=== PATIENT | female | born 1960 | race African-American/Black ===

== ENCOUNTER 2017-01-16 15:02 | Inpatient (IN) | payer SELFPAY ==
[~2017-01-16] VITALS: Ht 157.5 cm; Wt 84.5 kg
[~2017-01-16 15:02] MED LIST: AMLO1CAP PO; BENA20TA2 PO; GLIP10TA13 PO; METF-620 PO; SULF1TAB24 PO
[2017-01-16] MEDS ORDERED: IV NORMAL SALINE 500ML BAG 500 ML IV ONE (15:45)
--- NOTE | 2017-01-16 16:09 | RAD ---
CT head without contrast 01/16/2017 at 1545 hours Indication: Right-sided facial droop and numbness with speech deficit Comparison: CT head 02/02/2015 Technique: Multiple axial CT images of the head were obtained from skull base to the vertex without intravenous contrast. Findings: Ventricles, sulci and basal cisterns are within normal limits. There is low attenuation in the left frontal. Ventricular white matter, right frontal periventricular white matter, right villela radiata and right precentral gyrus compatible with remote infarcts. Focal low attenuation in the right basal ganglia is compatible with a lacunar infarct. Findings are not significantly changed since 02/02/2015. No significant loss of the thomason-white matter differentiation to suggest an acute or subacute infarct. There is no intracranial hemorrhage. No mass, mass effect or midline shift. Visualized orbits paranasal sinuses and mastoid air cells are normal. Scalp and calvarium are normal. No acute fracture. Impression: 1. Sequela of chronic infarcts are noted, as detailed above. 2. No evidence for acute or subacute ischemia by CT. This does not exclude acute/subacute ischemia. No acute intracranial hemorrhage. Critical findings: Critical findings were discussed with Dr. Baugh at 4:00 PM on 01/16/[address] Gerard. PQRS Compliance Statement: One or more of the following individualized dose reduction techniques were utilized for this examination: 1. Automated exposure control 2. Adjustment of the mA and/or kV according to patient size 3. Use of iterative reconstruction technique
[2017-01-16 17:24] LABS: BASO % 1 % (0-3); EOS % 1 % (0-3); HEMATOCRIT 35.3 % (36.0-47.0); HEMOGLOBIN 11.8 g/dL (12.0-15.5); LYMPH # 1.7 x10^3/uL (1.0-4.8); LYMPH % 47 % (24-48); MEAN CORPUSCULAR HEMOGLOBIN 31 pg (25-35); MEAN CORPUSCULAR HGB CONC 34 g/dL (31-37); MEAN CORPUSCULAR VOLUME 92 fL (79-100); MONO % 7 % (0-9); NEUT % 44 % (31-73); PLATELET COUNT 245 x10^3/uL (140-400); RED BLOOD COUNT 3.85 x10^6/uL (3.50-5.40); RED CELL DISTRIBUTION WIDTH 14.2 % (11.5-14.5); WHITE BLOOD COUNT 3.6 x10^3/uL (4.0-11.0)
[2017-01-16 17:33] LABS: CREATININE 0.9 mg/dL (0.6-1.0); GFR 78.7; POTASSIUM 3.9 mmol/L (3.5-5.1)
[2017-01-16 17:39] LABS: ALBUMIN 3.9 g/dL (3.4-5.0); ALBUMIN/GLOBULIN RATIO 1.1 (1.0-1.7); TOTAL PROTEIN 7.5 g/dL (6.4-8.2)
[2017-01-16] MEDS ORDERED: IV NORMAL SALINE 1000ML BAG 1,000 ML IV ONE (17:45)
[2017-01-16 18:07] LABS: BILIRUBIN,URINE NEGATIVE (NEG); GLUCOSE,URINE NEGATIVE (NEG); NITRITE,URINE NEGATIVE (NEG); PH,URINE 7.5; PROTEIN,URINE NEGATIVE (NEG-TRACE)
[2017-01-16 18:25] LABS: BACTERIA,URINE FEW /HPF (0-FEW); RBC,URINE 0 /HPF (0-2); SQUAMOUS EPITHELIAL CELL,UR OCC /LPF
--- NOTE | 2017-01-16 19:22 | PHYS DOC ---
Past Medical History Past Medical History: CVA, Diabetes-Type II, Hypertension, Stroke Past Surgical History: Hysterectomy Alcohol Use: None Drug Use: None Adult General Chief Complaint Chief Complaint: NEURO SYMPTOMS/DEFICITS HPI HPI 56-year-old female with a history of stroke 4 years ago with no residual and another stroke 2 years ago with mild dysarthria since and mild right lower facial droop and her daughter now presents emergency department with suspected stroke symptoms. At 6 AM this morning patient was dropping off a family member at soccer practice and was observed to have difficulty with her speech and a right lower facial droop. This afternoon daughter became aware of the symptoms and brought the patient to the emergency department for evaluation since still has difficulty with speech and right mouth droop which is worse than her baseline. She also has right leg weakness which is new for her today. She was made a a code stroke in the emergency department Review of Systems Review of Systems Constitutional: Denies fever or chills [] Eyes: Denies change in visual acuity, redness, or eye pain [] HENT: Denies nasal congestion or sore throat [] Respiratory: Denies cough or shortness of breath [] Cardiovascular: No additional information not addressed in HPI [] GI: Denies abdominal pain, nausea, vomiting, bloody stools or diarrhea [] : Denies dysuria or hematuria [] Musculoskeletal: Denies back pain or joint pain [] Integument: Denies rash or skin lesions [] Neurologic: Denies headache, focal weakness or sensory changes [] Endocrine: Denies polyuria or polydipsia [] Current Medications Current Medications Current Medications Medications (Trade) Dose Ordered Sig/Amirah Start Time Stop Time Status Last Admin Dose Admin Ceftriaxone Sodium 1 gm/ Sodium Chloride 50 ml @ 100 mls/hr 1X ONCE 01/16/17 19:00 01/16/17 19:29 UNV Ceftriaxone Sodium 50 ml @ 100 mls/hr 1X ONCE 01/16/17 19:15 01/16/17 19:44 DC 01/16/17 19:32 100 MLS/HR Sodium Chloride 1,000 ml @ 125 mls/hr 1X ONCE 01/16/17 17:45 01/17/17 01:44 01/16/17 18:48 125 MLS/HR Allergies Allergies Allergies Coded Allergies Type Severity Reaction Last Updated Verified No Known Drug Allergies 02/04/15 No Physical Exam Physical Exam weak appearing 56-year-old female with right lower facial droop and dysarthria. Right leg weakness with ataxia in that extremity and upgoing toe on the right foot. Upper extremities 4 out of 5 bilateral weakness with no asymmetry or ataxia. Remainder of cranial nerves are intact Constitutional: Well developed, well nourished, no acute distress, non-toxic appearance. [] HENT: Normocephalic, atraumatic, bilateral external ears normal, oropharynx moist, no oral exudates, nose normal. [] Eyes: PERRLA, EOMI, conjunctiva normal, no discharge. [] Neck: Normal range of motion, no tenderness, supple, no stridor. [] Cardiovascular:Heart rate regular rhythm, no murmur [] Lungs & Thorax: Bilateral breath sounds clear to auscultation [] Abdomen: Bowel sounds normal, soft, no tenderness, no masses, no pulsatile masses. [] Skin: Warm, dry, no erythema, no rash. [] Back: No tenderness, no CVA tenderness. [] Extremities: No tenderness, no cyanosis, no clubbing, ROM intact, no edema. [] Neurologic: Alert and oriented X 3, normal motor function, normal sensory function, as above] Psychologic: Affect, judgement normal, mood normal. [] Current Patient Data Vital Signs Vital Signs Date Time Temp Pulse Resp B/P (MAP) Pulse Ox O2 Delivery O2 Flow Rate FiO2 01/16/17 18:42 83 14 140/76 (97) 98 Room Air 01/16/17 15:31 98.4 98.4 Lab Values Laboratory Tests Test 01/16/17 15:35 01/16/17 17:20 01/16/17 17:50 Glucose (Fingerstick) 79 mg/dL (70-99) White Blood Count 3.6 x10^3/uL (4.0-11.0) L Red Blood Count 3.85 x10^6/uL (3.50-5.40) Hemoglobin 11.8 g/dL (12.0-15.5) L Hematocrit 35.3 % (36.0-47.0) L Mean Corpuscular Volume 92 fL (79-100) Mean Corpuscular Hemoglobin 31 pg (25-35) Mean Corpuscular Hemoglobin Concent 34 g/dL (31-37) Red Cell Distribution Width 14.2 % (11.5-14.5) Platelet Count 245 x10^3/uL (140-400) Neutrophils (%) (Auto) 44 % (31-73) Lymphocytes (%) (Auto) 47 % (24-48) Monocytes (%) (Auto) 7 % (0-9) Eosinophils (%) (Auto) 1 % (0-3) Basophils (%) (Auto) 1 % (0-3) Neutrophils # (Auto) 1.6 x10^3uL (1.8-7.7) L Lymphocytes # (Auto) 1.7 x10^3/uL (1.0-4.8) Monocytes # (Auto) 0.2 x10^3/uL (0.0-1.1) Eosinophils # (Auto) 0.0 x10^3/uL (0.0-0.7) Basophils # (Auto) 0.0 x10^3/uL (0.0-0.2) Sodium Level 141 mmol/L (136-145) Potassium Level 3.9 mmol/L (3.5-5.1) Chloride Level 104 mmol/L (98-107) Carbon Dioxide Level 28 mmol/L (21-32) Anion Gap 9 (6-14) Blood Urea Nitrogen 15 mg/dL (7-20) Creatinine 0.9 mg/dL (0.6-1.0) Estimated GFR (Cockcroft-Gault) 78.7 BUN/Creatinine Ratio 17 (6-20) Glucose Level 90 mg/dL (70-99) Calcium Level 9.0 mg/dL (8.5-10.1) Total Bilirubin 1.0 mg/dL (0.2-1.0) Aspartate Amino Transferase (AST) 13 U/L (15-37) L Alanine Aminotransferase (ALT) 12 U/L (14-59) L Alkaline Phosphatase 60 U/L (46-116) Troponin I Quantitative < 0.017 ng/mL (0.000-0.055) Total Protein 7.5 g/dL (6.4-8.2) Albumin 3.9 g/dL (3.4-5.0) Albumin/Globulin Ratio 1.1 (1.0-1.7) Urine Color Yellow Urine Clarity Cloudy Urine pH 7.5 Urine Specific [place] 1.020 Urine Protein Negative mg/dL (NEG-TRACE) Urine Glucose (UA) Negative mg/dL (NEG) Urine Ketones (Stick) Negative mg/dL (NEG) Urine Blood Negative (NEG) Urine Nitrite Negative (NEG) Urine Bilirubin Negative (NEG) Urine Urobilinogen Dipstick 2.0 mg/dL (0.2 mg/dL) Urine Leukocyte Esterase Moderate (NEG) Urine RBC 0 /HPF (0-2) Urine WBC 11-20 /HPF (0-4) Urine Squamous Epithelial Cells Occ /LPF Urine Amorphous Sediment Present /HPF Urine Bacteria Few /HPF (0-FEW) Urine Mucus Slight /LPF Laboratory Tests 01/16/17 17:20 Laboratory Tests 01/16/17 17:20 EKG EKG Normal sinus rhythm at 78 left axis deviation no STEMI interpreted by me [] Radiology/Procedures Radiology/Procedures [] Course & Med Decision Making Course & Med Decision Making Pertinent Labs and Imaging studies reviewed. (See chart for details) Signs and symptoms consistent with acute CVA with symptoms noticed at 6 AM last known well was last night. Thrombolytics were considered but not indicated because of time since onset of symptoms.. CT of the head with no visible acute abnormality. Remainder of workup consistent with urinary tract infection and otherwise unremarkable. Antibiotics initiated or UTI coverage and urine culture pending. Case discussed with Dr. 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 Darby of neurology. She requests aspirin by mouth and no further workup or treatment at this time. Critical care 35 minutes [] Dragon Disclaimer Dragon Disclaimer This electronic medical record was generated, in whole or in part, using a voice recognition dictation system. Departure Departure Impression: Primary Impression: Acute CVA (cerebrovascular accident) Additional Impression: Urinary tract infection Disposition: ADMITTED INPATIENT Condition: GUARDED Referrals: ERIC GRECO MD (PCP) Problem Qualifiers ROBERTO COMBS MD Jan 16, 2017 19:22
[2017-01-16] MEDS ORDERED: ASPIRIN CHEWABLE 81 MG TABLET. PO ONE (20:30)
--- NOTE | 2017-01-16 21:26 | PDOC1 ---
History and Physical Date of Admission Date of Admission DATE: 01/16/17 TIME: 21:25 Identification/Chief Complaint Chief Complaint CVA Problems: Source Source: Patient History of Present Illness History of Present Illness Mrs Roper is a 56 y/o woman with history of CVA x2 in the past, who presented on urging of her daughter, who thought she had developed facial droop, dysarthria and R sided weakness. Patient herself did not feel any differently than normal. She explains that all the symptoms noted are chronic in her since her second stroke. She denies any headache, vision problems or speech difficulties. According to family members, she was noted to have speech difficulties at 6AM in the morning; her daughter observed it in the afternoon and brought patient to the ER. The timeframe excluded her from tPA administration. In the ER, a non-con CT did not reveal any acute issues. Only abnormality was a UA indicative of UTI. In review of her home medications, neither aspirin nor plavix or other blood thinners are noted. She is now admitted for observation and further work up. Past Medical History Cardiovascular: HTN CENTRAL NERVOUS SYSTEM: CVA Endocrine: Diabetes Past Surgical History Past Surgical History: No pertinent history Family History Family History FH unknown to patient Social History Smoke: No ALCOHOL: none Drugs: None Current Problem List Problem List Problems Medical Problems: (1) Acute CVA (cerebrovascular accident) Status: Acute (2) Urinary tract infection Status: Acute Problems: Current Medications Current Medications Active Scripts Active Bactrim Ds Tablet (Sulfamethoxazole/Trimethoprim) 1 Each Tablet 1 Tab PO BID Benazepril Hcl 20 Mg Tablet 1 Tab PO DAILY Reported Lotrel 10-20 Mg Capsule (Amlodipine Besylate/Benazepril) 1 Each Capsule 1 Cap PO DAILY Glipizide 10 Mg Tablet 1 Tab PO BID Metformin Hcl 1,000 Mg Tablet 1 Tab PO BID Allergies Allergies: Coded Allergies: No Known Drug Allergies (Unverified , 02/04/15) ROS Review of System positive as per HPI. pt denies any other sx in organ system review. Physical Exam General: Alert, Oriented X3, Cooperative, No acute distress HEENT: Atraumatic Lungs: Clear to auscultation Heart: RRR Abdomen: Normal bowel sounds, Soft, No tenderness Extremities: No clubbing, No cyanosis, No edema Neuro: Normal speech, Other (minimal R facial droop. 4+/5 in prox UE and LE on right, 5/5 on left) Vitals Vitals Vital Signs Date Time Temp Pulse Resp B/P (MAP) Pulse Ox O2 Delivery O2 Flow Rate FiO2 01/16/17 20:33 82 16 143/85 (104) 98 Room Air 01/16/17 15:31 98.4 98.4 Labs Labs Laboratory Tests Test 01/16/17 15:35 01/16/17 17:20 01/16/17 17:50 Glucose (Fingerstick) 79 mg/dL (70-99) White Blood Count 3.6 x10^3/uL (4.0-11.0) Red Blood Count 3.85 x10^6/uL (3.50-5.40) Hemoglobin 11.8 g/dL (12.0-15.5) Hematocrit 35.3 % (36.0-47.0) Mean Corpuscular Volume 92 fL (79-100) Mean Corpuscular Hemoglobin 31 pg (25-35) Mean Corpuscular Hemoglobin Concent 34 g/dL (31-37) Red Cell Distribution Width 14.2 % (11.5-14.5) Platelet Count 245 x10^3/uL (140-400) Neutrophils (%) (Auto) 44 % (31-73) Lymphocytes (%) (Auto) 47 % (24-48) Monocytes (%) (Auto) 7 % (0-9) Eosinophils (%) (Auto) 1 % (0-3) Basophils (%) (Auto) 1 % (0-3) Neutrophils # (Auto) 1.6 x10^3uL (1.8-7.7) Lymphocytes # (Auto) 1.7 x10^3/uL (1.0-4.8) Monocytes # (Auto) 0.2 x10^3/uL (0.0-1.1) Eosinophils # (Auto) 0.0 x10^3/uL (0.0-0.7) Basophils # (Auto) 0.0 x10^3/uL (0.0-0.2) Sodium Level 141 mmol/L (136-145) Potassium Level 3.9 mmol/L (3.5-5.1) Chloride Level 104 mmol/L (98-107) Carbon Dioxide Level 28 mmol/L (21-32) Anion Gap 9 (6-14) Blood Urea Nitrogen 15 mg/dL (7-20) Creatinine 0.9 mg/dL (0.6-1.0) Estimated GFR (Cockcroft-Gault) 78.7 BUN/Creatinine Ratio 17 (6-20) Glucose Level 90 mg/dL (70-99) Calcium Level 9.0 mg/dL (8.5-10.1) Total Bilirubin 1.0 mg/dL (0.2-1.0) Aspartate Amino Transf (AST/SGOT) 13 U/L (15-37) Alanine Aminotransferase (ALT/SGPT) 12 U/L (14-59) Alkaline Phosphatase 60 U/L (46-116) Troponin I Quantitative < 0.017 ng/mL (0.000-0.055) Total Protein 7.5 g/dL (6.4-8.2) Albumin 3.9 g/dL (3.4-5.0) Albumin/Globulin Ratio 1.1 (1.0-1.7) Urine Color Yellow Urine Clarity Cloudy Urine pH 7.5 Urine Specific [place] 1.020 Urine Protein Negative mg/dL (NEG-TRACE) Urine Glucose (UA) Negative mg/dL (NEG) Urine Ketones (Stick) Negative mg/dL (NEG) Urine Blood Negative (NEG) Urine Nitrite Negative (NEG) Urine Bilirubin Negative (NEG) Urine Urobilinogen Dipstick 2.0 mg/dL (0.2 mg/dL) Urine Leukocyte Esterase Moderate (NEG) Urine RBC 0 /HPF (0-2) Urine WBC 11-20 /HPF (0-4) Urine Squamous Epithelial Cells Occ /LPF Urine Amorphous Sediment Present /HPF Urine Bacteria Few /HPF (0-FEW) Urine Mucus Slight /LPF Laboratory Tests Test 01/16/17 15:35 01/16/17 17:20 01/16/17 17:50 Glucose (Fingerstick) 79 mg/dL (70-99) White Blood Count 3.6 x10^3/uL (4.0-11.0) Red Blood Count 3.85 x10^6/uL (3.50-5.40) Hemoglobin 11.8 g/dL (12.0-15.5) Hematocrit 35.3 % (36.0-47.0) Mean Corpuscular Volume 92 fL (79-100) Mean Corpuscular Hemoglobin 31 pg (25-35) Mean Corpuscular Hemoglobin Concent 34 g/dL (31-37) Red Cell Distribution Width 14.2 % (11.5-14.5) Platelet Count 245 x10^3/uL (140-400) Neutrophils (%) (Auto) 44 % (31-73) Lymphocytes (%) (Auto) 47 % (24-48) Monocytes (%) (Auto) 7 % (0-9) Eosinophils (%) (Auto) 1 % (0-3) Basophils (%) (Auto) 1 % (0-3) Neutrophils # (Auto) 1.6 x10^3uL (1.8-7.7) Lymphocytes # (Auto) 1.7 x10^3/uL (1.0-4.8) Monocytes # (Auto) 0.2 x10^3/uL (0.0-1.1) Eosinophils # (Auto) 0.0 x10^3/uL (0.0-0.7) Basophils # (Auto) 0.0 x10^3/uL (0.0-0.2) Sodium Level 141 mmol/L (136-145) Potassium Level 3.9 mmol/L (3.5-5.1) Chloride Level 104 mmol/L (98-107) Carbon Dioxide Level 28 mmol/L (21-32) Anion Gap 9 (6-14) Blood Urea Nitrogen 15 mg/dL (7-20) Creatinine 0.9 mg/dL (0.6-1.0) Estimated GFR (Cockcroft-Gault) 78.7 BUN/Creatinine Ratio 17 (6-20) Glucose Level 90 mg/dL (70-99) Calcium Level 9.0 mg/dL (8.5-10.1) Total Bilirubin 1.0 mg/dL (0.2-1.0) Aspartate Amino Transf (AST/SGOT) 13 U/L (15-37) Alanine Aminotransferase (ALT/SGPT) 12 U/L (14-59) Alkaline Phosphatase 60 U/L (46-116) Troponin I Quantitative < 0.017 ng/mL (0.000-0.055) Total Protein 7.5 g/dL (6.4-8.2) Albumin 3.9 g/dL (3.4-5.0) Albumin/Globulin Ratio 1.1 (1.0-1.7) Urine Color Yellow Urine Clarity Cloudy Urine pH 7.5 Urine Specific [place] 1.020 Urine Protein Negative mg/dL (NEG-TRACE) Urine Glucose (UA) Negative mg/dL (NEG) Urine Ketones (Stick) Negative mg/dL (NEG) Urine Blood Negative (NEG) Urine Nitrite Negative (NEG) Urine Bilirubin Negative (NEG) Urine Urobilinogen Dipstick 2.0 mg/dL (0.2 mg/dL) Urine Leukocyte Esterase Moderate (NEG) Urine RBC 0 /HPF (0-2) Urine WBC 11-20 /HPF (0-4) Urine Squamous Epithelial Cells Occ /LPF Urine Amorphous Sediment Present /HPF Urine Bacteria Few /HPF (0-FEW) Urine Mucus Slight /LPF VTE Prophylaxis Ordered VTE Prophylaxis Devices: Yes VTE Pharmacological Prophylaxi: Yes Assessment/Plan Assessment/Plan Mrs Roper is a 56 y/o with prior history of CVA resulting in mild right sided weakness, who now presents with pronounced worsening of neurological deficits, at least according to daughter. Will obtain MRI brain to delineate old vs new stroke. Cannot rule out pseudo symptoms brought on by UTI. Neuro consult will be obtained. She will be started on aspirin and plavix. For the suspected UTI, she has received a dose of ceftriaxone in the ER. will await culture and sensitivities to determine antibiotic course. She is on metformin at home for DM. will hold med for now with planned contrast administration. Monitor Glucose with ISS. Her hypertension his not optimally controlled on her home medication. monitor; may need increase in dose. BENJAMIN DRAPER MD Jan 16, 2017 21:26
[2017-01-16 21:40] VITALS: BP 145/85
[2017-01-17] MEDS: ENOXAPARIN 40 MG/0.4 ML SYRINGE. SQ SCH ×2 (00:48→21:02)
--- NOTE | 2017-01-17 01:55 | ACF ---
Admission Forms Criteria TELEMETRY CARE Telemetry Admission Guidelines (Place 'X' for any and all applicable criteria): Admission to telemetry [A] may be indicated for ANY ONE of the following(1)(2)(3 )(4)(5): [X]I. Cardiac disease, including ANY ONE of the following (9)(10)(11)(12)(13 ): [ ]a) Postacute [place] [ ]b) Low-risk patients with ST-segment elevation [place] who have undergone successful percutaneous coronary intervention [ ]c) Unstable angina [ ]d) Suspected [place] (until it is ruled out) [ ]e) Post cardiac surgery (first 48 to 72 hours unless complications occur) [ ]f) Acute arrhythmias (including significant tachycardia or bradycardia) [B] [ ]g) Firing of an implantable cardioverter defibrillator [C] [ ]h) Suspected pacemaker or implantable cardioverter defibrillator malfunction (10) [ ]i) New administration or adjustment of an antiarrhythmic drug [D ] [ ]j) Child admitted for acute congestive heart failure [ ]j) Long QT syndrome [ ]k) Advanced heart block (eg, second-degree Mobitz type II, third- degree heart block) [ ]l) Acute myocarditis or pericarditis [ ]m) Short-term (ambulatory or inpatient) monitoring after a cardiac procedure as indicated by ANY ONE of the following [E]: [ ]i) Electrophysiologic studies [ ]ii) Percutaneous coronary intervention with stent placement [ ]iii) Pacemaker placement with cardiac conduction defect [ ]iv) Implantable cardiac defibrillator placement [ ]II. Drug overdose or poisoning with substance that causes arrhythmias or QT prolongation (eg, phenothiazines, sympathomimetic agents, cyclic antidepressants, digitalis, antiarrhythmic drugs)(15) [ ]III. Short-term (ambulatory or inpatient) monitoring after therapeutic or diagnostic procedure requiring conscious sedation or anesthesia (eg, endoscopy, elective cardioversion) [X]IV. Acute cerebrovascular even[F](18) [ ]V. Massive blood transfusion (eg, at least 10 units of packed red blood cells in 24 hours) [ ]. Variceal bleeding after endoscopy, sclerotherapy, or IV vasopressin [ ]VII. Uncorrected electrolyte abnormalities associated with an increased risk of dangerous arrhythmia [G]; examples include [ ]a) Hyperkalemia with attributable ECG changes [ ]b) Potassium greater than 6.5 mmol/L (mEq/L) in a patient without history of chronic renal disease [ ]c) Prolonged QT attributed to hypokalemia, hypomagnesemia, or hypocalcemia [ ]VIII.Unexplained syncope or other neurologic event suspected of being due to arrhythmia due to a finding that increases risk; examples include(19)(20)(21): [ ]a) High-risk ECG findings (eg, bifascicular block, bradycardia, abnormal QT interval, ventricular pre- excitation) [ ]b) History of previous syncope due to arrhythmia [ ]c) Abnormal ventricular function (eg, reduced ejection fraction ) [ ]d) Exertional or supine syncope [ ]e) Concerning syncope characteristics (eg, sudden loss of consciousness without prodrome) [ ]f) Family history of sudden [ ]g) Use of arrhythmogenic medication [ ]h) Suspected cardiac ischemia [ ]i) Known channelopathy (eg, long QT syndrome, Brugada syndrome, or catecholaminergic paroxysmal ventricular tachycardia) [ ]j) Known structural heart disease (eg, hypertrophic cardiomyopathy , severe valvular disease) [ ]k) Palpitations preceding syncope The original [employer] content created by [employer] has been revised. The portions of the content which have been revised are identified through the use of italic text or in bold, and [facility] has neither reviewed nor approved the modified material. All other unmodified content is copyright [employer]. Please see references footnoted in the original [employer] edition 2016 Admission Criteria Met?: Yes KIANNA PENN Jan 17, 2017 01:55
[2017-01-17 03:00] VITALS: BP 124/71
--- NOTE | 2017-01-17 06:23 | EKG ---
[facility] [address] [place] [address] Test Date: 2017-01-16 Test Time: 16:06:42 Pat Name: JAMES VIEYRA Department: Room: 648 1 Gender: F Thoracic Medicine Physician: : [id number] Requested By: ROBERTO COMBS Order Number: [id number] Reading MD: Bing Wagner Measurements Intervals [place] Rate: 78 P: 0 CA: 140 QRS: -17 QRSD: 84 T: 17 QT: 360 QTc: 414 Interpretive Statements SINUS RHYTHM LEFTWARD AXIS QRS(T) CONTOUR ABNORMALITY CANNOT RULE OUT ANTEROSEPTAL MYOCARDIAL DAMAGE Electronically Signed On 01-19-2017 21:28:22 CDT by Bing Wagner
[2017-01-17 07:00] VITALS: BP 130/71
--- NOTE | 2017-01-17 07:28 | RAD ---
Portable chest, 17 2017: History: Confusion, possible stroke Comparison is made to a study from 07/16/2003. The heart size and pulmonary vascularity are normal. No pulmonary infiltrates are seen. There is no evidence of pleural fluid. Moderate hypertrophic spurring is present in the spine. IMPRESSION: No acute cardiopulmonary abnormality is detected.
[2017-01-17] MEDS: ASPIRIN 325 MG TABLET PO SCH (08:38)
[2017-01-17] MEDS: CLOPIDOGREL BISULFATE 75 MG TABLET PO SCH (08:38)
[2017-01-17] MEDS: LISINOPRIL 20 MG TABLET PO SCH (08:43)
[2017-01-17] MEDS ORDERED: CONTRAST GIVEN MC PRN (09:45)
[2017-01-17] MEDS ORDERED: IOHEXOL 300 MG/ML 75 ML VIAL IV ONE (09:45)
--- NOTE | 2017-01-17 10:35 | PDOC ---
PROGRESS NOTES Chief Complaint Chief Complaint Chief complaint CVA symptoms Assessment and plan #1 questionable CVA symptoms #2 hypertension #3 is history of CVA. Plan #1 her blood pressure has been controlled, continue physical therapy and occupational therapy, patient declined to have a CTA as ordered by neurology she did not want to have them the IV line as recommended by radiology. She did not have any symptoms of urinary tract infection. Echocardiogram has been ordered, continue Plavix. Discharge planning based on the neurology and physical therapy recommendations. Vitals Vitals Vital Signs Date Time Temp Pulse Resp B/P (MAP) Pulse Ox O2 Delivery O2 Flow Rate FiO2 01/17/17 08:43 76 130/71 01/17/17 08:03 Room Air 01/17/17 07:00 98.4 18 100 98.4 Physical Exam General: Alert, Oriented X3, Cooperative, No acute distress Heart: Normal S1, Normal S2 Abdomen: Normal bowel sounds, Soft, No tenderness Extremities: No clubbing, No cyanosis, No edema Labs LABS Laboratory Tests Test 01/16/17 15:35 01/16/17 17:20 01/16/17 17:50 01/17/17 07:16 Glucose (Fingerstick) 79 mg/dL (70-99) 69 mg/dL (70-99) White Blood Count 3.6 x10^3/uL (4.0-11.0) Red Blood Count 3.85 x10^6/uL (3.50-5.40) Hemoglobin 11.8 g/dL (12.0-15.5) Hematocrit 35.3 % (36.0-47.0) Mean Corpuscular Volume 92 fL (79-100) Mean Corpuscular Hemoglobin 31 pg (25-35) Mean Corpuscular Hemoglobin Concent 34 g/dL (31-37) Red Cell Distribution Width 14.2 % (11.5-14.5) Platelet Count 245 x10^3/uL (140-400) Neutrophils (%) (Auto) 44 % (31-73) Lymphocytes (%) (Auto) 47 % (24-48) Monocytes (%) (Auto) 7 % (0-9) Eosinophils (%) (Auto) 1 % (0-3) Basophils (%) (Auto) 1 % (0-3) Neutrophils # (Auto) 1.6 x10^3uL (1.8-7.7) Lymphocytes # (Auto) 1.7 x10^3/uL (1.0-4.8) Monocytes # (Auto) 0.2 x10^3/uL (0.0-1.1) Eosinophils # (Auto) 0.0 x10^3/uL (0.0-0.7) Basophils # (Auto) 0.0 x10^3/uL (0.0-0.2) Sodium Level 141 mmol/L (136-145) Potassium Level 3.9 mmol/L (3.5-5.1) Chloride Level 104 mmol/L (98-107) Carbon Dioxide Level 28 mmol/L (21-32) Anion Gap 9 (6-14) Blood Urea Nitrogen 15 mg/dL (7-20) Creatinine 0.9 mg/dL (0.6-1.0) Estimated GFR (Cockcroft-Gault) 78.7 BUN/Creatinine Ratio 17 (6-20) Glucose Level 90 mg/dL (70-99) Calcium Level 9.0 mg/dL (8.5-10.1) Total Bilirubin 1.0 mg/dL (0.2-1.0) Aspartate Amino Transf (AST/SGOT) 13 U/L (15-37) Alanine Aminotransferase (ALT/SGPT) 12 U/L (14-59) Alkaline Phosphatase 60 U/L (46-116) Troponin I Quantitative < 0.017 ng/mL (0.000-0.055) Total Protein 7.5 g/dL (6.4-8.2) Albumin 3.9 g/dL (3.4-5.0) Albumin/Globulin Ratio 1.1 (1.0-1.7) Urine Color Yellow Urine Clarity Cloudy Urine pH 7.5 Urine Specific [place] 1.020 Urine Protein Negative mg/dL (NEG-TRACE) Urine Glucose (UA) Negative mg/dL (NEG) Urine Ketones (Stick) Negative mg/dL (NEG) Urine Blood Negative (NEG) Urine Nitrite Negative (NEG) Urine Bilirubin Negative (NEG) Urine Urobilinogen Dipstick 2.0 mg/dL (0.2 mg/dL) Urine Leukocyte Esterase Moderate (NEG) Urine RBC 0 /HPF (0-2) Urine WBC 11-20 /HPF (0-4) Urine Squamous Epithelial Cells Occ /LPF Urine Amorphous Sediment Present /HPF Urine Bacteria Few /HPF (0-FEW) Urine Mucus Slight /LPF Assessment and Plan Assessmemt and Plan Problems Medical Problems: (1) Acute CVA (cerebrovascular accident) Status: Acute (2) Urinary tract infection Status: Acute Problems: Comment Review of Relevant I have reviewed the following items pranav (where applicable) has been applied. Labs Laboratory Tests Test 01/16/17 15:35 01/16/17 17:20 01/16/17 17:50 01/17/17 07:16 Glucose (Fingerstick) 79 mg/dL (70-99) 69 mg/dL (70-99) White Blood Count 3.6 x10^3/uL (4.0-11.0) Red Blood Count 3.85 x10^6/uL (3.50-5.40) Hemoglobin 11.8 g/dL (12.0-15.5) Hematocrit 35.3 % (36.0-47.0) Mean Corpuscular Volume 92 fL (79-100) Mean Corpuscular Hemoglobin 31 pg (25-35) Mean Corpuscular Hemoglobin Concent 34 g/dL (31-37) Red Cell Distribution Width 14.2 % (11.5-14.5) Platelet Count 245 x10^3/uL (140-400) Neutrophils (%) (Auto) 44 % (31-73) Lymphocytes (%) (Auto) 47 % (24-48) Monocytes (%) (Auto) 7 % (0-9) Eosinophils (%) (Auto) 1 % (0-3) Basophils (%) (Auto) 1 % (0-3) Neutrophils # (Auto) 1.6 x10^3uL (1.8-7.7) Lymphocytes # (Auto) 1.7 x10^3/uL (1.0-4.8) Monocytes # (Auto) 0.2 x10^3/uL (0.0-1.1) Eosinophils # (Auto) 0.0 x10^3/uL (0.0-0.7) Basophils # (Auto) 0.0 x10^3/uL (0.0-0.2) Sodium Level 141 mmol/L (136-145) Potassium Level 3.9 mmol/L (3.5-5.1) Chloride Level 104 mmol/L (98-107) Carbon Dioxide Level 28 mmol/L (21-32) Anion Gap 9 (6-14) Blood Urea Nitrogen 15 mg/dL (7-20) Creatinine 0.9 mg/dL (0.6-1.0) Estimated GFR (Cockcroft-Gault) 78.7 BUN/Creatinine Ratio 17 (6-20) Glucose Level 90 mg/dL (70-99) Calcium Level 9.0 mg/dL (8.5-10.1) Total Bilirubin 1.0 mg/dL (0.2-1.0) Aspartate Amino Transf (AST/SGOT) 13 U/L (15-37) Alanine Aminotransferase (ALT/SGPT) 12 U/L (14-59) Alkaline Phosphatase 60 U/L (46-116) Troponin I Quantitative < 0.017 ng/mL (0.000-0.055) Total Protein 7.5 g/dL (6.4-8.2) Albumin 3.9 g/dL (3.4-5.0) Albumin/Globulin Ratio 1.1 (1.0-1.7) Urine Color Yellow Urine Clarity Cloudy Urine pH 7.5 Urine Specific [place] 1.020 Urine Protein Negative mg/dL (NEG-TRACE) Urine Glucose (UA) Negative mg/dL (NEG) Urine Ketones (Stick) Negative mg/dL (NEG) Urine Blood Negative (NEG) Urine Nitrite Negative (NEG) Urine Bilirubin Negative (NEG) Urine Urobilinogen Dipstick 2.0 mg/dL (0.2 mg/dL) Urine Leukocyte Esterase Moderate (NEG) Urine RBC 0 /HPF (0-2) Urine WBC 11-20 /HPF (0-4) Urine Squamous Epithelial Cells Occ /LPF Urine Amorphous Sediment Present /HPF Urine Bacteria Few /HPF (0-FEW) Urine Mucus Slight /LPF Laboratory Tests Test 01/16/17 15:35 01/16/17 17:20 01/16/17 17:50 01/17/17 07:16 Glucose (Fingerstick) 79 mg/dL (70-99) 69 mg/dL (70-99) White Blood Count 3.6 x10^3/uL (4.0-11.0) Red Blood Count 3.85 x10^6/uL (3.50-5.40) Hemoglobin 11.8 g/dL (12.0-15.5) Hematocrit 35.3 % (36.0-47.0) Mean Corpuscular Volume 92 fL (79-100) Mean Corpuscular Hemoglobin 31 pg (25-35) Mean Corpuscular Hemoglobin Concent 34 g/dL (31-37) Red Cell Distribution Width 14.2 % (11.5-14.5) Platelet Count 245 x10^3/uL (140-400) Neutrophils (%) (Auto) 44 % (31-73) Lymphocytes (%) (Auto) 47 % (24-48) Monocytes (%) (Auto) 7 % (0-9) Eosinophils (%) (Auto) 1 % (0-3) Basophils (%) (Auto) 1 % (0-3) Neutrophils # (Auto) 1.6 x10^3uL (1.8-7.7) Lymphocytes # (Auto) 1.7 x10^3/uL (1.0-4.8) Monocytes # (Auto) 0.2 x10^3/uL (0.0-1.1) Eosinophils # (Auto) 0.0 x10^3/uL (0.0-0.7) Basophils # (Auto) 0.0 x10^3/uL (0.0-0.2) Sodium Level 141 mmol/L (136-145) Potassium Level 3.9 mmol/L (3.5-5.1) Chloride Level 104 mmol/L (98-107) Carbon Dioxide Level 28 mmol/L (21-32) Anion Gap 9 (6-14) Blood Urea Nitrogen 15 mg/dL (7-20) Creatinine 0.9 mg/dL (0.6-1.0) Estimated GFR (Cockcroft-Gault) 78.7 BUN/Creatinine Ratio 17 (6-20) Glucose Level 90 mg/dL (70-99) Calcium Level 9.0 mg/dL (8.5-10.1) Total Bilirubin 1.0 mg/dL (0.2-1.0) Aspartate Amino Transf (AST/SGOT) 13 U/L (15-37) Alanine Aminotransferase (ALT/SGPT) 12 U/L (14-59) Alkaline Phosphatase 60 U/L (46-116) Troponin I Quantitative < 0.017 ng/mL (0.000-0.055) Total Protein 7.5 g/dL (6.4-8.2) Albumin 3.9 g/dL (3.4-5.0) Albumin/Globulin Ratio 1.1 (1.0-1.7) Urine Color Yellow Urine Clarity Cloudy Urine pH 7.5 Urine Specific [place] 1.020 Urine Protein Negative mg/dL (NEG-TRACE) Urine Glucose (UA) Negative mg/dL (NEG) Urine Ketones (Stick) Negative mg/dL (NEG) Urine Blood Negative (NEG) Urine Nitrite Negative (NEG) Urine Bilirubin Negative (NEG) Urine Urobilinogen Dipstick 2.0 mg/dL (0.2 mg/dL) Urine Leukocyte Esterase Moderate (NEG) Urine RBC 0 /HPF (0-2) Urine WBC 11-20 /HPF (0-4) Urine Squamous Epithelial Cells Occ /LPF Urine Amorphous Sediment Present /HPF Urine Bacteria Few /HPF (0-FEW) Urine Mucus Slight /LPF Medications Current Medications Sodium Chloride 500 ml @ 500 mls/hr 1X ONCE IV Last administered on 17:45; Start 01/16/17 at 15:45; Stop 01/16/17 at 16:44; Status DC Sodium Chloride 1,000 ml @ 125 mls/hr 1X ONCE IV Last administered on 18:48; Start 01/16/17 at 17:45; Stop 01/17/17 at 01:44; Status DC Ceftriaxone Sodium 1 gm/ Sodium Chloride 50 ml @ 100 mls/hr 1X ONCE IV ; Start 01/16/17 at 19:00; Stop 01/16/17 at 19:29; Status UNV Ceftriaxone Sodium 50 ml @ 100 mls/hr 1X ONCE IV Last administered on 19:32; Start 01/16/17 at 19:15; Stop 01/16/17 at 19:44; Status DC Aspirin (Children'S Aspirin) 324 mg 1X ONCE PO Last administered on 01/16/17 20:35; Start 01/16/17 at 20:30; Stop 01/16/17 at 20:31; Status DC Lisinopril (Prinivil) 20 mg DAILY PO Last administered on 01/17/17 08:43; Start 01/17/17 at 09:00 Aspirin (Estephania Aspirin) 325 mg DAILYWBKFT PO Last administered on 01/17/17 08: 38; Start 01/17/17 at 08:00 Clopidogrel Bisulfate (Plavix) 75 mg DAILYWBKFT PO Last administered on 08:38; Start 01/17/17 at 08:00 Lorazepam (Ativan) 1 mg 1X ONCE IV ; Start 01/17/17 at 01:00; Stop 01/17/17 at 01:00; Status DC Enoxaparin Sodium (Lovenox 40mg Syringe) 40 mg QHS SQ Last administered on 01/17 00:48; Start 01/17/17 at 01:00 Lorazepam (Ativan) 1 mg PRN 1X PRN IV ANXIETY / AGITATION; Start 01/17/17 at 01 :00 Iohexol (Omnipaque 300 Mg/ml) 75 ml 1X ONCE IV ; Start 01/17/17 at 09:45; Stop 01/17/17 at 09:46; Status DC Info (Do NOT chart on this entry -- for MONITORING) 1 each PRN DAILY PRN MC SEE COMMENTS; Start 01/17/17 at 09:45; Stop 01/19/17 at 09:44 Active Scripts Active Benazepril Hcl 20 Mg Tablet 1 Tab PO DAILY Reported Metformin Hcl 1,000 Mg Tablet 1 Tab PO BID Vitals/I & O Vital Sign - Last 24 Hours 01/16/17 01/16/17 01/16/17 01/16/17 15:31 15:59 16:13 16:50 Temp 98.4 98.4 Pulse 80 87 81 88 Resp 16 16 16 16 B/P (MAP) 126/71 (89) 166/78 (107) 150/84 (106) 147/82 (103) Pulse Ox 97 94 96 97 O2 Delivery Room Air Room Air Room Air Room Air 01/16/17 01/16/17 01/16/17 01/16/17 17:56 18:42 20:03 20:33 Pulse 82 83 90 82 Resp 16 14 18 16 B/P (MAP) 137/72 (93) 140/76 (97) 160/83 (108) 143/85 (104) Pulse Ox 100 98 98 98 O2 Delivery Room Air Room Air Room Air Room Air 01/16/17 01/16/17 01/17/17 01/17/17 21:40 21:40 03:00 07:00 Temp 97.9 99.9 98.4 97.9 99.9 98.4 Pulse 78 76 76 Resp 18 16 18 B/P (MAP) 145/85 (105) 124/71 (88) 130/71 (90) Pulse Ox 98 100 100 O2 Delivery Room Air Room Air Room Air Room Air 01/17/17 01/17/17 08:03 08:43 Pulse 76 B/P (MAP) 130/71 O2 Delivery Room Air Intake and Output 01/16/17 01/16/17 01/17/17 15:00 23:00 07:00 Intake Total 550 ml 100 ml Output Total 200 ml Balance 550 ml -100 ml SOLITARIO DOHERTY MD Jan 17, 2017 10:35
[2017-01-17 10:59] VITALS: BP 136/75
--- NOTE | 2017-01-17 11:59 | PDOC2 ---
NEUROLOGY CONSULT Date of Admission Date of Admission DATE: 01/17/17 TIME: 11:52 Reason for Consult Reason for Consult: Stroke symptoms Referring Physician Referring Physician: Dr. Curiel PCP: Dr. Lozoya Source Source: Chart review, Patient History of Present Illness History of Present Illness The patient is a 56-year-old right-handed female who does not think she needs to be here. She dropped off a family member at soccer practice and was noted to have some dysarthria and right facial drooping about 6 AM yesterday. Her daughter found out about it yesterday afternoon and brought her to the emergency department. Thus, the patient presented outside the tissue plasminogen activator window. 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 MRI showed bilateral pontine infarct. Lumbar puncture was negative for inflammatory disease. She did have some B12 deficiency. She went to [facility] where she made an excellent recovery. She gets around without assistive devices and lives with her son. There is no history of seizure or head injury. She also had a stroke in 2011. Past Medical History Cardiovascular: HTN, Hyperlipidemia CENTRAL NERVOUS SYSTEM: CVA Endocrine: Diabetes Past Surgical History Past Surgical History: Hysterectomy Family History Family History: CVA Social History Social History No alcohol or tobacco, lives with son Current Medications Current Medications Current Medications Sodium Chloride 500 ml @ 500 mls/hr 1X ONCE IV Last administered on 17:45; Start 01/16/17 at 15:45; Stop 01/16/17 at 16:44; Status DC Sodium Chloride 1,000 ml @ 125 mls/hr 1X ONCE IV Last administered on 18:48; Start 01/16/17 at 17:45; Stop 01/17/17 at 01:44; Status DC Ceftriaxone Sodium 1 gm/ Sodium Chloride 50 ml @ 100 mls/hr 1X ONCE IV ; Start 01/16/17 at 19:00; Stop 01/16/17 at 19:29; Status UNV Ceftriaxone Sodium 50 ml @ 100 mls/hr 1X ONCE IV Last administered on 19:32; Start 01/16/17 at 19:15; Stop 01/16/17 at 19:44; Status DC Aspirin (Children'S Aspirin) 324 mg 1X ONCE PO Last administered on 01/16/17 20:35; Start 01/16/17 at 20:30; Stop 01/16/17 at 20:31; Status DC Lisinopril (Prinivil) 20 mg DAILY PO Last administered on 01/17/17 08:43; Start 01/17/17 at 09:00 Aspirin (Estephania Aspirin) 325 mg DAILYWBKFT PO Last administered on 01/17/17 08: 38; Start 01/17/17 at 08:00 Clopidogrel Bisulfate (Plavix) 75 mg DAILYWBKFT PO Last administered on 08:38; Start 01/17/17 at 08:00 Lorazepam (Ativan) 1 mg 1X ONCE IV ; Start 01/17/17 at 01:00; Stop 01/17/17 at 01:00; Status DC Enoxaparin Sodium (Lovenox 40mg Syringe) 40 mg QHS SQ Last administered on 01/17 00:48; Start 01/17/17 at 01:00 Lorazepam (Ativan) 1 mg PRN 1X PRN IV ANXIETY / AGITATION; Start 01/17/17 at 01 :00 Iohexol (Omnipaque 300 Mg/ml) 75 ml 1X ONCE IV Last administered on 01/17/17 11:39; Start 01/17/17 at 09:45; Stop 01/17/17 at 09:46; Status DC Info (Do NOT chart on this entry -- for MONITORING) 1 each PRN DAILY PRN MC SEE COMMENTS; Start 01/17/17 at 09:45; Stop 01/19/17 at 09:44 Active Scripts Active Benazepril Hcl 20 Mg Tablet 1 Tab PO DAILY Reported Metformin Hcl 1,000 Mg Tablet 1 Tab PO BID Allergies Allergies: Coded Allergies: No Known Drug Allergies (Unverified , 02/04/15) ROS Review of System Negative for fevers, chills, weight loss, shortness of breath, chest pain, indigestion, hematochezia, melena, dysuria. Full 14-point review systems is negative. Physical Exam Physical Examination PHYSICAL EXAMINATION: Vital signs: see above. General appearance is normal and in no acute distress. HEENT: Normocephalic and nontraumatic. Eyes, nose, ears, and throat are unremarkable. Neck is supple. No lymphadenopathy. No bruits are heard over the carotid artery. No crepitus. NEUROLOGICAL EXAMINATION: Mental Status Examination: Alert. Oriented to time, place, and person. Answers questions and follows commends. Pupils are equal round and reactive to light and accommodation. Funduscopic exam: No papilledema. Extraocular movements are intact. Visual field exam shows no defect on the direct confrontation. No motor or sensory deficits on the facial exam. Uvula in the midline and the soft palate elevated symmetrically. No deviation of the tongue to any direction. Gross hearing is normal. Shoulder shrug normal. Muscle tone is normal. Muscle strength is 5-/5. Deep tendon reflexes are 1+ all around. Plantar reflex is with flexion response bilaterally. [id number] test performance is accurate. Tandem walk test is A little unsteady. Alternative movements are accurate. Romberg test is negative. Gait is just a little unsteady, normal for her. Sensory exam shows no deficits. No cerebellar signs are elicited. Vitals VITALS Vital Signs Date Time Temp Pulse Resp B/P (MAP) Pulse Ox O2 Delivery O2 Flow Rate FiO2 01/17/17 10:59 98.4 81 18 136/75 (95) 100 Room Air 98.4 Labs Labs Laboratory Tests Test 01/16/17 15:35 01/16/17 17:20 01/16/17 17:50 01/17/17 07:16 Glucose (Fingerstick) 79 mg/dL (70-99) 69 mg/dL (70-99) White Blood Count 3.6 x10^3/uL (4.0-11.0) Red Blood Count 3.85 x10^6/uL (3.50-5.40) Hemoglobin 11.8 g/dL (12.0-15.5) Hematocrit 35.3 % (36.0-47.0) Mean Corpuscular Volume 92 fL (79-100) Mean Corpuscular Hemoglobin 31 pg (25-35) Mean Corpuscular Hemoglobin Concent 34 g/dL (31-37) Red Cell Distribution Width 14.2 % (11.5-14.5) Platelet Count 245 x10^3/uL (140-400) Neutrophils (%) (Auto) 44 % (31-73) Lymphocytes (%) (Auto) 47 % (24-48) Monocytes (%) (Auto) 7 % (0-9) Eosinophils (%) (Auto) 1 % (0-3) Basophils (%) (Auto) 1 % (0-3) Neutrophils # (Auto) 1.6 x10^3uL (1.8-7.7) Lymphocytes # (Auto) 1.7 x10^3/uL (1.0-4.8) Monocytes # (Auto) 0.2 x10^3/uL (0.0-1.1) Eosinophils # (Auto) 0.0 x10^3/uL (0.0-0.7) Basophils # (Auto) 0.0 x10^3/uL (0.0-0.2) Sodium Level 141 mmol/L (136-145) Potassium Level 3.9 mmol/L (3.5-5.1) Chloride Level 104 mmol/L (98-107) Carbon Dioxide Level 28 mmol/L (21-32) Anion Gap 9 (6-14) Blood Urea Nitrogen 15 mg/dL (7-20) Creatinine 0.9 mg/dL (0.6-1.0) Estimated GFR (Cockcroft-Gault) 78.7 BUN/Creatinine Ratio 17 (6-20) Glucose Level 90 mg/dL (70-99) Calcium Level 9.0 mg/dL (8.5-10.1) Total Bilirubin 1.0 mg/dL (0.2-1.0) Aspartate Amino Transf (AST/SGOT) 13 U/L (15-37) Alanine Aminotransferase (ALT/SGPT) 12 U/L (14-59) Alkaline Phosphatase 60 U/L (46-116) Troponin I Quantitative < 0.017 ng/mL (0.000-0.055) Total Protein 7.5 g/dL (6.4-8.2) Albumin 3.9 g/dL (3.4-5.0) Albumin/Globulin Ratio 1.1 (1.0-1.7) Urine Color Yellow Urine Clarity Cloudy Urine pH 7.5 Urine Specific [place] 1.020 Urine Protein Negative mg/dL (NEG-TRACE) Urine Glucose (UA) Negative mg/dL (NEG) Urine Ketones (Stick) Negative mg/dL (NEG) Urine Blood Negative (NEG) Urine Nitrite Negative (NEG) Urine Bilirubin Negative (NEG) Urine Urobilinogen Dipstick 2.0 mg/dL (0.2 mg/dL) Urine Leukocyte Esterase Moderate (NEG) Urine RBC 0 /HPF (0-2) Urine WBC 11-20 /HPF (0-4) Urine Squamous Epithelial Cells Occ /LPF Urine Amorphous Sediment Present /HPF Urine Bacteria Few /HPF (0-FEW) Urine Mucus Slight /LPF Test 01/17/17 11:19 Glucose (Fingerstick) 96 mg/dL (70-99) Laboratory Tests Test 01/16/17 15:35 01/16/17 17:20 01/16/17 17:50 01/17/17 07:16 Glucose (Fingerstick) 79 mg/dL (70-99) 69 mg/dL (70-99) White Blood Count 3.6 x10^3/uL (4.0-11.0) Red Blood Count 3.85 x10^6/uL (3.50-5.40) Hemoglobin 11.8 g/dL (12.0-15.5) Hematocrit 35.3 % (36.0-47.0) Mean Corpuscular Volume 92 fL (79-100) Mean Corpuscular Hemoglobin 31 pg (25-35) Mean Corpuscular Hemoglobin Concent 34 g/dL (31-37) Red Cell Distribution Width 14.2 % (11.5-14.5) Platelet Count 245 x10^3/uL (140-400) Neutrophils (%) (Auto) 44 % (31-73) Lymphocytes (%) (Auto) 47 % (24-48) Monocytes (%) (Auto) 7 % (0-9) Eosinophils (%) (Auto) 1 % (0-3) Basophils (%) (Auto) 1 % (0-3) Neutrophils # (Auto) 1.6 x10^3uL (1.8-7.7) Lymphocytes # (Auto) 1.7 x10^3/uL (1.0-4.8) Monocytes # (Auto) 0.2 x10^3/uL (0.0-1.1) Eosinophils # (Auto) 0.0 x10^3/uL (0.0-0.7) Basophils # (Auto) 0.0 x10^3/uL (0.0-0.2) Sodium Level 141 mmol/L (136-145) Potassium Level 3.9 mmol/L (3.5-5.1) Chloride Level 104 mmol/L (98-107) Carbon Dioxide Level 28 mmol/L (21-32) Anion Gap 9 (6-14) Blood Urea Nitrogen 15 mg/dL (7-20) Creatinine 0.9 mg/dL (0.6-1.0) Estimated GFR (Cockcroft-Gault) 78.7 BUN/Creatinine Ratio 17 (6-20) Glucose Level 90 mg/dL (70-99) Calcium Level 9.0 mg/dL (8.5-10.1) Total Bilirubin 1.0 mg/dL (0.2-1.0) Aspartate Amino Transf (AST/SGOT) 13 U/L (15-37) Alanine Aminotransferase (ALT/SGPT) 12 U/L (14-59) Alkaline Phosphatase 60 U/L (46-116) Troponin I Quantitative < 0.017 ng/mL (0.000-0.055) Total Protein 7.5 g/dL (6.4-8.2) Albumin 3.9 g/dL (3.4-5.0) Albumin/Globulin Ratio 1.1 (1.0-1.7) Urine Color Yellow Urine Clarity Cloudy Urine pH 7.5 Urine Specific [place] 1.020 Urine Protein Negative mg/dL (NEG-TRACE) Urine Glucose (UA) Negative mg/dL (NEG) Urine Ketones (Stick) Negative mg/dL (NEG) Urine Blood Negative (NEG) Urine Nitrite Negative (NEG) Urine Bilirubin Negative (NEG) Urine Urobilinogen Dipstick 2.0 mg/dL (0.2 mg/dL) Urine Leukocyte Esterase Moderate (NEG) Urine RBC 0 /HPF (0-2) Urine WBC 11-20 /HPF (0-4) Urine Squamous Epithelial Cells Occ /LPF Urine Amorphous Sediment Present /HPF Urine Bacteria Few /HPF (0-FEW) Urine Mucus Slight /LPF Test 01/17/17 11:19 Glucose (Fingerstick) 96 mg/dL (70-99) Images Images CT head: Ventricles, sulci and basal cisterns are within normal limits. There is low attenuation in the left frontal. Ventricular white matter, right frontal periventricular white matter, right [place] radiata and right precentral gyrus compatible with remote infarcts. Focal low attenuation in the right basal ganglia is compatible with a lacunar infarct. Findings are not significantly changed since 02/02/2015. No significant loss of the thomason-white matter differentiation to suggest an acute or subacute infarct. There is no intracranial hemorrhage. No mass, mass effect or midline shift. Visualized orbits paranasal sinuses and mastoid air cells are normal. Scalp and calvarium are normal. No acute fracture. Impression: 1. Sequela of chronic infarcts are noted, as detailed above. 2. No evidence for acute or subacute ischemia by CT. This does not exclude acute/subacute ischemia. No acute intracranial hemorrhage. Assessment/Plan Assessment/Plan Impression: Transient ischemic attack, no sign of stroke now. The patient thinks that she is back to baseline. Prior brainstem strokes and multiple lacunar infarcts. Recommendations: The patient has had a lot of trouble with MRI studies in the past, she has severe claustrophobia and we had to give her general anesthesia last time. Therefore, I canceled the brain MRI Instead, I've ordered CT angiogram Agree with aspirin and Plavix, plan to continue the latter and discontinue the former after a few days. Rehabilitation screening Aim for discharge later today at the earliest. Thank you for letting me help with the patient's care. DANDRE HIGH MD Jan 17, 2017 11:59
--- NOTE | 2017-01-17 13:11 | RAD ---
CT angiography head and neck 01/17/2017 at 1139 hours Indication: TIA Comparison: CT head 01/16/2017, MRI brain 02/04/2015 Technique: Multiple axial CT images of the head and neck were obtained after the administration of intravenous contrast for evaluation of the arterial vasculature. MIP and 3D images of the [place] and neck vasculature are provided. 74 mL nonionic contrast was administered intravenously. Findings: Stable areas of hypoattenuation involving the left frontal periventricular white matter, right frontal periventricular white matter, right [place] radiata and precentral gyrus compatible with remote infarcts. Ventricles, sulci and basal cisterns are similar in appearance. There is no mass, mass effect or midline shift. No intracranial hemorrhage is identified. Visualized orbits, paranasal sinuses and mastoid air cells are normal. Soft tissues of the neck are normal. Visualized upper lungs are normal without evidence for suspicious pulmonary nodule or infiltrate. Mild degenerative disc changes are identified at C5-C6 and C6-C7. Vascular findings: Aortic arch is normal with patent origins of the brachiocephalic vessels. Normal 3 vessel arch is identified. Minor atherosclerotic calcification is identified at the carotid bifurcations without evidence for carotid stenosis. Origins of the vertebral arteries are normal. Cervical vertebral arteries are patent. There is atherosclerotic calcification involving the cavernous segments of the internal carotid arteries bilaterally without evidence for significant stenosis. Bilateral M1 segments and close regular artery branches appeared normal. Anterior cerebral arteries are normal with a 1 segments present bilaterally. A right posterior commuting artery is present which supplies the right posterior cerebral artery territory. Left P1 segment is present. Right P1 segment appears hypoplastic. No high-grade stenosis is identified involving the [place]. Right vertebral artery is dominant. Basilar artery appears patent with normal superior cerebellar branches identified. Bilateral posterior inferior cerebellar arteries are present. No suspicious aneurysm or vascular malformation is identified. Impression: 1. 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 2. No evidence for cervical carotid stenosis. 3. Normal evaluation of the [place] without evidence for high-grade stenosis, vascular malformation or aneurysm.
[2017-01-17 15:00] VITALS: BP 139/60
--- NOTE | 2017-01-17 17:22 | CARD ---
APPROVED REPORT EXAM: Two-dimensional and M-mode echocardiogram with Doppler, color Doppler with contrast. Other Information Quality : Average Rhythm : NSR INDICATION CVA/TIA Echo Enhancing Agent Indication: Rule Out Septal Defect Agent/Amount Used: Agitated Saline 8mL 2D DIMENSIONS RVDd2.8 (2.9-3.5cm)Left Atrium(2D)3.0 (1.6-4.0cm) IVSd1.2 (0.7-1.1cm)Aortic Root(2D)3.0 (2.0-3.7cm) LVDd4.4 (3.9-5.9cm)LVOT Diameter2.1 (1.8-2.4cm) PWd1.2 (0.7-1.1cm)LVDs2.5 (2.5-4.0cm) FS (%) 33.8 %SV65.3 ml LVEF(%)65.3 (>50%) Aortic Valve AoV Peak Eligio.111.7cm/sAoV VTI20.2cm AO Peak GR.5.0mmHgLVOT Peak Eligio.84.9cm/s LVOT VTI 17.31cmAO Mean GR.3mmHg [place] (VMAX)2.09gc7OLW (VTI)2.98cm2 Mitral Valve MV E Evxolerj13.2cm/sMV DECEL [id number] MV A Gnyyvfhf58.7cm/sMV AWP58lo E/A Ratio0.7MV A Jebkazyw533ud MVA (PHT)2.79cm2 TDI E/Lateral E'6.9E/Medial E'8.9 Pulmonary Valve PV Peak Fpwxyjol51.9cm/sPV Peak Grad.2mmHg Tricuspid Valve TR P. Mwfuvxmd482mf/sRAP GDGJZWLC6kyOq TR Peak Gr.95eaVeYSCU25ovVu Pulmonary Vein S1 Pbsuxoos48.8cm/sD2 Gyegmmzz95.3cm/s LEFT VENTRICLE The left ventricle is normal size. There is borderline concentric left ventricular hypertrophy. Left ventricle systolic function is normal. The Ejection Fraction is 60-65%. There is normal LV segmental wall motion. Tissue Doppler imaging reveals mild left ventricular diastolic dysfunction. Transmitral Doppler flow pattern is Grade I-abnormal relaxation pattern. There is no ventricular septal defect vi sualized. RIGHT VENTRICLE The right ventricle is normal size. The right ventricular systolic function is normal. ATRIA The left atrium size is normal. The right atrium size is normal. The interatrial septum is intact wit h no evidence for an atrial septal defect or patent foramen ovale as noted on 2-D or Doppler imaging. Injection of bubbles documented no interatrial shunt. AORTIC VALVE The aortic valve is normal in structure and function. The aortic valve is trileaflet. Doppler and Col or Flow revealed no significant aortic regurgitation. There is no significant aortic valvular stenosi s. MITRAL VALVE The mitral valve leaflets are thickened. There is no mitral valve stenosis. Doppler and Color Flow re vealed trace to mild mitral regurgitation. TRICUSPID VALVE The tricuspid valve leaflets are thickened , but open well. Doppler and Color Flow revealed mild tric uspid regurgitation. The PA pressure was estimated at 20 mmHg. There is no tricuspid valve stenosis. PULMONIC VALVE The pulmonic valve is not well visualized. Doppler and Color Flow revealed no pulmonic valvular regur gitation. There is no pulmonic valvular stenosis. GREAT VESSELS The aortic root is normal in size. The ascending aorta is normal in size. Normal pulmonary venous alberto w (Doppler). The IVC is normal in size and collapses >50% with inspiration. PERICARDIAL EFFUSION There is no evidence of significant pericardial effusion. Critical Notification Critical Value: No <Conclusion> The left ventricle is normal size. Left ventricle systolic function is normal. The Ejection Fraction is 60-65%. There is borderline concentric left ventricular hypertrophy. The interatrial septum is intact with no evidence for an atrial septal defect or patent foramen ovale as noted on 2-D or Doppler imaging. Injection of bubbles documented no interatrial shunt. There is no significant aortic valvular stenosis. Doppler and Color Flow revealed no significant aortic regurgitation. Doppler and Color Flow revealed trace to mild mitral regurgitation. Doppler and Color Flow revealed mild tricuspid regurgitation. The PA pressure was estimated at 20 mmHg.
[2017-01-17 19:00] VITALS: BP 139/71
[2017-01-17] MEDS ORDERED: AMLO10TA2 PO (19:48)
[2017-01-17 23:00] VITALS: BP 131/99
[2017-01-18 03:00] VITALS: BP 134/82
[2017-01-18 07:00] VITALS: BP 128/82
[2017-01-18] MEDS: CLOPIDOGREL BISULFATE 75 MG TABLET PO SCH (08:10)
[2017-01-18] MEDS: ASPIRIN 325 MG TABLET PO SCH (08:10)
[2017-01-18 08:11] VITALS: BP 128/82
[2017-01-18] MEDS: LISINOPRIL 20 MG TABLET PO SCH (08:11)
--- NOTE | 2017-01-18 10:00 | PDOC ---
PROGRESS NOTES Assessment Problems Medical Problems: (1) Acute CVA (cerebrovascular accident) Status: Acute (2) Urinary tract infection Status: Acute Transient ischemic attack, no sign of stroke now. The patient thinks that she is back to baseline.Perhaps symptoms were related to urinary tract infection. Severe claustrophobia making MRI with anesthesia more risky than just observation, which has been accomplished, and the patient is at her baseline Prior brainstem strokes and multiple lacunar infarcts. Negative CT angiogram Plan Aspirin and Plavix, discontinue aspirin after 4 days Okay for discharge today Follow-up with me as needed Subjective Feels fine, wants to go home Objective Vital Signs Date Time Temp Pulse Resp B/P (MAP) Pulse Ox O2 Delivery O2 Flow Rate FiO2 01/18/17 08:11 77 128/82 01/18/17 08:00 Room Air 01/18/17 07:00 98.0 18 100 98.0 Intake and Output 01/18/17 07:00 Intake Total 350 ml Output Total 800 ml Balance -450 ml Intake Oral 350 ml Output Urine Total 800 ml # Voids 1 PHYSICAL EXAM Alert. Oriented to time, place and person. PERRL. EOMI. CN: no focal findings. Muscle tone: normal. Muscle strength: 5/5 DTR: 1+ Plantar reflex: [ ] Gait: a little unsteady, baseline for her. Sensory exam: no abnormal findings. No cerebellar signs elicited. Review of Relevant I have reviewed the following items pranav (where applicable) has been applied. Labs Laboratory Tests Test 01/16/17 15:35 01/16/17 17:20 01/16/17 17:50 01/17/17 07:16 Glucose (Fingerstick) 79 mg/dL (70-99) 69 mg/dL (70-99) White Blood Count 3.6 x10^3/uL (4.0-11.0) Red Blood Count 3.85 x10^6/uL (3.50-5.40) Hemoglobin 11.8 g/dL (12.0-15.5) Hematocrit 35.3 % (36.0-47.0) Mean Corpuscular Volume 92 fL (79-100) Mean Corpuscular Hemoglobin 31 pg (25-35) Mean Corpuscular Hemoglobin Concent 34 g/dL (31-37) Red Cell Distribution Width 14.2 % (11.5-14.5) Platelet Count 245 x10^3/uL (140-400) Neutrophils (%) (Auto) 44 % (31-73) Lymphocytes (%) (Auto) 47 % (24-48) Monocytes (%) (Auto) 7 % (0-9) Eosinophils (%) (Auto) 1 % (0-3) Basophils (%) (Auto) 1 % (0-3) Neutrophils # (Auto) 1.6 x10^3uL (1.8-7.7) Lymphocytes # (Auto) 1.7 x10^3/uL (1.0-4.8) Monocytes # (Auto) 0.2 x10^3/uL (0.0-1.1) Eosinophils # (Auto) 0.0 x10^3/uL (0.0-0.7) Basophils # (Auto) 0.0 x10^3/uL (0.0-0.2) Sodium Level 141 mmol/L (136-145) Potassium Level 3.9 mmol/L (3.5-5.1) Chloride Level 104 mmol/L (98-107) Carbon Dioxide Level 28 mmol/L (21-32) Anion Gap 9 (6-14) Blood Urea Nitrogen 15 mg/dL (7-20) Creatinine 0.9 mg/dL (0.6-1.0) Estimated GFR (Cockcroft-Gault) 78.7 BUN/Creatinine Ratio 17 (6-20) Glucose Level 90 mg/dL (70-99) Calcium Level 9.0 mg/dL (8.5-10.1) Total Bilirubin 1.0 mg/dL (0.2-1.0) Aspartate Amino Transf (AST/SGOT) 13 U/L (15-37) Alanine Aminotransferase (ALT/SGPT) 12 U/L (14-59) Alkaline Phosphatase 60 U/L (46-116) Troponin I Quantitative < 0.017 ng/mL (0.000-0.055) Total Protein 7.5 g/dL (6.4-8.2) Albumin 3.9 g/dL (3.4-5.0) Albumin/Globulin Ratio 1.1 (1.0-1.7) Urine Color Yellow Urine Clarity Cloudy Urine pH 7.5 Urine Specific [place] 1.020 Urine Protein Negative mg/dL (NEG-TRACE) Urine Glucose (UA) Negative mg/dL (NEG) Urine Ketones (Stick) Negative mg/dL (NEG) Urine Blood Negative (NEG) Urine Nitrite Negative (NEG) Urine Bilirubin Negative (NEG) Urine Urobilinogen Dipstick 2.0 mg/dL (0.2 mg/dL) Urine Leukocyte Esterase Moderate (NEG) Urine RBC 0 /HPF (0-2) Urine WBC 11-20 /HPF (0-4) Urine Squamous Epithelial Cells Occ /LPF Urine Amorphous Sediment Present /HPF Urine Bacteria Few /HPF (0-FEW) Urine Mucus Slight /LPF Test 01/17/17 11:19 01/17/17 16:54 01/17/17 20:39 01/18/17 07:12 Glucose (Fingerstick) 96 mg/dL (70-99) 92 mg/dL (70-99) 90 mg/dL (70-99) 85 mg/dL (70-99) Laboratory Tests Test 01/17/17 11:19 01/17/17 16:54 01/17/17 20:39 01/18/17 07:12 Glucose (Fingerstick) 96 mg/dL (70-99) 92 mg/dL (70-99) 90 mg/dL (70-99) 85 mg/dL (70-99) Medications Current Medications Sodium Chloride 500 ml @ 500 mls/hr 1X ONCE IV Last administered on 17:45; Start 01/16/17 at 15:45; Stop 01/16/17 at 16:44; Status DC Sodium Chloride 1,000 ml @ 125 mls/hr 1X ONCE IV Last administered on 18:48; Start 01/16/17 at 17:45; Stop 01/17/17 at 01:44; Status DC Ceftriaxone Sodium 1 gm/ Sodium Chloride 50 ml @ 100 mls/hr 1X ONCE IV ; Start 01/16/17 at 19:00; Stop 01/16/17 at 19:29; Status UNV Ceftriaxone Sodium 50 ml @ 100 mls/hr 1X ONCE IV Last administered on 19:32; Start 01/16/17 at 19:15; Stop 01/16/17 at 19:44; Status DC Aspirin (Children'S Aspirin) 324 mg 1X ONCE PO Last administered on 01/16/17 20:35; Start 01/16/17 at 20:30; Stop 01/16/17 at 20:31; Status DC Lisinopril (Prinivil) 20 mg DAILY PO Last administered on 01/18/17 08:11; Start 01/17/17 at 09:00 Aspirin (Estephania Aspirin) 325 mg DAILYWBKFT PO Last administered on 01/18/17 08: 10; Start 01/17/17 at 08:00 Clopidogrel Bisulfate (Plavix) 75 mg DAILYWBKFT PO Last administered on 08:10; Start 01/17/17 at 08:00 Lorazepam (Ativan) 1 mg 1X ONCE IV ; Start 01/17/17 at 01:00; Stop 01/17/17 at 01:00; Status DC Enoxaparin Sodium (Lovenox 40mg Syringe) 40 mg QHS SQ Last administered on 01/17 21:02; Start 01/17/17 at 01:00 Lorazepam (Ativan) 1 mg PRN 1X PRN IV ANXIETY / AGITATION; Start 01/17/17 at 01 :00 Iohexol (Omnipaque 300 Mg/ml) 75 ml 1X ONCE IV Last administered on 01/17/17 11:39; Start 01/17/17 at 09:45; Stop 01/17/17 at 09:46; Status DC Info (Do NOT chart on this entry -- for MONITORING) 1 each PRN DAILY PRN MC SEE COMMENTS; Start 01/17/17 at 09:45; Stop 01/19/17 at 09:44 Active Scripts Active Benazepril Hcl 20 Mg Tablet 1 Tab PO DAILY Reported Amlodipine Besylate 10 Mg Tablet 10 Mg PO DAILY Metformin Hcl 1,000 Mg Tablet 1 Tab PO BID Vitals/I & O Vital Sign - Last 24 Hours 01/17/17 01/17/17 01/17/17 01/17/17 10:59 15:00 19:00 20:00 Temp 98.4 98.5 97.8 98.4 98.5 97.8 Pulse 81 78 77 Resp 18 18 20 B/P (MAP) 136/75 (95) 139/60 (86) 139/71 (93) Pulse Ox 100 100 100 O2 Delivery Room Air Room Air Room Air Room Air 01/17/17 01/18/17 01/18/17 7/12/17 23:00 03:00 07:00 08:00 Temp 98.4 98.0 98.0 98.4 98.0 98.0 Pulse 64 70 77 Resp 20 20 18 B/P (MAP) 131/99 (110) 134/82 (99) 128/82 (97) Pulse Ox 96 100 100 O2 Delivery Room Air Room Air Room Air Room Air 01/18/17 08:11 Pulse 77 B/P (MAP) 128/82 Intake and Output 01/17/17 01/17/17 01/18/17 15:00 23:00 07:00 Intake Total 350 ml Output Total 400 ml 400 ml Balance -50 ml -[address] angiogram: Findings: Stable areas of hypoattenuation involving the left frontal periventricular white matter, right frontal periventricular white matter, right [place] radiata and precentral gyrus compatible with remote infarcts. Ventricles, sulci and basal cisterns are similar in appearance. There is no mass, mass effect or midline shift. No intracranial hemorrhage is identified. Visualized orbits, paranasal sinuses and mastoid air cells are normal. Soft tissues of the neck are normal. Visualized upper lungs are normal without evidence for suspicious pulmonary nodule or infiltrate. Mild degenerative disc changes are identified at C5-C6 and C6-C7. Vascular findings: Aortic arch is normal with patent origins of the brachiocephalic vessels. Normal 3 vessel arch is identified. Minor atherosclerotic calcification is identified at the carotid bifurcations without evidence for carotid stenosis. Origins of the vertebral arteries are normal. Cervical vertebral arteries are patent. There is atherosclerotic calcification involving the cavernous segments of the internal carotid arteries bilaterally without evidence for significant stenosis. Bilateral M1 segments and close regular artery branches appeared normal. Anterior cerebral arteries are normal with a 1 segments present bilaterally. A right posterior commuting artery is present which supplies the right posterior cerebral artery territory. Left P1 segment is present. Right P1 segment appears hypoplastic. No high-grade stenosis is identified involving the [place]. Right vertebral artery is dominant. Basilar artery appears patent with normal superior cerebellar branches identified. Bilateral posterior inferior cerebellar arteries are present. No suspicious aneurysm or vascular malformation is identified. Impression: 1. 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 2. No evidence for cervical carotid stenosis. 3. Normal evaluation of the [place] of [place] without evidence for high-grade stenosis, vascular malformation or aneurysm. DANDRE HIGH MD Jan 18, 2017 10:00
[2017-01-18] MEDS ORDERED: CLOP75TA PO (11:11)
--- NOTE | 2017-01-18 11:15 | PDOC3 ---
Discharge Summary* Date of Discharge: Jan 18, 2017 Admitting Diagnosis Problems: Final Diagnosis 1. CVA symptoms, possible TIA #2 hypertension #3 history of CVA. Brief hospital course: A 56-year-old -[place] female patient with prior history of hypertension and a CVA presenting to the ER with complaints of weakness, given her past history, she was admitted to the hospital for a further evaluation. She had a CTA of the head which did not show any acute or CVA also patient had an echocardiogram showed normal LV ejection fraction without any wall motion abnormalities. She has been placed and the Plavix recommended to continue Plavix and follow up with primary care doctor and risks benefits and alternatives explained to patient and daughter. Physical exam Gen. alert oriented 3 Heart S1-S2 present Lungs anterior chest. Abdomen soft nontender no organomegaly extremities no edema Discharge disposition home Discharge condition stable Discharge diet cardiac Discharge follow-up with primary care doctor in 1-4 weeks Total time spent for discharge is 35 minutes for patient education counseling and coordination of care. Brief Hospital Course Ms. Roper is a 56 old [sex] who presented with [ ] Scheduled Amlodipine Besylate (Amlodipine Besylate), 10 MG PO DAILY, (Reported) Benazepril Hcl (Benazepril Hcl), 1 TAB PO DAILY Metformin Hcl (Metformin Hcl), 1 TAB PO BID, (Reported) Time Spent Total time spent with patient [ 35] minutes for coordination of care, counseling , and education. SOLITARIO DOHERTY MD Jan 18, 2017 11:15
== END 2017-01-18 12:35 | disposition home or self-care (01) | DRG 69 ==
LOC: ER 15:02 → 6 SOUTH 20:05
PROVIDERS: ADMIT Internal Medicine Hematology & Oncology; ATTEND Internal Medicine Hematology & Oncology
DX: G45.9 Transient cerebral ischemic attack, unspecified (principal); N39.0 Urinary tract infection, site not specified; E11.9 Type 2 diabetes mellitus without complications; E53.8 Deficiency of other specified B group vitamins; E78.5 Hyperlipidemia, unspecified; F40.240 Claustrophobia; I10 Essential (primary) hypertension; Z82.3 Family history of stroke; Z90.710 Acquired absence of both cervix and uterus
CPT/HCPCS: 99285; C8929; 36415; 70450; 70496; 70498; 71010; 80053; 81001; 82962; 84484; 85027; 87086; 93005; 96361; 96365; A6539; J0690; J1650; J7030; J7040; Q9967; 92610

== ENCOUNTER 2017-09-08 14:38 | Outpatient (CLI) | payer OTHER ==
[2017-09-08] MEDS: IV RINGERS,LACTATED 1000ML 1,000 ML IV (07:00)
[~2017-09-08 14:38] MED LIST changes: -AMLO1CAP PO; -BENA20TA2 PO; -GLIP10TA13 PO; +HYDROmorphone 2 MG/ML VIAL IV; +LIDOCAINE 1% PF 2 ML VIAL. ID; -METF-620 PO; +MIDAZOLAM HCL/PF 2 MG/2 ML VIAL.; +MORPHINE SULFATE 4 MG/ML DISP.SYRIN. IV; +ONDANSETRON PF 4 MG/2 ML VIAL. IV; +PROCHLORPERAZINE 10 MG/2 ML VIAL. IV; -SULF1TAB24 PO; +fentaNYL PF VIAL 100 MCG/2 ML VIAL IV
== END 2017-09-08 15:48 | disposition home or self-care (01) ==
LOC: MRI 14:38
DX: I63.50 Cerebral infarction due to unspecified occlusion or stenosis of unspecified cerebral artery (principal); G37.9 Demyelinating disease of central nervous system, unspecified
CPT/HCPCS: 70551; J2250

== ENCOUNTER 2018-01-23 06:53 | Emergency (ER) | payer OTHER ==
[2018-01-23 08:01] LABS: BILIRUBIN,URINE NEGATIVE (NEG); CLARITY,URINE CLEAR; COLOR,URINE YELLOW; GLUCOSE,URINE NEGATIVE (NEG); NITRITE,URINE NEGATIVE (NEG); PROTEIN,URINE NEGATIVE (NEG-TRACE)
[2018-01-23 08:09] LABS: SQUAMOUS EPITHELIAL CELL,UR FEW /LPF
[2018-01-23 08:10] LABS: AMORPHOUS SEDIMENT,UR PRESENT /HPF; BACTERIA,URINE FEW /HPF (0-FEW)
[2018-01-23] MEDS: NITROFURANTOIN MONOHYD/M-CRYST 100 MG CAPSULE. PO (08:55)
== END 2018-01-23 08:57 | disposition home or self-care (01) ==
LOC: ER 06:53
DX: R33.9 Retention of urine, unspecified (principal); R32 Unspecified urinary incontinence; I10 Essential (primary) hypertension; E11.9 Type 2 diabetes mellitus without complications; Z87.440 Personal history of urinary (tract) infections; Z86.73 Personal history of transient ischemic attack (TIA), and cerebral infarction without residual deficits
CPT/HCPCS: 81001; 99284; 99285

== ENCOUNTER 2018-02-13 13:29 | Emergency (ER) | payer OTHER ==
[2018-02-13 14:14] LABS: BILIRUBIN,URINE NEGATIVE (NEG); CLARITY,URINE TURBID; COLOR,URINE YELLOW; GLUCOSE,URINE NEGATIVE (NEG); NITRITE,URINE NEGATIVE (NEG); PROTEIN,URINE 30 mg/dL (NEG-TRACE); UROBILINOGEN,URINE 0.2 mg/dL (0.2 mg/dL)
[2018-02-13 14:22] LABS: BACTERIA,URINE MANY /HPF (0-FEW); WBC,URINE >40 /HPF (0-4)
[2018-02-13 14:23] LABS: RBC,URINE FOBS /HPF (0-2)
[2018-02-13 15:59] LABS: POC GLUCOSE 75 mg/dL (70-99)
== END 2018-02-13 15:26 | disposition home or self-care (01) ==
LOC: ER 13:29
DX: N39.0 Urinary tract infection, site not specified (principal); I10 Essential (primary) hypertension; E11.9 Type 2 diabetes mellitus without complications; Z86.73 Personal history of transient ischemic attack (TIA), and cerebral infarction without residual deficits; Z90.710 Acquired absence of both cervix and uterus
CPT/HCPCS: 81001; 82962; 87086; 99284

== ENCOUNTER 2018-03-07 09:47 | Emergency (ER) | payer OTHER ==
[~2018-03-07] VITALS: Ht 157.5 cm; Wt 79.4 kg
[~2018-03-07 09:47] MED LIST changes: +AMLO10TA2 PO; +AMLO1CAP PO; +BENA20TA4 PO; +CEPH-264 PO; +CLOP75TA PO; +GLIP10TA13 PO; -HYDROmorphone 2 MG/ML VIAL IV; -LIDOCAINE 1% PF 2 ML VIAL. ID; +METF10003 PO; -MIDAZOLAM HCL/PF 2 MG/2 ML VIAL.; -MORPHINE SULFATE 4 MG/ML DISP.SYRIN. IV; +NITR100C62 PO; -ONDANSETRON PF 4 MG/2 ML VIAL. IV; -PROCHLORPERAZINE 10 MG/2 ML VIAL. IV; +SULF1TAB24 PO; -fentaNYL PF VIAL 100 MCG/2 ML VIAL IV
--- NOTE | 2018-03-07 10:23 | PHYS DOC ---
Past Medical History Past Medical History: CVA, Diabetes-Type II, Hypertension Past Surgical History: Hysterectomy Alcohol Use: None Drug Use: None Adult General Chief Complaint Chief Complaint: FEMALE UROGENTIAL PROBLEMS HPI HPI Patient is a 57 year old female with history of hypertension, diabetes type 2, CVA with right-sided weakness, hysterectomy, who presents today complaining of urinary retention. Patient states for the last 1 week she feels when she voids her blood and never empties all the way. She states she feels she is retaining some urine. She states sometimes she has stress incontinence. She is also complaining of slight lower back pain for week. She states roughly 3 weeks ago she was diagnosed with UTI and was treated with cephalexin. Patient denies any fever, denies any nausea vomiting. Review of Systems Review of Systems Constitutional: Denies fever or chills [] Eyes: Denies change in visual acuity, redness, or eye pain [] HENT: Denies nasal congestion or sore throat [] Respiratory: Denies cough or shortness of breath [] Cardiovascular: No additional information not addressed in HPI [] GI: Denies abdominal pain, nausea, vomiting, bloody stools or diarrhea [] : Reports urinary retention. Denies dysuria or hematuria [] Musculoskeletal: Denies back pain or joint pain [] Integument: Denies rash or skin lesions [] Neurologic: Denies headache, focal weakness or sensory changes [] All other systems were reviewed and found to be within normal limits, except as documented in this note. Current Medications Current Medications Current Medications Medications (Trade) Dose Ordered Sig/[facility] Start Time Stop Time Status Last Admin Dose Admin Ciprofloxacin/ Dextrose 200 ml @ 200 mls/hr ONCE ONCE 03/07/18 11:15 03/07/18 12:10 DC Allergies Allergies Allergies Coded Allergies Type Severity Reaction Last Updated Verified No Known Drug Allergies 09/08/17 No Physical Exam Physical Exam Constitutional: Well developed, well nourished, no acute distress, non-toxic appearance. [] HENT: Normocephalic, atraumatic, bilateral external ears normal, oropharynx moist, no oral exudates, nose normal. [] Eyes: PERRLA, EOMI, conjunctiva normal, no discharge. [] Neck: Normal range of motion, no tenderness, supple, no stridor. [] Cardiovascular:Heart rate regular rhythm, no murmur [] Lungs & Thorax: Bilateral breath sounds clear to auscultation [] Abdomen: Bowel sounds normal, soft, no tenderness, no masses, no pulsatile masses. [] Skin: Warm, dry, no erythema, no rash. [] Back: No tenderness, no CVA tenderness. [] Extremities: No tenderness, no cyanosis, no clubbing, ROM intact, no edema. [] Neurologic: Alert and oriented X 3, normal motor function, normal sensory function, no focal deficits noted. Slight right-sided facial droop noted. Psychologic: Flat affect, slow to response which is normal for her due to CVA. Current Patient Data Vital Signs Vital Signs Date Time Temp Pulse Resp B/P (MAP) Pulse Ox O2 Delivery O2 Flow Rate FiO2 03/07/18 11:47 80 21 173/84 (113) 99 Room Air 03/07/18 10:00 98.5 98.5 Lab Values Laboratory Tests Test 03/07/18 10:25 03/07/18 10:36 Urine Collection Type Void Urine Color Yellow Urine Clarity Cloudy Urine pH 6.0 Urine Specific [place] 1.020 Urine Protein Negative mg/dL (NEG-TRACE) Urine Glucose (UA) Negative mg/dL (NEG) Urine Ketones (Stick) Trace mg/dL (NEG) Urine Blood Moderate (NEG) Urine Nitrite Positive (NEG) Urine Bilirubin Negative (NEG) Urine Urobilinogen Dipstick 1.0 mg/dL (0.2 mg/dL) Urine Leukocyte Esterase Large (NEG) Urine RBC 0 /HPF (0-2) Urine WBC >40 /HPF (0-4) Urine Squamous Epithelial Cells Mod /LPF Urine Bacteria Moderate /HPF (0-FEW) White Blood Count 3.7 x10^3/uL (4.0-11.0) L Red Blood Count 4.23 x10^6/uL (3.50-5.40) Hemoglobin 12.9 g/dL (12.0-15.5) Hematocrit 38.2 % (36.0-47.0) Mean Corpuscular Volume 90 fL (79-100) Mean Corpuscular Hemoglobin 31 pg (25-35) Mean Corpuscular Hemoglobin Concent 34 g/dL (31-37) Red Cell Distribution Width 13.9 % (11.5-14.5) Platelet Count 279 x10^3/uL (140-400) Neutrophils (%) (Auto) 56 % (31-73) Lymphocytes (%) (Auto) 37 % (24-48) Monocytes (%) (Auto) 6 % (0-9) Eosinophils (%) (Auto) 1 % (0-3) Basophils (%) (Auto) 1 % (0-3) Neutrophils # (Auto) 2.1 x10^3uL (1.8-7.7) Lymphocytes # (Auto) 1.4 x10^3/uL (1.0-4.8) Monocytes # (Auto) 0.2 x10^3/uL (0.0-1.1) Eosinophils # (Auto) 0.0 x10^3/uL (0.0-0.7) Basophils # (Auto) 0.0 x10^3/uL (0.0-0.2) Sodium Level 140 mmol/L (136-145) Potassium Level 4.0 mmol/L (3.5-5.1) Chloride Level 104 mmol/L (98-107) Carbon Dioxide Level 29 mmol/L (21-32) Anion Gap 7 (6-14) Blood Urea Nitrogen 13 mg/dL (7-20) Creatinine 1.1 mg/dL (0.6-1.0) H Estimated GFR (Cockcroft-Gault) 62.2 BUN/Creatinine Ratio 12 (6-20) Glucose Level 104 mg/dL (70-99) H Calcium Level 9.0 mg/dL (8.5-10.1) Total Bilirubin 0.6 mg/dL (0.2-1.0) Aspartate Amino Transferase (AST) 14 U/L (15-37) L Alanine Aminotransferase (ALT) 19 U/L (14-59) Alkaline Phosphatase 81 U/L (46-116) Total Protein 8.0 g/dL (6.4-8.2) Albumin 3.8 g/dL (3.4-5.0) Albumin/Globulin Ratio 0.9 (1.0-1.7) L Laboratory Tests 03/07/18 10:36 Laboratory Tests 03/07/18 10:36 EKG EKG [] Radiology/Procedures Radiology/Procedures [] Course & Med Decision Making Course & Med Decision Making Pertinent Labs and Imaging studies reviewed. (See chart for details) This is a 57-year-old female patient presenting to the ED today complaining of urinary retention, slight low back pain and stress incontinence. On arrival to the ED BVI was 156 cc. CBC CMP with no acute findings. Urine analysis is noted for UTI with nitrates and leukocytes. This was a straight cath urine collection. It does appear contaminated as well. Considering her symptoms I will put this patient on Cipro. I requested this patient follow-up with the PCP after 7 day treatment with Cipro and have another urine analysis done to make sure the infection is cleared out. Patient was instructed to push fluids. Also given prescription for Flomax for 7 days. Staff Physician Addendum: I was working in the ER during the course of this patient's visit. I was available for consultation as needed, but I was not directly involved in the care of this patient. Dragon Disclaimer Dragon Disclaimer This electronic medical record was generated, in whole or in part, using a voice recognition dictation system. Departure Departure Impression: Primary Impression: Urinary tract infection Additional Impression: Stress incontinence Disposition: 01 HOME, SELF-CARE Condition: STABLE Referrals: LIVE ACOSTA MD (PCP) follow up in one week Patient Instructions: Urinary Tract Infection Additional Instructions: You were evaluated in the emergency room and noted to have urinary tract infection, ensure you complete your antibiotics. Follow-up with your doctor in one week. Scripts Tamsulosin Hcl (FLOMAX) 0.4 Mg Cap.er.24h 1 CAP PO DAILY, #7 CAP 0 Refills Prov: JHOANA MIRANDA APRN 03/07/18 Ciprofloxacin Hcl (CIPRO) 500 Mg Tablet 1 TAB PO BID, #14 TAB Prov: JHOANA MIRANDA APRN 03/07/18 Problem Qualifiers Primary Impression: Urinary tract infection Urinary tract infection type: site unspecified Hematuria presence: without hematuria Qualified Codes: N39.0 - Urinary tract infection, site not specified JHOANA MIRANDA APRN Mar 07, 2018 10:23 JONATHAN ERIC MD Mar 07, 2018 16:23
[2018-03-07 10:39] LABS: BILIRUBIN,URINE NEGATIVE (NEG); CLARITY,URINE CLOUDY; COLOR,URINE YELLOW; NITRITE,URINE POSITIVE (NEG); PROTEIN,URINE NEGATIVE (NEG-TRACE)
[2018-03-07 10:52] LABS: SQUAMOUS EPITHELIAL CELL,UR MOD /LPF
[2018-03-07 10:53] LABS: WBC,URINE >40 /HPF (0-4)
[2018-03-07 10:54] LABS: BACTERIA,URINE MODERATE /HPF (0-FEW); RBC,URINE 0 /HPF (0-2)
[2018-03-07 11:01] LABS: CREATININE 1.1 mg/dL (0.6-1.0); GFR 62.2
[2018-03-07 11:07] LABS: ALBUMIN 3.8 g/dL (3.4-5.0); ALBUMIN/GLOBULIN RATIO 0.9 (1.0-1.7); TOTAL BILIRUBIN 0.6 mg/dL (0.2-1.0)
[2018-03-07 11:15] LABS: BASO % 1 % (0-3); EOS % 1 % (0-3); HEMATOCRIT 38.2 % (36.0-47.0); HEMOGLOBIN 12.9 g/dL (12.0-15.5); LYMPH # 1.4 x10^3/uL (1.0-4.8); LYMPH % 37 % (24-48); MEAN CORPUSCULAR HEMOGLOBIN 31 pg (25-35); MEAN CORPUSCULAR HGB CONC 34 g/dL (31-37); MEAN CORPUSCULAR VOLUME 90 fL (79-100); MONO # 0.2 x10^3/uL (0.0-1.1); MONO % 6 % (0-9); NEUT # 2.1 x10^3uL (1.8-7.7); NEUT % 56 % (31-73); PLATELET COUNT 279 x10^3/uL (140-400); RED BLOOD COUNT 4.23 x10^6/uL (3.50-5.40); RED CELL DISTRIBUTION WIDTH 13.9 % (11.5-14.5); WHITE BLOOD COUNT 3.7 x10^3/uL (4.0-11.0)
[2018-03-07] MEDS ORDERED: CIPROFLOXACIN 400MG PREMIX 200 ML IV ONE (11:15)
[2018-03-07] MEDS ORDERED: CIPR500T94 PO (11:31)
[2018-03-07] MEDS ORDERED: TAMS0.4C97 PO (11:31)
[2018-03-07 11:47] VITALS: BP 173/84
[2018-03-07] MEDS ORDERED: CIPROFLOXACIN 400MG PREMIX 200 ML IV SCH (21:00)
== END 2018-03-07 11:55 | disposition home or self-care (01) ==
LOC: ER 09:47
DX: N39.0 Urinary tract infection, site not specified (principal); N39.3 Stress incontinence (female) (male); I10 Essential (primary) hypertension; E11.9 Type 2 diabetes mellitus without complications; Z90.710 Acquired absence of both cervix and uterus; Z86.73 Personal history of transient ischemic attack (TIA), and cerebral infarction without residual deficits
CPT/HCPCS: 36415; 51701; 80053; 81001; 85025; 87086; 99284-25

== ENCOUNTER 2018-04-13 11:35 | Emergency (ER) | payer OTHER ==
[~2018-04-13] VITALS: Ht 157.5 cm; Wt 79.4 kg
[~2018-04-13 11:35] MED LIST changes: -AMLO10TA2 PO; +AMLO10TA6 PO; +CIPR500T94 PO; -METF10003 PO; +METF10007 PO; +TAMS0.4C97 PO
--- NOTE | 2018-04-13 12:11 | PHYS DOC ---
Past Medical History Past Medical History: CVA, Diabetes-Type II, Hypertension Past Surgical History: Hysterectomy Alcohol Use: None Drug Use: None Adult General Chief Complaint Chief Complaint: URINARY RETENTION HPI HPI Patient is a 57 year old AA female who presents to the emergency Department today with complaints of difficulty voiding today. Patient states that approximately 9:30 this morning she last urinated and had a "time emptying her bladder. She denies any hematuria, dysuria, increased urinary frequency, or fever. She reports right-sided flank pain that is a constant sensation. Patient currently reports that her pain as 1 out of 10 on the pain scale. She also denies any nausea, vomiting, diarrhea, cough, shortness of breath, or chest pain. She states she has had a previous stroke with right-sided residuals and mild right-sided facial drooping. Review of Systems Review of Systems Constitutional: Denies fever or chills [] Respiratory: Denies cough or shortness of breath [] Cardiovascular: No additional information not addressed in HPI [] GI: Denies abdominal pain, nausea, vomiting, or diarrhea [] : Denies dysuria or hematuria; reports R flank pain and difficulty urinating today [] Musculoskeletal: Denies back pain or joint pain [] Integument: Denies rash or skin lesions [] Neurologic: Denies headache, focal weakness or sensory changes [] All other systems were reviewed and found to be within normal limits, except as documented in this note. Allergies Allergies Allergies Coded Allergies Type Severity Reaction Last Updated Verified No Known Drug Allergies 09/08/17 No Physical Exam Physical Exam Constitutional: Well developed, well nourished, no acute distress, non-toxic appearance. [] HENT: Normocephalic, atraumatic, bilateral external ears normal, nose normal; mild R facial droop- chronic [] Eyes: PERRLA, conjunctiva normal, no discharge. [] Neck: Normal range of motion, no tenderness, supple, no stridor. [] Cardiovascular:Heart rate regular rhythm, no murmur [] Lungs & Thorax: Bilateral breath sounds clear to auscultation [] Abdomen: Bowel sounds normal, soft, no tenderness, no masses, no pulsatile masses. [] Skin: Warm, dry, no erythema, no rash. [] Back: No tenderness, no CVA tenderness. [] Extremities: No cyanosis, no clubbing, no edema, R sided residual weakness Neurologic: Alert and oriented X 3, normal motor function, normal sensory function, no focal deficits noted. [] Psychologic: Affect normal, judgement normal, mood normal. [] Current Patient Data Vital Signs Vital Signs Date Time Temp Pulse Resp B/P (MAP) Pulse Ox O2 Delivery O2 Flow Rate FiO2 04/13/18 15:00 70 97 04/13/18 11:58 97.8 16 186/90 (122) Room Air 97.8 Lab Values Laboratory Tests Test 04/13/18 12:36 04/13/18 14:12 White Blood Count 2.6 x10^3/uL (4.0-11.0) L Red Blood Count 4.18 x10^6/uL (3.50-5.40) Hemoglobin 12.8 g/dL (12.0-15.5) Hematocrit 37.5 % (36.0-47.0) Mean Corpuscular Volume 90 fL (79-100) Mean Corpuscular Hemoglobin 31 pg (25-35) Mean Corpuscular Hemoglobin Concent 34 g/dL (31-37) Red Cell Distribution Width 14.2 % (11.5-14.5) Platelet Count 268 x10^3/uL (140-400) Neutrophils (%) (Auto) 45 % (31-73) Lymphocytes (%) (Auto) 46 % (24-48) Monocytes (%) (Auto) 6 % (0-9) Eosinophils (%) (Auto) 1 % (0-3) Basophils (%) (Auto) 1 % (0-3) Neutrophils # (Auto) 1.2 x10^3uL (1.8-7.7) L Lymphocytes # (Auto) 1.2 x10^3/uL (1.0-4.8) Monocytes # (Auto) 0.2 x10^3/uL (0.0-1.1) Eosinophils # (Auto) 0.0 x10^3/uL (0.0-0.7) Basophils # (Auto) 0.0 x10^3/uL (0.0-0.2) Sodium Level 144 mmol/L (136-145) Potassium Level 4.2 mmol/L (3.5-5.1) Chloride Level 105 mmol/L (98-107) Carbon Dioxide Level 30 mmol/L (21-32) Anion Gap 9 (6-14) Blood Urea Nitrogen 10 mg/dL (7-20) Creatinine 1.1 mg/dL (0.6-1.0) H Estimated GFR (Cockcroft-Gault) 62.2 BUN/Creatinine Ratio 9 (6-20) Glucose Level 93 mg/dL (70-99) Calcium Level 9.1 mg/dL (8.5-10.1) Total Bilirubin 0.8 mg/dL (0.2-1.0) Aspartate Amino Transferase (AST) 14 U/L (15-37) L Alanine Aminotransferase (ALT) 20 U/L (14-59) Alkaline Phosphatase 77 U/L (46-116) C-Reactive Protein, Quantitative 1.2 mg/L (0-3.3) Total Protein 8.1 g/dL (6.4-8.2) Albumin 3.8 g/dL (3.4-5.0) Albumin/Globulin Ratio 0.9 (1.0-1.7) L Urine Collection Type U cath Urine Color Yellow Urine Clarity Clear Urine pH 6.5 Urine Specific [place] 1.020 Urine Protein Negative mg/dL (NEG-TRACE) Urine Glucose (UA) Negative mg/dL (NEG) Urine Ketones (Stick) Trace mg/dL (NEG) Urine Blood Negative (NEG) Urine Nitrite Negative (NEG) Urine Bilirubin Negative (NEG) Urine Urobilinogen Dipstick 1.0 mg/dL (0.2 mg/dL) Urine Leukocyte Esterase Moderate (NEG) Urine RBC 0 /HPF (0-2) Urine WBC 5-10 /HPF (0-4) Urine Squamous Epithelial Cells Few /LPF Urine Bacteria Many /HPF (0-FEW) Urine Mucus Mod /LPF Laboratory Tests 04/13/18 12:36 Laboratory Tests 04/13/18 12:36 EKG EKG [] Radiology/Procedures Radiology/Procedures [] Course & Med Decision Making Course & Med Decision Making Pertinent Labs and Imaging studies reviewed. (See chart for details) dx: urinary tract infection Labs not concerning for renal failure, bladder scan revealed complete emptying of bladder with voiding. Prescription written for cephalexin 500 mg PO bid x5 days. Increase clear fluids. PT encouraged to take her blood pressure medication upon arrival to home, she had reported that she forgot to take her medications this morning. Patient verbalized an understanding of home care, medications, follow-up, and return to ED instructions and was in agreement with the plan of care. [] Dragon Disclaimer Dragon Disclaimer This electronic medical record was generated, in whole or in part, using a voice recognition dictation system. Departure Departure Impression: Primary Impression: Urinary tract infection Disposition: HOME, SELF-CARE Condition: STABLE Referrals: LIVE ACOSTA MD (PCP) Patient Instructions: Urinary Tract Infection, [id number] Additional Instructions: Fill prescription and use as directed. Increase clear fluids, Follow up with your doctor next week. Return to the ER if symptoms worsen. Scripts Cephalexin (CEPHALEXIN) 500 Mg Capsule 1 CAP PO BID for 5 Days, #10 CAP Prov: ANN MAURER APRN 04/13/18 Attending Signature Attending Signature I have reviewed the PA/APPLIED ANTHROPOLOGIST's note and plan of care. I was available for consultation as needed during the patient's visit in the emergency department. I agree with the clinical impression, plan, and disposition. Problem Qualifiers Primary Impression: Urinary tract infection Urinary tract infection type: site unspecified Hematuria presence: without hematuria Qualified Codes: N39.0 - Urinary tract infection, site not specified ANN MAURER APRN Apr 13, 2018 12:11 ROBERTO MAYORGA DO Apr 16, 2018 03:08
[2018-04-13 12:53] LABS: CALCIUM 9.1 mg/dL (8.5-10.1); CREATININE 1.1 mg/dL (0.6-1.0); GFR 62.2; POTASSIUM 4.2 mmol/L (3.5-5.1)
[2018-04-13 12:59] LABS: ALBUMIN 3.8 g/dL (3.4-5.0); ALBUMIN/GLOBULIN RATIO 0.9 (1.0-1.7); C-REACTIVE PROTEIN 1.2 mg/L (0-3.3); TOTAL BILIRUBIN 0.8 mg/dL (0.2-1.0); TOTAL PROTEIN 8.1 g/dL (6.4-8.2)
[2018-04-13 13:42] LABS: BASO % 1 % (0-3); EOS % 1 % (0-3); HEMATOCRIT 37.5 % (36.0-47.0); HEMOGLOBIN 12.8 g/dL (12.0-15.5); LYMPH # 1.2 x10^3/uL (1.0-4.8); LYMPH % 46 % (24-48); MEAN CORPUSCULAR HEMOGLOBIN 31 pg (25-35); MEAN CORPUSCULAR HGB CONC 34 g/dL (31-37); MEAN CORPUSCULAR VOLUME 90 fL (79-100); MONO # 0.2 x10^3/uL (0.0-1.1); MONO % 6 % (0-9); NEUT # 1.2 x10^3uL (1.8-7.7); NEUT % 45 % (31-73); PLATELET COUNT 268 x10^3/uL (140-400); RED BLOOD COUNT 4.18 x10^6/uL (3.50-5.40); RED CELL DISTRIBUTION WIDTH 14.2 % (11.5-14.5); WHITE BLOOD COUNT 2.6 x10^3/uL (4.0-11.0)
[2018-04-13 14:24] LABS: BILIRUBIN,URINE NEGATIVE (NEG); CLARITY,URINE CLEAR; COLOR,URINE YELLOW; NITRITE,URINE NEGATIVE (NEG); PH,URINE 6.5; PROTEIN,URINE NEGATIVE (NEG-TRACE)
[2018-04-13 14:35] LABS: BACTERIA,URINE MANY /HPF (0-FEW); SQUAMOUS EPITHELIAL CELL,UR FEW /LPF
[2018-04-13 14:36] LABS: RBC,URINE 0 /HPF (0-2)
[2018-04-13 15:00] VITALS: BP 206/96
[2018-04-13] MEDS ORDERED: CEPH500C PO (15:27)
== END 2018-04-13 16:27 | disposition home or self-care (01) ==
LOC: ER 11:35
DX: N39.0 Urinary tract infection, site not specified (principal); R29.810 Facial weakness; I10 Essential (primary) hypertension; E11.9 Type 2 diabetes mellitus without complications; Z86.73 Personal history of transient ischemic attack (TIA), and cerebral infarction without residual deficits; Z90.710 Acquired absence of both cervix and uterus
CPT/HCPCS: 36415; 80053; 81001; 85025; 86140; 99285

== ENCOUNTER 2018-08-05 11:14 | Inpatient (IN) | payer MEDICARE, OTHER ==
[~2018-08-05] VITALS: Ht 157.5 cm; Wt 78.0 kg
[2018-08-05] VITALS (20 sets, daily range): BP systolic 119–207; BP diastolic 68–119
[~2018-08-05 11:14] MED LIST changes: +CEPH500C PO
--- NOTE | 2018-08-05 11:29 | PHYS DOC ---
Past Medical History Past Medical History: CVA, Diabetes-Type II, Hypertension Past Surgical History: Hysterectomy Alcohol Use: None Drug Use: None Adult General HPI HPI Patient is a 57-year-old female who presents via EMS with report of left-sided weakness. Patient's last known well was yesterday. Patient at some point had fallen out of the bed during the night and had called a family member and ultimately family member had arrived and called for EMS. Patient has a history of CVAs in the past. Medics indicate that they had noted a left-sided facial droop as well as decreased use of her left arm. Review of Systems Review of Systems Constitutional: Denies fever or chills [] Respiratory: Denies cough or shortness of breath [] Cardiovascular: No additional information not addressed in HPI [] GI: Denies abdominal pain, nausea, vomiting, bloody stools or diarrhea [] : Denies dysuria or hematuria [] Musculoskeletal: Denies back pain or joint pain [] Integument: Denies rash or skin lesions [] Neurologic: Denies headache. Complains of left-sided weakness [] All other systems were reviewed and found to be within normal limits, except as documented in this note. Current Medications Current Medications Current Medications Medications (Trade) Dose Ordered Sig/Amirah Start Time Stop Time Status Last Admin Dose Admin Fentanyl Citrate (Fentanyl 2ml Vial) 50 mcg PRN Q1HR PRN 08/05/18 13:15 08/06/18 13:14 Labetalol HCl (Normodyne Iv Push) 10 mg 1X ONCE 08/05/18 12:15 08/05/18 12:16 DC 08/05/18 12:20 10 MG Nicardipine HCl 50 mg/Sodium Chloride 250 ml @ 25 mls/hr CONT PRN 08/05/18 13:00 Ondansetron HCl (Zofran) 4 mg PRN Q8HRS PRN 08/05/18 13:15 08/06/18 13:14 Allergies Allergies Allergies Coded Allergies Type Severity Reaction Last Updated Verified No Known Drug Allergies 09/08/17 No Physical Exam Physical Exam Constitutional: Well developed, well nourished, no acute distress, non-toxic appearance. [] HENT: Normocephalic, atraumatic, bilateral external ears normal, oropharynx moist, no oral exudates, nose normal. [] Eyes: PERRLA, EOMI, conjunctiva normal, no discharge. [] Neck: Normal range of motion, no tenderness, supple, no stridor. [] Cardiovascular: Regular rate and rhythm [] Lungs & Thorax: Bilateral breath sounds clear to auscultation [] Abdomen: Bowel sounds normal, soft, no tenderness. [] Skin: Warm, dry, no erythema, no rash. [] Extremities: No tenderness, no cyanosis, no clubbing, ROM intact, no edema. [] Neurologic: Awake and alert. There is left-sided facial droop. Field Marketing Director strengths are equal bilaterally. There is a left-sided pronator drift. [] Current Patient Data Vital Signs Vital Signs Date Time Temp Pulse Resp B/P (MAP) Pulse Ox O2 Delivery O2 Flow Rate FiO2 08/05/18 12:20 106 193/91 08/05/18 11:14 98.6 20 99 Room Air 98.6 Lab Values Laboratory Tests Test 08/05/18 11:22 08/05/18 11:25 08/05/18 12:50 Glucose (Fingerstick) 113 mg/dL (70-99) H White Blood Count 2.9 x10^3/uL (4.0-11.0) L Red Blood Count 4.59 x10^6/uL (3.50-5.40) Hemoglobin 13.3 g/dL (12.0-15.5) Hematocrit 40.9 % (36.0-47.0) Mean Corpuscular Volume 89 fL (79-100) Mean Corpuscular Hemoglobin 29 pg (25-35) Mean Corpuscular Hemoglobin Concent 32 g/dL (31-37) Red Cell Distribution Width 14.5 % (11.5-14.5) Platelet Count 247 x10^3/uL (140-400) Neutrophils (%) (Auto) 53 % (31-73) Lymphocytes (%) (Auto) 39 % (24-48) Monocytes (%) (Auto) 7 % (0-9) Eosinophils (%) (Auto) 1 % (0-3) Basophils (%) (Auto) 1 % (0-3) Neutrophils # (Auto) 1.5 x10^3uL (1.8-7.7) L Lymphocytes # (Auto) 1.1 x10^3/uL (1.0-4.8) Monocytes # (Auto) 0.2 x10^3/uL (0.0-1.1) Eosinophils # (Auto) 0.0 x10^3/uL (0.0-0.7) Basophils # (Auto) 0.0 x10^3/uL (0.0-0.2) Sodium Level 140 mmol/L (136-145) Potassium Level 4.1 mmol/L (3.5-5.1) Chloride Level 105 mmol/L (98-107) Carbon Dioxide Level 28 mmol/L (21-32) Anion Gap 7 (6-14) Blood Urea Nitrogen 15 mg/dL (7-20) Creatinine 0.9 mg/dL (0.6-1.0) Estimated GFR (Cockcroft-Gault) 78.4 BUN/Creatinine Ratio 17 (6-20) Glucose Level 114 mg/dL (70-99) H Calcium Level 9.0 mg/dL (8.5-10.1) Magnesium Level 1.7 mg/dL (1.8-2.4) L Total Bilirubin 0.6 mg/dL (0.2-1.0) Aspartate Amino Transferase (AST) 18 U/L (15-37) Alanine Aminotransferase (ALT) 32 U/L (14-59) Alkaline Phosphatase 96 U/L (46-116) Troponin I Quantitative < 0.017 ng/mL (0.000-0.055) Total Protein 7.9 g/dL (6.4-8.2) Albumin 4.0 g/dL (3.4-5.0) Albumin/Globulin Ratio 1.0 (1.0-1.7) Urine Collection Type U cath Urine Color Yellow Urine Clarity Clear Urine pH 7.0 Urine Specific [place] 1.010 Urine Protein Negative mg/dL (NEG-TRACE) Urine Glucose (UA) Negative mg/dL (NEG) Urine Ketones (Stick) Negative mg/dL (NEG) Urine Blood Negative (NEG) Urine Nitrite Negative (NEG) Urine Bilirubin Negative (NEG) Urine Urobilinogen Dipstick 0.2 mg/dL (0.2 mg/dL) Urine Leukocyte Esterase Trace (NEG) Urine RBC 0 /HPF (0-2) Urine WBC 1-4 /HPF (0-4) Urine Bacteria Many /HPF (0-FEW) Laboratory Tests 08/05/18 11:25 Laboratory Tests 08/05/18 11:25 EKG EKG [] Radiology/Procedures Radiology/Procedures [] Course & Med Decision Making Course & Med Decision Making Pertinent Labs and Imaging studies reviewed. (See chart for details) [] Dragon Disclaimer Dragon Disclaimer This electronic medical record was generated, in whole or in part, using a voice recognition dictation system. Departure Departure Impression: Primary Impression: Acute spont intraparenchymal hemorrhage assoc w/ hypertension Disposition: ADMITTED INPATIENT Admitting Physician: Tanya Knox Condition: GUARDED Referrals: TANYA KNOX MD (PCP) TRINA GILES Jr. DO Aug 05, 2018 11:29
[2018-08-05 11:41] LABS: BASO % 1 % (0-3); EOS % 1 % (0-3); HEMATOCRIT 40.9 % (36.0-47.0); HEMOGLOBIN 13.3 g/dL (12.0-15.5); LYMPH # 1.1 x10^3/uL (1.0-4.8); LYMPH % 39 % (24-48); MEAN CORPUSCULAR HEMOGLOBIN 29 pg (25-35); MEAN CORPUSCULAR HGB CONC 32 g/dL (31-37); MEAN CORPUSCULAR VOLUME 89 fL (79-100); MONO # 0.2 x10^3/uL (0.0-1.1); MONO % 7 % (0-9); NEUT # 1.5 x10^3uL (1.8-7.7); NEUT % 53 % (31-73); PLATELET COUNT 247 x10^3/uL (140-400); RED BLOOD COUNT 4.59 x10^6/uL (3.50-5.40); RED CELL DISTRIBUTION WIDTH 14.5 % (11.5-14.5); WHITE BLOOD COUNT 2.9 x10^3/uL (4.0-11.0)
[2018-08-05 11:56] LABS: CREATININE 0.9 mg/dL (0.6-1.0); GFR 78.4; POTASSIUM 4.1 mmol/L (3.5-5.1)
[2018-08-05 12:02] LABS: MAGNESIUM 1.7 mg/dL (1.8-2.4); TOTAL BILIRUBIN 0.6 mg/dL (0.2-1.0); TOTAL PROTEIN 7.9 g/dL (6.4-8.2)
--- NOTE | 2018-08-05 12:06 | RAD ---
CT HEAD WO CONTRAST Clinical indications: left sided weakness COMPARISON: January 16, 2017. Technique: Noncontrast axial cross sectional scanning of the head was performed. PQRS compliance Statement One or more of the following individualized dose reduction techniques were utilized for this study: 1. Automated exposure control 2. Adjustment of the mA and/or kV according to patient size 3. Use of iterative reconstruction technique Findings: There is a new finding of a 16mm acute hyperdense intraparenchymal hemorrhage within the right thalamus. Again seen is moderate bilateral periventricular white matter hypodensities consistent with chronic small vessel ischemic disease. No sulci effacement is evident. No midline shift or significant mass effect is evident. No extra-axial fluid collection is seen. No skull fracture or pneumocephalus is seen. No opacification of the mastoid sinuses or the paranasal sinuses is seen. The maxillary sinuses are not completely seen in this study. Impression: 16mm acute hyperdense intraparenchymal hemorrhage within the right thalamus. Note-this critical result was called to the emergency room physician at 11:59 AM on August 05, 2018. Electronically signed by: Brian Murrell MD (08/05/2018 12:01 PM) [facility]
[2018-08-05] MEDS ORDERED: LABETALOL 20 MG/4 ML DISP.SYRIN. IVP ONE (12:15)
--- NOTE | 2018-08-05 12:29 | RAD ---
PORTABLE CHEST 1V Clinical indications: FALL FROM BED, altered mental status COMPARISON: January 16, 2017. Findings: No acute lung infiltrate or pleural effusion or pulmonary edema or lung mass or pneumothorax is seen. The heart size, pulmonary vasculature, mediastinum and both javier are unremarkable. Impression: No acute radiographic abnormality is seen. Electronically signed by: Brian Murrell MD (08/05/2018 12:25 PM) [facility] [place]
[2018-08-05 13:05] LABS: BILIRUBIN,URINE NEGATIVE (NEG); CLARITY,URINE CLEAR; COLOR,URINE YELLOW; NITRITE,URINE NEGATIVE (NEG); PROTEIN,URINE NEGATIVE (NEG-TRACE); UROBILINOGEN,URINE 0.2 mg/dL (0.2 mg/dL)
[2018-08-05 13:10] LABS: BACTERIA,URINE MANY /HPF (0-FEW); RBC,URINE 0 /HPF (0-2)
[2018-08-05] MEDS ORDERED: fentaNYL PF VIAL 100 MCG/2 ML VIAL IV PRN (13:15)
[2018-08-05] MEDS ORDERED: ONDANSETRON PF 4 MG/2 ML VIAL. IV PRN (13:15)
[2018-08-05] MEDS: niCARdipine 50 MG in IV NORMAL SALINE 250ML 250 ML IV PRN (13:30)
--- NOTE | 2018-08-05 15:00 | NUR ---
Patient admit to room [address] showed 16mm hyperdense intraparenchymal hemorrhage. Failed swallow study in ED, patient NPO. NIH score of 10 in ED, on admit to ICU NIH scored 5 with left sided weakness, left facial droop, and slurred speech. Patient on cardene drip with orders to keep SBP 140-160. Dr Knox notified of admit with orders for maintenance IV fluids. Family at bedside. Will continue to monitor.
--- NOTE | 2018-08-05 15:11 | EKG ---
[facility] [address] [place] [address] Test Date: 2018-08-05 Test Time: 11:21:24 Pat Name: JAMES VIEYRA Department: Room: 115 1 Gender: F [employer]: : 1960 Requested By: TRINA GILES Order Number: [id number] Reading MD: Chai Johnson Measurements Intervals [place] Rate: 87 P: 0 MI: 138 QRS: -22 QRSD: 86 T: 52 QT: 356 QTc: 434 Interpretive Statements SINUS RHYTHM LEFTWARD AXIS CONSIDER LEFT VENTRICULAR HYPERTROPHY QRS(T) CONTOUR ABNORMALITY CONSIDER ANTEROSEPTAL MYOCARDIAL DAMAGE POSSIBLY ABNORMAL ECG Electronically Signed On 08-09-2018 10:01:10 [employer] [employer] by Chai Johnson
[2018-08-05] MEDS ORDERED: ASPI-630 PO (15:44)
[2018-08-05] MEDS ORDERED: AMLO5TAB7 PO (15:46)
[2018-08-05] MEDS ORDERED: BENA40TA3 PO (15:47)
[2018-08-05] MEDS ORDERED: IOHEXOL 350 MG/ML 100 ML VIAL. IV ONE (16:30)
[2018-08-05] MEDS ORDERED: CONTRAST GIVEN. MC PRN (16:30)
--- NOTE | 2018-08-05 17:02 | RAD ---
Head and neck CTA with and without contrast and 3-D reconstruction: Clinical indications: Left-sided weakness. Code stroke. COMPARISON: CTA dated January 17, 2017. Technique: Noncontrast axial localizer was performed. Following IV infusion of 75 cc of Omnipaque 350, helical CT scanning of the neck and head was performed. Axial and coronal and sagittal 2-D MIP reconstructions were generated and reviewed on a computer monitor. Using a MIP algorithm, a 3-D reconstructed angiogram was generated and reviewed on a computer monitor. PQRS compliance Statement One or more of the following individualized dose reduction techniques were utilized for this study: 1. Automated exposure control 2. Adjustment of the mA and/or kV according to patient size 3. Use of iterative reconstruction technique The measurements were performed using the NASCET criteria. Neck CTA Findings: No occlusive disease is seen. No thromboembolism is evident. The right vertebral artery is dominant. No soft tissue mass or enlarged cervical lymphadenopathy is seen. Head CTA Findings: The left vertebral artery ends in PICA which is a normal anatomical variant. No aneurysm is seen involving the [place]. 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 This is unchanged from the prior study. The right posterior cerebral artery is fed by a patent right posterior communicating artery which is a normal anatomical variant. No occlusive disease is seen otherwise. No thromboembolism is identified. No arteriovenous malformation is evident. No intracranial contrast enhancing lesion is seen. Impression: No occlusive disease is seen. No thromboembolism is seen. 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 Electronically signed by: Brian Murrell MD (08/05/2018 4:57 PM) [facility]
[2018-08-05] MEDS: POTASSIUM CL 40MEQ D5-0.45NACL 1,000 ML IV SCH (17:21)
--- NOTE | 2018-08-05 18:39 | PDOC2 ---
CONSULT Date of Consult Date of Consult DATE: 08/05/18 TIME: 18:34 Identification/Chief Complaint Chief Complaint left Side weakness History of Present Illness Reason for Visit: This patient is 57-year-old woman with past medical history of CVA, hypertension information obtained from patient's family at bedside. Patient presented to emergency room with complaint of left-sided weakness patient had elevated blood pressures on presentation. Patient was having facial numbness, weakness on the left side. CT scan done in the emergency room showed intraparenchymal hemorrhage in right thalamus. Past Medical History Cardiovascular: HTN, Hyperlipidemia CENTRAL NERVOUS SYSTEM: CVA Endocrine: Diabetes Past Surgical History Past Surgical History: Hysterectomy Social History ALCOHOL: none Drugs: None Current Problem List Problem List Problems Medical Problems: (1) Acute spont intraparenchymal hemorrhage assoc w/ hypertension Status: Acute Current Medications Current Medications Current Medications Labetalol HCl (Normodyne Iv Push) 10 mg 1X ONCE IVP Last administered on at 12:20; Start 08/05/18 at 12:15; Stop 08/05/18 at 12:16; Status DC Nicardipine HCl 50 mg/Sodium Chloride 250 ml @ 25 mls/hr CONT PRN IV SEE I/O RECORD Last administered on 08/05/18at 13:30; Start 08/05/18 at 13:00 Ondansetron HCl (Zofran) 4 mg PRN Q8HRS PRN IV NAUSEA/VOMITING; Start 08/05/18 at 13:15; Stop 08/06/18 at 13:14 Fentanyl Citrate (Fentanyl 2ml Vial) 50 mcg PRN Q1HR PRN IV PAIN; Start at 13:15; Stop 08/06/18 at 13:14 Atorvastatin Calcium (Lipitor) 20 mg QHS PO ; Start 08/05/18 at 21:00 Iohexol (Omnipaque 350 Mg/ml) 75 ml 1X ONCE IV Last administered on 08/05/18at 16:30; Start 08/05/18 at 16:30; Stop 08/05/18 at 16:31; Status DC Info (CONTRAST GIVEN -- Rx MONITORING) 1 each PRN DAILY PRN MC SEE COMMENTS; Start 08/05/18 at 16:30; Stop 08/07/18 at 16:29 Potassium Chloride/Dextrose/ Sod Cl 1,000 ml @ 75 mls/hr [id number] IV Last administered on 08/05/18at 17:21; Start 08/05/18 at 17:30 Active Scripts Active Benazepril Hcl 40 Mg Tablet 1 Tab PO DAILY 30 Days Amlodipine Besylate 5 Mg Tablet 5 Mg PO DAILY 30 Days Aspirin 81 Mg Tab.chew 1 Tab PO DAILY Flomax (Tamsulosin Hcl) 0.4 Mg Cap.er.24h 1 Cap PO DAILY Allergies Allergies: Coded Allergies: No Known Drug Allergies (Unverified , 09/08/17) Physical Exam Physical Exam General no acute distress. HEENT: Normocephalic and atraumatic. NECK: Supple without bruit Respiratory: Clear to auscultation bilaterally Heart: Regular rate and rhythm, S1S2 normal NEUROLOGIC: Mental status able to tell is name, place , month, Able to follow simple commands. Cranial nerve equally reactive pupils, and intact extraocular movements. + facial asymmetry. Palate elevates and tongue protrudes in midline. Reflexes are 1+ with flexor plantar responses. Coordination no dysmetria on right side Strength able to move exts on right good strength left side weakness Sensory exam is intact for light touch and pinprickon right decreased to left side. Gait in bed. Vitals VITALS Vital Signs Date Time Temp Pulse Resp B/P (MAP) Pulse Ox O2 Delivery O2 Flow Rate FiO2 08/05/18 17:45 86 143/77 (99) 08/05/18 17:30 16 99 Room Air 08/05/18 16:00 97.7 97.7 Labs Labs Laboratory Tests Test 08/05/18 11:22 08/05/18 11:25 08/05/18 12:50 08/05/18 17:21 Glucose (Fingerstick) 113 mg/dL (70-99) 96 mg/dL (70-99) White Blood Count 2.9 x10^3/uL (4.0-11.0) Red Blood Count 4.59 x10^6/uL (3.50-5.40) Hemoglobin 13.3 g/dL (12.0-15.5) Hematocrit 40.9 % (36.0-47.0) Mean Corpuscular Volume 89 fL (79-100) Mean Corpuscular Hemoglobin 29 pg (25-35) Mean Corpuscular Hemoglobin Concent 32 g/dL (31-37) Red Cell Distribution Width 14.5 % (11.5-14.5) Platelet Count 247 x10^3/uL (140-400) Neutrophils (%) (Auto) 53 % (31-73) Lymphocytes (%) (Auto) 39 % (24-48) Monocytes (%) (Auto) 7 % (0-9) Eosinophils (%) (Auto) 1 % (0-3) Basophils (%) (Auto) 1 % (0-3) Neutrophils # (Auto) 1.5 x10^3uL (1.8-7.7) Lymphocytes # (Auto) 1.1 x10^3/uL (1.0-4.8) Monocytes # (Auto) 0.2 x10^3/uL (0.0-1.1) Eosinophils # (Auto) 0.0 x10^3/uL (0.0-0.7) Basophils # (Auto) 0.0 x10^3/uL (0.0-0.2) Sodium Level 140 mmol/L (136-145) Potassium Level 4.1 mmol/L (3.5-5.1) Chloride Level 105 mmol/L (98-107) Carbon Dioxide Level 28 mmol/L (21-32) Anion Gap 7 (6-14) Blood Urea Nitrogen 15 mg/dL (7-20) Creatinine 0.9 mg/dL (0.6-1.0) Estimated GFR (Cockcroft-Gault) 78.4 BUN/Creatinine Ratio 17 (6-20) Glucose Level 114 mg/dL (70-99) Calcium Level 9.0 mg/dL (8.5-10.1) Magnesium Level 1.7 mg/dL (1.8-2.4) Total Bilirubin 0.6 mg/dL (0.2-1.0) Aspartate Amino Transf (AST/SGOT) 18 U/L (15-37) Alanine Aminotransferase (ALT/SGPT) 32 U/L (14-59) Alkaline Phosphatase 96 U/L (46-116) Troponin I Quantitative < 0.017 ng/mL (0.000-0.055) Total Protein 7.9 g/dL (6.4-8.2) Albumin 4.0 g/dL (3.4-5.0) Albumin/Globulin Ratio 1.0 (1.0-1.7) Triglycerides Level 31 mg/dL (0-150) Cholesterol Level 196 mg/dL (0-200) LDL Cholesterol, Calculated 124 mg/dL (0-100) VLDL Cholesterol, Calculated 6 mg/dL (0-40) Non-HDL Cholesterol Calculated 130 mg/dL (0-129) HDL Cholesterol 66 mg/dL (40-60) Cholesterol/HDL Ratio 3.0 Urine Collection Type U cath Urine Color Yellow Urine Clarity Clear Urine pH 7.0 Urine Specific [employer] 1.010 Urine Protein Negative mg/dL (NEG-TRACE) Urine Glucose (UA) Negative mg/dL (NEG) Urine Ketones (Stick) Negative mg/dL (NEG) Urine Blood Negative (NEG) Urine Nitrite Negative (NEG) Urine Bilirubin Negative (NEG) Urine Urobilinogen Dipstick 0.2 mg/dL (0.2 mg/dL) Urine Leukocyte Esterase Trace (NEG) Urine RBC 0 /HPF (0-2) Urine WBC 1-4 /HPF (0-4) Urine Bacteria Many /HPF (0-FEW) Laboratory Tests Test 08/05/18 11:22 08/05/18 11:25 08/05/18 12:50 08/05/18 17:21 Glucose (Fingerstick) 113 mg/dL (70-99) 96 mg/dL (70-99) White Blood Count 2.9 x10^3/uL (4.0-11.0) Red Blood Count 4.59 x10^6/uL (3.50-5.40) Hemoglobin 13.3 g/dL (12.0-15.5) Hematocrit 40.9 % (36.0-47.0) Mean Corpuscular Volume 89 fL (79-100) Mean Corpuscular Hemoglobin 29 pg (25-35) Mean Corpuscular Hemoglobin Concent 32 g/dL (31-37) Red Cell Distribution Width 14.5 % (11.5-14.5) Platelet Count 247 x10^3/uL (140-400) Neutrophils (%) (Auto) 53 % (31-73) Lymphocytes (%) (Auto) 39 % (24-48) Monocytes (%) (Auto) 7 % (0-9) Eosinophils (%) (Auto) 1 % (0-3) Basophils (%) (Auto) 1 % (0-3) Neutrophils # (Auto) 1.5 x10^3uL (1.8-7.7) Lymphocytes # (Auto) 1.1 x10^3/uL (1.0-4.8) Monocytes # (Auto) 0.2 x10^3/uL (0.0-1.1) Eosinophils # (Auto) 0.0 x10^3/uL (0.0-0.7) Basophils # (Auto) 0.0 x10^3/uL (0.0-0.2) Sodium Level 140 mmol/L (136-145) Potassium Level 4.1 mmol/L (3.5-5.1) Chloride Level 105 mmol/L (98-107) Carbon Dioxide Level 28 mmol/L (21-32) Anion Gap 7 (6-14) Blood Urea Nitrogen 15 mg/dL (7-20) Creatinine 0.9 mg/dL (0.6-1.0) Estimated GFR (Cockcroft-Gault) 78.4 BUN/Creatinine Ratio 17 (6-20) Glucose Level 114 mg/dL (70-99) Calcium Level 9.0 mg/dL (8.5-10.1) Magnesium Level 1.7 mg/dL (1.8-2.4) Total Bilirubin 0.6 mg/dL (0.2-1.0) Aspartate Amino Transf (AST/SGOT) 18 U/L (15-37) Alanine Aminotransferase (ALT/SGPT) 32 U/L (14-59) Alkaline Phosphatase 96 U/L (46-116) Troponin I Quantitative < 0.017 ng/mL (0.000-0.055) Total Protein 7.9 g/dL (6.4-8.2) Albumin 4.0 g/dL (3.4-5.0) Albumin/Globulin Ratio 1.0 (1.0-1.7) Triglycerides Level 31 mg/dL (0-150) Cholesterol Level 196 mg/dL (0-200) LDL Cholesterol, Calculated 124 mg/dL (0-100) VLDL Cholesterol, Calculated 6 mg/dL (0-40) Non-HDL Cholesterol Calculated 130 mg/dL (0-129) HDL Cholesterol 66 mg/dL (40-60) Cholesterol/HDL Ratio 3.0 Urine Collection Type U cath Urine Color Yellow Urine Clarity Clear Urine pH 7.0 Urine Specific [employer] 1.010 Urine Protein Negative mg/dL (NEG-TRACE) Urine Glucose (UA) Negative mg/dL (NEG) Urine Ketones (Stick) Negative mg/dL (NEG) Urine Blood Negative (NEG) Urine Nitrite Negative (NEG) Urine Bilirubin Negative (NEG) Urine Urobilinogen Dipstick 0.2 mg/dL (0.2 mg/dL) Urine Leukocyte Esterase Trace (NEG) Urine RBC 0 /HPF (0-2) Urine WBC 1-4 /HPF (0-4) Urine Bacteria Many /HPF (0-FEW) Assessment/Plan Assessment/Plan This patient is 57-year-old woman with past medical history of CVA, hypertension information obtained from patient's family at bedside. Patient presented to emergency room with complaint of left-sided weakness patient had elevated blood pressures on presentation. Patient was having facial numbness, weakness on the left side. CT scan done in the emergency room showed intraparenchymal hemorrhage in right thalamus. 57-year-old woman with past medical history of CVA, hypertension presented with left-sided weakness. Patient had a CT scan done on the brain showing 16 mm intraparenchymal hemorrhage in right thalamus. Changes noted for chronic small vessel ischemic disease. Neurosurgery recommendations appreciated. Patient is requiring IV for elevated blood pressures. Patient is being monitored in ICU closely. Goal systolic blood pressure 140-160. Will get CTA head and neck to evaluate for any acute etiology, aneurysm. Check 2-D echo. Lipid profile, start statin, PT OT speech evaluation. Continue medical management. Plan discussed with patient and patient's family in detail. VINNIE SPRING MD Aug 05, 2018 18:39
[2018-08-05] MEDS: ATORVASTATIN CALCIUM 20 MG TABLET PO SCH (21:00)
[2018-08-06] VITALS (19 sets, daily range): BP systolic 115–181; BP diastolic 59–102
[2018-08-06] MEDS: POTASSIUM CL 40MEQ D5-0.45NACL 1,000 ML IV SCH (06:38)
[2018-08-06] MEDS: niCARdipine 50 MG in IV NORMAL SALINE 250ML 250 ML IV PRN (07:40)
[2018-08-06] MEDS ORDERED: MAGNESIUM SULFATE 2GM 50 ML IV ONE (08:30)
--- NOTE | 2018-08-06 08:37 | PDOC ---
PROGRESS NOTES Subjective Subjective Patient awake, speech slow and appears somewhat sleepy. Denies pain. Objective Objective Vital Signs Date Time Temp Pulse Resp B/P (MAP) Pulse Ox O2 Delivery O2 Flow Rate FiO2 08/06/18 06:00 79 12 142/68 (92) 99 Room Air 08/06/18 04:00 98.5 98.5 Intake and Output 08/06/18 07:01 Intake Total 637.15 ml Output Total 1750 ml Balance -1112.85 ml Intake IV Total 637.15 ml Output Urine Total 1750 ml Physical Exam Abdomen: Normal bowel sounds, Soft, No tenderness Heart: Regular rate Extremities: No edema General: Alert, Oriented X3, No acute distress Lungs: Clear to auscultation Neuro: Other (speech slow and somewhat dysarthric, mild facial droop present ) Assessment Assessment Problems Medical Problems: (1) Acute spont intraparenchymal hemorrhage assoc w/ hypertension Status: Acute Plan Plan of Care 1. Acute hemorrhagic CVA - patient not at baseline yet. Failed initial swallowing eval so NPO and awaiting ST. Neuro following. Continue supportive care. 2. HTN - hypertensive urgency at admission. Patient's BP usually controlled with her medications when seen at office visits. Patient reports she has only been taking her meds about once weekly as she forgets to take them. Started on Cardene gtt at admission, weaned off that and presently normotensive without meds. Resume home meds when safe to swallow. 3. glucose intolerance - used to take medication for DM but recent A1C was normal without any medication. Comment Review of Relevant I have reviewed the following items pranav (where applicable) has been applied. Labs Laboratory Tests Test 08/05/18 11:22 08/05/18 11:25 08/05/18 12:50 08/05/18 17:21 Glucose (Fingerstick) 113 mg/dL (70-99) 96 mg/dL (70-99) White Blood Count 2.9 x10^3/uL (4.0-11.0) Red Blood Count 4.59 x10^6/uL (3.50-5.40) Hemoglobin 13.3 g/dL (12.0-15.5) Hematocrit 40.9 % (36.0-47.0) Mean Corpuscular Volume 89 fL (79-100) Mean Corpuscular Hemoglobin 29 pg (25-35) Mean Corpuscular Hemoglobin Concent 32 g/dL (31-37) Red Cell Distribution Width 14.5 % (11.5-14.5) Platelet Count 247 x10^3/uL (140-400) Neutrophils (%) (Auto) 53 % (31-73) Lymphocytes (%) (Auto) 39 % (24-48) Monocytes (%) (Auto) 7 % (0-9) Eosinophils (%) (Auto) 1 % (0-3) Basophils (%) (Auto) 1 % (0-3) Neutrophils # (Auto) 1.5 x10^3uL (1.8-7.7) Lymphocytes # (Auto) 1.1 x10^3/uL (1.0-4.8) Monocytes # (Auto) 0.2 x10^3/uL (0.0-1.1) Eosinophils # (Auto) 0.0 x10^3/uL (0.0-0.7) Basophils # (Auto) 0.0 x10^3/uL (0.0-0.2) Sodium Level 140 mmol/L (136-145) Potassium Level 4.1 mmol/L (3.5-5.1) Chloride Level 105 mmol/L (98-107) Carbon Dioxide Level 28 mmol/L (21-32) Anion Gap 7 (6-14) Blood Urea Nitrogen 15 mg/dL (7-20) Creatinine 0.9 mg/dL (0.6-1.0) Estimated GFR (Cockcroft-Gault) 78.4 BUN/Creatinine Ratio 17 (6-20) Glucose Level 114 mg/dL (70-99) Calcium Level 9.0 mg/dL (8.5-10.1) Magnesium Level 1.7 mg/dL (1.8-2.4) Total Bilirubin 0.6 mg/dL (0.2-1.0) Aspartate Amino Transf (AST/SGOT) 18 U/L (15-37) Alanine Aminotransferase (ALT/SGPT) 32 U/L (14-59) Alkaline Phosphatase 96 U/L (46-116) Troponin I Quantitative < 0.017 ng/mL (0.000-0.055) Total Protein 7.9 g/dL (6.4-8.2) Albumin 4.0 g/dL (3.4-5.0) Albumin/Globulin Ratio 1.0 (1.0-1.7) Triglycerides Level 31 mg/dL (0-150) Cholesterol Level 196 mg/dL (0-200) LDL Cholesterol, Calculated 124 mg/dL (0-100) VLDL Cholesterol, Calculated 6 mg/dL (0-40) Non-HDL Cholesterol Calculated 130 mg/dL (0-129) HDL Cholesterol 66 mg/dL (40-60) Cholesterol/HDL Ratio 3.0 Urine Collection Type U cath Urine Color Yellow Urine Clarity Clear Urine pH 7.0 Urine Specific [employer] 1.010 Urine Protein Negative mg/dL (NEG-TRACE) Urine Glucose (UA) Negative mg/dL (NEG) Urine Ketones (Stick) Negative mg/dL (NEG) Urine Blood Negative (NEG) Urine Nitrite Negative (NEG) Urine Bilirubin Negative (NEG) Urine Urobilinogen Dipstick 0.2 mg/dL (0.2 mg/dL) Urine Leukocyte Esterase Trace (NEG) Urine RBC 0 /HPF (0-2) Urine WBC 1-4 /HPF (0-4) Urine Bacteria Many /HPF (0-FEW) Test 08/06/18 08:09 Glucose (Fingerstick) 119 mg/dL (70-99) Laboratory Tests Test 08/05/18 11:22 08/05/18 11:25 08/05/18 12:50 08/05/18 17:21 Glucose (Fingerstick) 113 mg/dL (70-99) 96 mg/dL (70-99) White Blood Count 2.9 x10^3/uL (4.0-11.0) Red Blood Count 4.59 x10^6/uL (3.50-5.40) Hemoglobin 13.3 g/dL (12.0-15.5) Hematocrit 40.9 % (36.0-47.0) Mean Corpuscular Volume 89 fL (79-100) Mean Corpuscular Hemoglobin 29 pg (25-35) Mean Corpuscular Hemoglobin Concent 32 g/dL (31-37) Red Cell Distribution Width 14.5 % (11.5-14.5) Platelet Count 247 x10^3/uL (140-400) Neutrophils (%) (Auto) 53 % (31-73) Lymphocytes (%) (Auto) 39 % (24-48) Monocytes (%) (Auto) 7 % (0-9) Eosinophils (%) (Auto) 1 % (0-3) Basophils (%) (Auto) 1 % (0-3) Neutrophils # (Auto) 1.5 x10^3uL (1.8-7.7) Lymphocytes # (Auto) 1.1 x10^3/uL (1.0-4.8) Monocytes # (Auto) 0.2 x10^3/uL (0.0-1.1) Eosinophils # (Auto) 0.0 x10^3/uL (0.0-0.7) Basophils # (Auto) 0.0 x10^3/uL (0.0-0.2) Sodium Level 140 mmol/L (136-145) Potassium Level 4.1 mmol/L (3.5-5.1) Chloride Level 105 mmol/L (98-107) Carbon Dioxide Level 28 mmol/L (21-32) Anion Gap 7 (6-14) Blood Urea Nitrogen 15 mg/dL (7-20) Creatinine 0.9 mg/dL (0.6-1.0) Estimated GFR (Cockcroft-Gault) 78.4 BUN/Creatinine Ratio 17 (6-20) Glucose Level 114 mg/dL (70-99) Calcium Level 9.0 mg/dL (8.5-10.1) Magnesium Level 1.7 mg/dL (1.8-2.4) Total Bilirubin 0.6 mg/dL (0.2-1.0) Aspartate Amino Transf (AST/SGOT) 18 U/L (15-37) Alanine Aminotransferase (ALT/SGPT) 32 U/L (14-59) Alkaline Phosphatase 96 U/L (46-116) Troponin I Quantitative < 0.017 ng/mL (0.000-0.055) Total Protein 7.9 g/dL (6.4-8.2) Albumin 4.0 g/dL (3.4-5.0) Albumin/Globulin Ratio 1.0 (1.0-1.7) Triglycerides Level 31 mg/dL (0-150) Cholesterol Level 196 mg/dL (0-200) LDL Cholesterol, Calculated 124 mg/dL (0-100) VLDL Cholesterol, Calculated 6 mg/dL (0-40) Non-HDL Cholesterol Calculated 130 mg/dL (0-129) HDL Cholesterol 66 mg/dL (40-60) Cholesterol/HDL Ratio 3.0 Urine Collection Type U cath Urine Color Yellow Urine Clarity Clear Urine pH 7.0 Urine Specific [employer] 1.010 Urine Protein Negative mg/dL (NEG-TRACE) Urine Glucose (UA) Negative mg/dL (NEG) Urine Ketones (Stick) Negative mg/dL (NEG) Urine Blood Negative (NEG) Urine Nitrite Negative (NEG) Urine Bilirubin Negative (NEG) Urine Urobilinogen Dipstick 0.2 mg/dL (0.2 mg/dL) Urine Leukocyte Esterase Trace (NEG) Urine RBC 0 /HPF (0-2) Urine WBC 1-4 /HPF (0-4) Urine Bacteria Many /HPF (0-FEW) Test 08/06/18 08:09 Glucose (Fingerstick) 119 mg/dL (70-99) Medications Current Medications Labetalol HCl (Normodyne Iv Push) 10 mg 1X ONCE IVP Last administered on at 12:20; Start 08/05/18 at 12:15; Stop 08/05/18 at 12:16; Status DC Nicardipine HCl 50 mg/Sodium Chloride 250 ml @ 25 mls/hr CONT PRN IV SEE I/O RECORD Last administered on 08/06/18at 07:40; Start 08/05/18 at 13:00 Ondansetron HCl (Zofran) 4 mg PRN Q8HRS PRN IV NAUSEA/VOMITING; Start 08/05/18 at 13:15; Stop 08/06/18 at 13:14 Fentanyl Citrate (Fentanyl 2ml Vial) 50 mcg PRN Q1HR PRN IV PAIN; Start at 13:15; Stop 08/06/18 at 13:14 Atorvastatin Calcium (Lipitor) 20 mg QHS PO ; Start 08/05/18 at 21:00 Iohexol (Omnipaque 350 Mg/ml) 75 ml 1X ONCE IV Last administered on 08/05/18at 16:30; Start 08/05/18 at 16:30; Stop 08/05/18 at 16:31; Status DC Info (CONTRAST GIVEN -- Rx MONITORING) 1 each PRN DAILY PRN MC SEE COMMENTS; Start 08/05/18 at 16:30; Stop 08/07/18 at 16:29 Potassium Chloride/Dextrose/ Sod Cl 1,000 ml @ 75 mls/hr [id number] IV Last administered on 08/06/18at 06:38; Start 08/05/18 at 17:30 Magnesium Sulfate 50 ml @ 25 mls/hr 1X ONCE IV ; Start 08/06/18 at 08:30; Stop 08/06/18 at 10:29; Status UNV Active Scripts Active Benazepril Hcl 40 Mg Tablet 1 Tab PO DAILY 30 Days Amlodipine Besylate 5 Mg Tablet 5 Mg PO DAILY 30 Days Aspirin 81 Mg Tab.chew 1 Tab PO DAILY Flomax (Tamsulosin Hcl) 0.4 Mg Cap.er.24h 1 Cap PO DAILY Vitals/I & O Vital Sign - Last 24 Hours 08/05/18 08/05/18 08/05/18 08/05/18 11:14 12:02 12:17 12:20 Temp 98.6 98.6 Pulse 87 81 99 106 Resp 20 16 16 B/P (MAP) 233/95 (141) 193/91 Pulse Ox 99 100 100 O2 Delivery Room Air 08/05/18 08/05/18 08/05/18 08/05/18 12:21 12:24 12:32 12:47 Pulse 89 85 81 85 Resp 18 16 18 17 Pulse Ox 100 99 99 100 08/05/18 08/05/18 08/05/18 08/05/18 12:50 13:02 13:30 13:45 Pulse 82 76 74 77 Resp 17 16 14 14 Pulse Ox 100 100 97 100 08/05/18 08/05/18 08/05/18 08/05/18 14:00 14:10 14:20 14:30 Temp 97.9 97.9 Pulse 80 14 82 Resp 16 16 16 B/P (MAP) 156/91 (112) Pulse Ox 97 98 98 O2 Delivery Room Air Room Air 08/05/18 08/05/18 08/05/18 08/05/18 14:45 15:00 15:15 15:30 Pulse 92 90 88 84 Resp 15 16 18 16 B/P (MAP) 153/86 (108) 158/77 (104) 164/87 (112) 151/78 (102) Pulse Ox 100 99 100 99 O2 Delivery Room Air Room Air Room Air Room Air 08/05/18 08/05/18 08/05/18 08/05/18 15:45 16:00 16:00 16:15 Temp 97.7 97.7 Pulse 94 116 128 Resp 18 16 18 B/P (MAP) 157/92 (113) 186/119 (141) 207/117 (147) Pulse Ox 100 99 99 O2 Delivery Room Air Room Air Room Air Room Air 08/05/18 08/05/18 08/05/18 08/05/18 16:30 16:45 17:15 17:30 Pulse 106 94 90 98 Resp 18 14 14 16 B/P (MAP) 140/92 (108) 119/92 (101) 140/68 (92) 153/77 (102) Pulse Ox 99 97 99 99 O2 Delivery Room Air Room Air Room Air Room Air 08/05/18 08/05/18 08/05/18 08/05/18 17:45 18:00 18:30 19:00 Pulse 86 86 90 86 Resp 16 B/P (MAP) 143/77 (99) 153/77 (102) 155/90 (111) 189/116 (140) Pulse Ox 99 O2 Delivery Room Air 08/05/18 08/05/18 08/05/18 08/05/18 20:00 20:00 21:00 22:00 Temp 98.7 98.7 Pulse 90 92 84 Resp 18 16 14 B/P (MAP) 163/94 (117) 147/82 (103) 152/104 (120) Pulse Ox 100 99 98 O2 Delivery Room Air Room Air Room Air Room Air 08/05/18 08/05/18 08/06/18 08/06/18 23:00 23:59 00:00 01:00 Temp 98.7 98.7 Pulse 83 87 80 Resp 13 13 13 B/P (MAP) 151/79 (103) 152/79 (103) 173/82 (112) Pulse Ox 99 98 98 O2 Delivery Room Air Room Air Room Air Room Air 08/06/18 08/06/18 08/06/18 08/06/18 02:00 03:00 04:00 04:00 Temp 98.5 98.5 Pulse 78 84 83 Resp 12 12 13 B/P (MAP) 141/79 (99) 127/72 (90) 131/75 (93) Pulse Ox 98 98 99 O2 Delivery Room Air Room Air Room Air Room Air 08/06/18 08/06/18 05:00 06:00 Pulse 77 79 Resp 12 12 B/P (MAP) 149/74 (99) 142/68 (92) Pulse Ox 97 99 O2 Delivery Room Air Room Air Intake and Output 08/05/18 08/05/18 08/06/18 15:01 23:01 07:01 Intake Total 54.15 ml 583 ml Output Total 750 ml 1000 ml Balance -695.85 ml -417 ml LIVE ACOSTA MD Aug 06, 2018 08:37
--- NOTE | 2018-08-06 09:15 | HP ---
ADMIT DATE: 08/05/2018 CHIEF COMPLAINT: Left-sided weakness. HISTORY OF PRESENT ILLNESS: The patient is a 57-year-old female with a history of several previous ischemic CVAs. She was brought to the Emergency Room via ambulance with the above complaint. She had apparently fallen out of bed on the evening prior to admission. She may have laid there for some time until the family found her the next day and called paramedics. Initial evaluation in the Emergency Room showed the patient to have a blood pressure of 193/91. She had some left-sided weakness and a left facial droop. A CT of the head without contrast showed an acute intraparenchymal hemorrhage within the right thalamus, and the patient was admitted for further care. PAST MEDICAL HISTORY: Hypertension, glucose intolerance, previous CVAs. PAST SURGICAL HISTORY: [facility], 09/2003. ALLERGIES: The patient has no known drug allergies. HOME MEDICATIONS: Aspirin 81 mg daily, amlodipine 5 mg daily, tamsulosin 0.4 mg daily, benazepril 40 mg daily. FAMILY HISTORY: Positive for diabetes in several family members. SOCIAL HISTORY: The patient does not smoke cigarettes or drink alcohol to excess. She is and is disabled. REVIEW OF SYSTEMS: This is presently not obtainable from the patient. Review of systems in the Emergency Department indicates no significant recent illnesses or symptoms. The patient does admit that she has been taking her blood pressure medicines only occasionally, not daily. She states she forgets to take them. PHYSICAL EXAMINATION: GENERAL: The patient is sleeping quietly in no acute distress. She is somewhat sleepy and slow to awaken. HEENT: PERRL, EOMI, sclerae clear. Oropharynx: Mucous membranes moist. NECK: Supple, without lymphadenopathy. CHEST: Clear to auscultation. CARDIOVASCULAR: Regular rhythm without murmur. ABDOMEN: Soft, nontender, normoactive bowel sounds are present. LOWER EXTREMITIES: Without edema. NEUROLOGIC: Mild left facial droop is present, but the patient does not fully cooperate with the exam. The patient's speech is somewhat slow and mildly dysarthric at baseline. This seems worsened today. ASSESSMENT AND PLAN: 1. Acute hemorrhagic cerebrovascular accident. The patient is not at her baseline yet. She failed an initial swallowing exam, so she is n.p.o. until Speech Therapy can see her today. She has been seen by Neurology and further evaluation has been ordered. We will continue supportive care and therapies. 2. Hypertension. The patient had hypertensive urgency at admission, her blood pressure is usually well controlled with her oral medication when she is seen at office visits. She was started on a Cardene drip at admission. This has been weaned, and she is presently normotensive without medication. We will resume her usual oral medications when it is safe for her to swallow them. 3. Glucose intolerance. The patient used to take medication for diabetes, but her recent A1c's have been normal without any medication. 4. Hypomagnesemia. Her magnesium was a little low at admission and IV replacement has been ordered. 5. Chronic urinary retention. Resume Flomax when she is able to take oral medication. LIVE ACOSTA MD DR: [email or web address]/tameka JOB#: [id number] / [id number] MERE
--- NOTE | 2018-08-06 12:30 | CARD ---
MR#: [id number] Date of Study: 08/06/2018 Ordering Physician: VINNIE SPRING, Referring Physician: LIVE ACOSTA Tech: Rebeca Ernandez APPROVED REPORT EXAM: Two-dimensional and M-mode echocardiogram with Doppler and color Doppler. Other Information Quality : AverageHR: 84bpm INDICATION CVA/TIA Echo Enhancing Agent Indication: Rule Out Septal Defect Agent/Amount Used: Agitated Saline 8mL RISK FACTORS Hypertension 2D DIMENSIONS RVDd2.8 (2.9-3.5cm)Left Atrium(2D)3.1 (1.6-4.0cm) IVSd1.4 (0.7-1.1cm)Aortic Root(2D)3.1 (2.0-3.7cm) LVDd4.4 (3.9-5.9cm)LVOT Diameter2.2 (1.8-2.4cm) PWd1.4 (0.7-1.1cm)LVDs2.7 (2.5-4.0cm) FS (%) 38.0 %SV59.6 ml LVEF(%)68.4 (>50%) Aortic Valve AoV Peak Eligio.130.6cm/sAoV VTI22.5cm AO Peak GR.6.8mmHgLVOT VTI 14.32cm AO Mean GR.3mmHg Mitral Valve MV E Sivzhdte96.3cm/sMV DECEL [id number] MV A Pymywmdz33.9cm/sE/A Ratio0.7 TDI Lateral E' P. V7.14cm/sMedial E' P. V6.24cm/s E/Lateral E'8.0E/Medial E'9.2 Tricuspid Valve TR P. Tdypivyu330rr/sRAP LSYSVNZH9zoIu TR Peak Gr.37ejYkOVGV23ksFf Pulmonary Vein S1 Wkdtasbp16.3cm/sS2 Sunuxehb82.52cm/s D2 Ymgvyjou51.5cm/s LEFT VENTRICLE The left ventricle is normal size. There is moderate concentric left ventricular hypertrophy. The lef t ventricular systolic function is normal and the ejection fraction is within normal range. The Eject ion Fraction is >55%. There is normal LV segmental wall motion. Transmitral Doppler flow pattern is G rade I-abnormal relaxation pattern. RIGHT VENTRICLE The right ventricle is normal size. There is normal right ventricular wall thickness. The right ventr icular systolic function is normal. ATRIA The left atrium size is normal. The right atrium size is normal. The interatrial septum is intact wit h no evidence for an atrial septal defect or patent foramen ovale as noted on 2-D or Doppler imaging. AORTIC VALVE The aortic valve is normal in structure and function. Doppler and Color Flow revealed no significant aortic regurgitation. There is no significant aortic valvular stenosis. MITRAL VALVE The mitral valve is normal in structure and function. There is no evidence of mitral valve prolapse. There is no mitral valve stenosis. Doppler and Color-flow revealed trace mitral regurgitation. TRICUSPID VALVE The tricuspid valve is normal in structure and function. Doppler and Color Flow revealed trace tricus pid regurgitation with an estimated PAP of 23 mmHg. There is no tricuspid valve stenosis. PULMONIC VALVE The pulmonic valve is not well visualized. Doppler and Color Flow revealed no pulmonic valvular regur gitation. GREAT VESSELS The aortic root is normal in size. The IVC is normal in size and collapses >50% with inspiration. PERICARDIAL EFFUSION There is no evidence of significant pericardial effusion. Critical Notification Critical Value: No <Conclusion> The left ventricular systolic function is normal and the ejection fraction is within normal range. Th e Ejection Fraction is >55%. There is normal LV segmental wall motion. Signed by : Nick Sue, Electronically Approved : 08/06/2018 12:27:41
[2018-08-06] MEDS: LISINOPRIL 20 MG TABLET PO SCH (13:44)
[2018-08-06] MEDS: amLODIPine BESYLATE 5 MG TABLET PO SCH (13:45)
[2018-08-06] MEDS: TAMSULOSIN 0.4 MG CAP.ER.24H. PO SCH (13:45)
[2018-08-06 14:23] LABS: AMPHETAMINE/METHAMPHETAMINE NEG (NEG); BARBITURATES NEG (NEG); BENZODIAZEPINES NEG (NEG); CANNABINOIDS NEG (NEG); COCAINE NEG (NEG); METHADONE NEG (NEG); OPIATES NEG (NEG); PHENCYCLIDINE NEG (NEG)
--- NOTE | 2018-08-06 15:08 | RAD ---
RS Compliance Statement: One or more of the following individualized dose reduction techniques were utilized for this examination: 1. Automated exposure control 2. Adjustment of the mA and/or kV according to patient size 3. Use of iterative reconstruction technique CT head without contrast 08/06/2018 12:47 PM INDICATION: Intracranial hemorrhage COMPARISON: CT head August 05, 2018 TECHNIQUE: Multiple axial CT images of the head were obtained from skull base through the vertex without intravenous contrast. FINDINGS: Head: Stable 16 mm intraparenchymal hemorrhage involving the right thalamus with associated vasogenic edema. Ventricles, sulci and basal cisterns are normal in appearance. No hydrocephalus. Low-attenuation in the periventricular white matter is suggestive of chronic small vessel ischemic changes. Zabala-white matter differentiation is preserved. No extra-axial hemorrhage is identified. Orbits are normal in appearance. Paranasal sinuses and mastoid air cells are well aerated. Scalp and calvaria appear intact. IMPRESSION: Stable 16 mm parenchymal hemorrhage involving the right thalamus with associated vasogenic edema. Findings result in mild mass effect on the third ventricle without hydrocephalus. Electronically signed by: Beba Gerard MD (08/06/2018 3:03 PM) [id number]
--- NOTE | 2018-08-06 17:37 | PDOC ---
PROGRESS NOTES Assessment Assessment IMPRESSION: Right thalamus 1.6 cm hemorrhage. Cerebral edema. Left side weakness. Metabolic encephalopathy. Hypertensive encephalopathy. Hypertensive emergency BP 233/95 mmHg. HTN. HLD. Obesity. RECOMMENDATIONS/PLAN: Continue life support in ICU. BP control. Repeat HCT w/o contrast if condition worse. Lab: see orders. Avoid antiplatelet and anticoagulant agent. Treat medical diseases. Past Medical History Cardiovascular: HTN, Hyperlipidemia CENTRAL NERVOUS SYSTEM: CVA Endocrine: Diabetes Past Surgical History Hysterectomy Social History ALCOHOL: none Drugs: None ALLERGY: NKDA MEDICATIONS: Refer to MAR REVIEW OF SYSTEMS: Constitutional: Obesity. Head: No traumatic brain or head injury. Skin: No edema, or rash. Ear: No infection. Eyes: No vision loss, or diplopia. Nose: No bleeding or purulent discharges. Hearing: No hearing decrease. Hearing loss. Neck: No injury. Breast: No history of cancer, masses, or discharges. Cardiac: HTN, HLD Pulmonary: COPD. GI: No GI Ulcer, GI bleeding Urinary/genital: UTI. Endocrine: Obesity. Skeletomuscular: No muscular atrophy, deformity. Neurological: see HP. Psychiatric: Denies drug use/abuse. Otherwise, not [id number] review of systems. PHYSICAL EXAMINATION: General appearance in acute distress. HEENT: Normocephalic and nontraumatic. Eyes, nose, ears, and throat are unremarkable. Neck is supple. No lymphadenopathy. No Crepitus. Cardiovascular: S1, S2, regular rate and rhythm. Pulmonary: Clear to auscultation bilaterally. Abdomen: Bowel sounds are positive. Extremities: No rash, lesions, or edema. No restriction of range of motion NEUROLOGICAL EXAMINATION: Sleepiness, but arpusable. Not oriented to time, place and person. PERRL. Pupils 1 mm. EOMI. CN: Left VII palsy, mild. Muscle tone: Mildly decreased in left side. Muscle strength: 4 left side, 5 right side. DTR: 1-2 Plantar reflex: Neutral response bilaterally Gait: not examined in bed. Sensory exam: not able to access due to not follow commands. No cerebellar signs elicited. Objective Objective Vital Signs Date Time Temp Pulse Resp B/P (MAP) Pulse Ox O2 Delivery O2 Flow Rate FiO2 08/06/18 15:30 72 125/59 (81) 08/06/18 15:00 98.1 18 100 Room Air 98.1 Intake and Output 08/06/18 07:01 Intake Total 637.15 ml Output Total 1810 ml Balance -1172.85 ml Intake IV Total 637.15 ml Output Urine Total 1810 ml Vitals Signs Vitals VS - Last 72 Hours, by Label Date Time Temp Pulse Resp B/P (MAP) Pulse Ox O2 Delivery O2 Flow Rate FiO2 08/06/18 15:30 72 125/59 (81) 08/06/18 15:00 98.1 86 18 150/102 (118) 100 Room Air 98.1 08/06/18 14:00 86 18 143/86 (105) 98 Room Air 08/06/18 13:45 93 145/81 08/06/18 13:44 96 145/81 08/06/18 13:00 90 16 149/93 (111) 99 Room Air 08/06/18 12:00 98.0 82 16 181/90 (120) 100 Room Air 98.0 08/06/18 12:00 Room Air 08/06/18 11:00 74 15 161/88 (112) 99 Room Air 08/06/18 10:00 78 15 138/80 (99) 100 Room Air 08/06/18 09:00 78 16 159/94 (115) 100 Room Air 08/06/18 08:00 Room Air 08/06/18 08:00 98.4 74 16 129/65 (86) 99 Room Air 98.4 08/06/18 07:00 76 14 132/69 (90) 99 Room Air 08/06/18 06:00 79 12 142/68 (92) 99 Room Air 08/06/18 05:00 77 12 149/74 (99) 97 Room Air 08/06/18 04:00 Room Air 08/06/18 04:00 98.5 83 13 131/75 (93) 99 Room Air 98.5 08/06/18 03:00 84 12 127/72 (90) 98 Room Air 08/06/18 02:00 78 12 141/79 (99) 98 Room Air 08/06/18 01:00 80 13 173/82 (112) 98 Room Air 08/06/18 00:00 98.7 87 13 152/79 (103) 98 Room Air 98.7 08/05/18 23:59 Room Air 08/05/18 23:00 83 13 151/79 (103) 99 Room Air 08/05/18 22:00 84 14 152/104 (120) 98 Room Air 08/05/18 21:00 92 16 147/82 (103) 99 Room Air 08/05/18 20:00 Room Air 08/05/18 20:00 98.7 90 18 163/94 (117) 100 Room Air 98.7 08/05/18 19:00 86 16 189/116 (140) 99 Room Air 08/05/18 18:30 90 155/90 (111) 08/05/18 18:00 86 153/77 (102) 08/05/18 17:45 86 143/77 (99) 08/05/18 17:30 98 16 153/77 (102) 99 Room Air 08/05/18 17:15 90 14 140/68 (92) 99 Room Air 08/05/18 16:45 94 14 119/92 (101) 97 Room Air 08/05/18 16:30 106 18 140/92 (108) 99 Room Air 08/05/18 16:15 128 18 207/117 (147) 99 Room Air 08/05/18 16:00 97.7 116 16 186/119 (141) 99 Room Air 97.7 08/05/18 16:00 Room Air 08/05/18 15:45 94 18 157/92 (113) 100 Room Air 08/05/18 15:30 84 16 151/78 (102) 99 Room Air 08/05/18 15:15 88 18 164/87 (112) 100 Room Air 08/05/18 15:00 90 16 158/77 (104) 99 Room Air 08/05/18 14:45 92 15 153/86 (108) 100 Room Air 08/05/18 14:30 97.9 82 16 156/91 (112) 98 Room Air 97.9 08/05/18 14:20 Room Air 08/05/18 14:10 14 16 98 08/05/18 14:00 80 16 97 08/05/18 13:45 77 14 100 08/05/18 13:30 74 14 97 08/05/18 13:02 76 16 100 08/05/18 12:50 82 17 100 08/05/18 12:47 85 17 100 08/05/18 12:32 81 18 99 08/05/18 12:24 85 16 99 08/05/18 12:21 89 18 100 08/05/18 12:20 106 193/91 08/05/18 12:17 99 16 100 08/05/18 12:02 81 16 100 08/05/18 11:14 98.6 87 20 233/95 (141) 99 Room Air 98.6 Laboratory Laboratory Laboratory Tests Test 08/06/18 08:09 08/06/18 13:55 Glucose (Fingerstick) 119 mg/dL (70-99) Urine Opiates Screen Neg (NEG) Urine Methadone Screen Neg (NEG) Urine Barbiturates Neg (NEG) Urine Phencyclidine Screen Neg (NEG) Urine Amphetamine/Methamphetamine Neg (NEG) Urine Benzodiazepines Screen Neg (NEG) Urine Cocaine Screen Neg (NEG) Urine Cannabinoids Screen Neg (NEG) Urine Ethyl Alcohol Neg (NEG) Medication Medications Current Medications Amlodipine Besylate (Norvasc) 5 mg DAILY PO Last administered on 08/06/18at 13: 45; Start 08/06/18 at 13:00 Atorvastatin Calcium (Lipitor) 20 mg QHS PO ; Start 08/05/18 at 21:00 Lisinopril (Prinivil) 40 mg DAILY PO Last administered on 08/06/18at 13:44; Start 08/06/18 at 13:00 Magnesium Sulfate 50 ml @ 25 mls/hr 1X ONCE IV Last administered on 08/06/18at 09:55; Start 08/06/18 at 08:30; Stop 08/06/18 at 10:29; Status DC Potassium Chloride/Dextrose/ Sod Cl 1,000 ml @ 75 mls/hr [id number] IV Last administered on 08/06/18at 06:38; Start 08/05/18 at 17:30; Stop 08/06/18 at 15:41 ; Status DC Tamsulosin HCl (Flomax) 0.4 mg DAILY PO Last administered on 08/06/18at 13:45; Start 08/06/18 at 13:00 Comment Review of Relevant I have reviewed the following items pranav (where applicable) has been applied. ANUEL MORA MD Aug 06, 2018 17:37
--- NOTE | 2018-08-06 19:40 | PDOC ---
Provider Note Provider Note Patient seen and examined at 1130 in ICU Right thalamus hemorrhage BP control will follow full consult to follow CHELSEA CAMPOS MD Aug 06, 2018 19:40
[2018-08-06] MEDS: ATORVASTATIN CALCIUM 20 MG TABLET PO SCH (20:04)
[2018-08-06] MEDS ORDERED: ACETAMINOPHEN 325 MG TABLET. PO PRN (20:15)
[2018-08-07] VITALS (7 sets, daily range): BP systolic 102–150; BP diastolic 65–85
--- NOTE | 2018-08-07 02:02 | NUR ---
Patient arrived to unit at approximately 0030. This nurse agrees with previous nurses assessments. NIH upon transfer was 2
[2018-08-07 03:46] LABS: HEMATOCRIT 38.3 % (36.0-47.0); HEMOGLOBIN 12.8 g/dL (12.0-15.5); RED BLOOD COUNT 4.3 x10^6/uL (3.50-5.40); RED CELL DISTRIBUTION WIDTH 14.4 % (11.5-14.5); WHITE BLOOD COUNT 3.7 x10^3/uL (4.0-11.0)
[2018-08-07 04:03] LABS: CALCIUM 9.3 mg/dL (8.5-10.1); CREATININE 1.1 mg/dL (0.6-1.0); GFR 62.2; MAGNESIUM 2.1 mg/dL (1.8-2.4)
--- NOTE | 2018-08-07 08:22 | PDOC ---
PROGRESS NOTES Subjective Subjective Patient without complaint. Agreeable to transferring to Rehab. Objective Objective Vital Signs Date Time Temp Pulse Resp B/P (MAP) Pulse Ox O2 Delivery O2 Flow Rate FiO2 08/07/18 07:00 98.4 77 18 119/73 (88) 96 Room Air 98.4 Intake and Output 08/07/18 07:01 Intake Total 970 ml Output Total 1280 ml Balance -310 ml Intake Oral 970 ml Output Urine Total 1280 ml Physical Exam Abdomen: Normal bowel sounds, Soft, No tenderness Heart: Regular rate Extremities: No edema General: Alert, Oriented X3, No acute distress Lungs: Clear to auscultation Assessment Assessment Problems Medical Problems: (1) Acute spont intraparenchymal hemorrhage assoc w/ hypertension Status: Acute Plan Plan of Care 1. Acute hemorrhagic CVA - stable, CT yesterday without further bleeding. On Dysphagia diet per ST. Continue therapies, should be able to transfer to Acute Rehab tomorrow if arrangements can be made. 2. HTN - well controlled with home meds. 3. glucose intolerance - controlled, continue ADA diet. 4. hypomagnesemia - resolved after IV replacement yesterday. Comment Review of Relevant I have reviewed the following items pranav (where applicable) has been applied. Labs Laboratory Tests Test 08/05/18 11:22 08/05/18 11:25 08/05/18 12:50 08/05/18 15:05 Glucose (Fingerstick) 113 mg/dL (70-99) White Blood Count 2.9 x10^3/uL (4.0-11.0) Red Blood Count 4.59 x10^6/uL (3.50-5.40) Hemoglobin 13.3 g/dL (12.0-15.5) Hematocrit 40.9 % (36.0-47.0) Mean Corpuscular Volume 89 fL (79-100) Mean Corpuscular Hemoglobin 29 pg (25-35) Mean Corpuscular Hemoglobin Concent 32 g/dL (31-37) Red Cell Distribution Width 14.5 % (11.5-14.5) Platelet Count 247 x10^3/uL (140-400) Neutrophils (%) (Auto) 53 % (31-73) Lymphocytes (%) (Auto) 39 % (24-48) Monocytes (%) (Auto) 7 % (0-9) Eosinophils (%) (Auto) 1 % (0-3) Basophils (%) (Auto) 1 % (0-3) Neutrophils # (Auto) 1.5 x10^3uL (1.8-7.7) Lymphocytes # (Auto) 1.1 x10^3/uL (1.0-4.8) Monocytes # (Auto) 0.2 x10^3/uL (0.0-1.1) Eosinophils # (Auto) 0.0 x10^3/uL (0.0-0.7) Basophils # (Auto) 0.0 x10^3/uL (0.0-0.2) Sodium Level 140 mmol/L (136-145) Potassium Level 4.1 mmol/L (3.5-5.1) Chloride Level 105 mmol/L (98-107) Carbon Dioxide Level 28 mmol/L (21-32) Anion Gap 7 (6-14) Blood Urea Nitrogen 15 mg/dL (7-20) Creatinine 0.9 mg/dL (0.6-1.0) Estimated GFR (Cockcroft-Gault) 78.4 BUN/Creatinine Ratio 17 (6-20) Glucose Level 114 mg/dL (70-99) Calcium Level 9.0 mg/dL (8.5-10.1) Magnesium Level 1.7 mg/dL (1.8-2.4) Total Bilirubin 0.6 mg/dL (0.2-1.0) Aspartate Amino Transf (AST/SGOT) 18 U/L (15-37) Alanine Aminotransferase (ALT/SGPT) 32 U/L (14-59) Alkaline Phosphatase 96 U/L (46-116) Troponin I Quantitative < 0.017 ng/mL (0.000-0.055) Total Protein 7.9 g/dL (6.4-8.2) Albumin 4.0 g/dL (3.4-5.0) Albumin/Globulin Ratio 1.0 (1.0-1.7) Triglycerides Level 31 mg/dL (0-150) Cholesterol Level 196 mg/dL (0-200) LDL Cholesterol, Calculated 124 mg/dL (0-100) VLDL Cholesterol, Calculated 6 mg/dL (0-40) Non-HDL Cholesterol Calculated 130 mg/dL (0-129) HDL Cholesterol 66 mg/dL (40-60) Cholesterol/HDL Ratio 3.0 Urine Collection Type U cath Urine Color Yellow Urine Clarity Clear Urine pH 7.0 Urine Specific [place] 1.010 Urine Protein Negative mg/dL (NEG-TRACE) Urine Glucose (UA) Negative mg/dL (NEG) Urine Ketones (Stick) Negative mg/dL (NEG) Urine Blood Negative (NEG) Urine Nitrite Negative (NEG) Urine Bilirubin Negative (NEG) Urine Urobilinogen Dipstick 0.2 mg/dL (0.2 mg/dL) Urine Leukocyte Esterase Trace (NEG) Urine RBC 0 /HPF (0-2) Urine WBC 1-4 /HPF (0-4) Urine Bacteria Many /HPF (0-FEW) Nasal Screen MRSA (PCR) Negative (Negative) Test 08/05/18 17:21 08/06/18 08:09 08/06/18 13:55 08/07/18 03:15 Glucose (Fingerstick) 96 mg/dL (70-99) 119 mg/dL (70-99) Urine Opiates Screen Neg (NEG) Urine Methadone Screen Neg (NEG) Urine Barbiturates Neg (NEG) Urine Phencyclidine Screen Neg (NEG) Urine Amphetamine/Methamphetamine Neg (NEG) Urine Benzodiazepines Screen Neg (NEG) Urine Cocaine Screen Neg (NEG) Urine Cannabinoids Screen Neg (NEG) Urine Ethyl Alcohol Neg (NEG) White Blood Count 3.7 x10^3/uL (4.0-11.0) Red Blood Count 4.30 x10^6/uL (3.50-5.40) Hemoglobin 12.8 g/dL (12.0-15.5) Hematocrit 38.3 % (36.0-47.0) Mean Corpuscular Volume 89 fL (79-100) Mean Corpuscular Hemoglobin 30 pg (25-35) Mean Corpuscular Hemoglobin Concent 33 g/dL (31-37) Red Cell Distribution Width 14.4 % (11.5-14.5) Platelet Count 256 x10^3/uL (140-400) Sodium Level 141 mmol/L (136-145) Potassium Level 4.0 mmol/L (3.5-5.1) Chloride Level 103 mmol/L (98-107) Carbon Dioxide Level 29 mmol/L (21-32) Anion Gap 9 (6-14) Blood Urea Nitrogen 14 mg/dL (7-20) Creatinine 1.1 mg/dL (0.6-1.0) Estimated GFR (Cockcroft-Gault) 62.2 Glucose Level 112 mg/dL (70-99) Calcium Level 9.3 mg/dL (8.5-10.1) Magnesium Level 2.1 mg/dL (1.8-2.4) Laboratory Tests Test 08/06/18 13:55 08/07/18 03:15 Urine Opiates Screen Neg (NEG) Urine Methadone Screen Neg (NEG) Urine Barbiturates Neg (NEG) Urine Phencyclidine Screen Neg (NEG) Urine Amphetamine/Methamphetamine Neg (NEG) Urine Benzodiazepines Screen Neg (NEG) Urine Cocaine Screen Neg (NEG) Urine Cannabinoids Screen Neg (NEG) Urine Ethyl Alcohol Neg (NEG) White Blood Count 3.7 x10^3/uL (4.0-11.0) Red Blood Count 4.30 x10^6/uL (3.50-5.40) Hemoglobin 12.8 g/dL (12.0-15.5) Hematocrit 38.3 % (36.0-47.0) Mean Corpuscular Volume 89 fL (79-100) Mean Corpuscular Hemoglobin 30 pg (25-35) Mean Corpuscular Hemoglobin Concent 33 g/dL (31-37) Red Cell Distribution Width 14.4 % (11.5-14.5) Platelet Count 256 x10^3/uL (140-400) Sodium Level 141 mmol/L (136-145) Potassium Level 4.0 mmol/L (3.5-5.1) Chloride Level 103 mmol/L (98-107) Carbon Dioxide Level 29 mmol/L (21-32) Anion Gap 9 (6-14) Blood Urea Nitrogen 14 mg/dL (7-20) Creatinine 1.1 mg/dL (0.6-1.0) Estimated GFR (Cockcroft-Gault) 62.2 Glucose Level 112 mg/dL (70-99) Calcium Level 9.3 mg/dL (8.5-10.1) Magnesium Level 2.1 mg/dL (1.8-2.4) Medications Current Medications Labetalol HCl (Normodyne Iv Push) 10 mg 1X ONCE IVP Last administered on at 12:20; Start 08/05/18 at 12:15; Stop 08/05/18 at 12:16; Status DC Nicardipine HCl 50 mg/Sodium Chloride 250 ml @ 25 mls/hr CONT PRN IV SEE I/O RECORD Last administered on 08/06/18at 07:40; Start 08/05/18 at 13:00; Stop 08/06 at 15:41; Status DC Ondansetron HCl (Zofran) 4 mg PRN Q8HRS PRN IV NAUSEA/VOMITING; Start 08/05/18 at 13:15; Stop 08/06/18 at 13:14; Status DC Fentanyl Citrate (Fentanyl 2ml Vial) 50 mcg PRN Q1HR PRN IV PAIN; Start at 13:15; Stop 08/06/18 at 13:14; Status DC Atorvastatin Calcium (Lipitor) 20 mg QHS PO ; Start 08/05/18 at 21:00 Iohexol (Omnipaque 350 Mg/ml) 75 ml 1X ONCE IV Last administered on 08/05/18at 16:30; Start 08/05/18 at 16:30; Stop 08/05/18 at 16:31; Status DC Info (CONTRAST GIVEN -- Rx MONITORING) 1 each PRN DAILY PRN MC SEE COMMENTS; Start 08/05/18 at 16:30; Stop 08/07/18 at 16:29 Potassium Chloride/Dextrose/ Sod Cl 1,000 ml @ 75 mls/hr [id number] IV Last administered on 08/06/18at 06:38; Start 08/05/18 at 17:30; Stop 08/06/18 at 15:41 ; Status DC Magnesium Sulfate 50 ml @ 25 mls/hr 1X ONCE IV Last administered on 08/06/18at 09:55; Start 08/06/18 at 08:30; Stop 08/06/18 at 10:29; Status DC Amlodipine Besylate (Norvasc) 5 mg DAILY PO Last administered on 08/06/18at 13: 45; Start 08/06/18 at 13:00 Tamsulosin HCl (Flomax) 0.4 mg DAILY PO Last administered on 08/06/18at 13:45; Start 08/06/18 at 13:00 Lisinopril (Prinivil) 40 mg DAILY PO Last administered on 08/06/18at 13:44; Start 08/06/18 at 13:00 Acetaminophen (Tylenol) 650 mg PRN Q6HRS PRN PO MILD PAIN / TEMP Last administered on 08/06/18at 20:29; Start 08/06/18 at 20:15 Active Scripts Active Benazepril Hcl 40 Mg Tablet 1 Tab PO DAILY 30 Days Amlodipine Besylate 5 Mg Tablet 5 Mg PO DAILY 30 Days Aspirin 81 Mg Tab.chew 1 Tab PO DAILY Flomax (Tamsulosin Hcl) 0.4 Mg Cap.er.24h 1 Cap PO DAILY Vitals/I & O Vital Sign - Last 24 Hours 08/06/18 08/06/18 08/06/18 08/06/18 09:00 10:00 11:00 12:00 Pulse 78 78 74 Resp 16 15 15 B/P (MAP) 159/94 (115) 138/80 (99) 161/88 (112) Pulse Ox 100 100 99 O2 Delivery Room Air Room Air Room Air Room Air 08/06/18 08/06/18 08/06/18 08/06/18 12:00 13:00 13:44 13:45 Temp 98.0 98.0 Pulse 82 90 96 93 Resp 16 16 B/P (MAP) 181/90 (120) 149/93 (111) 145/81 145/81 Pulse Ox 100 99 O2 Delivery Room Air Room Air 08/06/18 08/06/18 08/06/18 08/06/18 14:00 15:00 15:30 19:00 Temp 98.1 98.6 98.1 98.6 Pulse 86 86 72 96 Resp 18 18 17 B/P (MAP) 143/86 (105) 150/102 (118) 125/59 (81) 138/66 (90) Pulse Ox 98 100 98 O2 Delivery Room Air Room Air Room Air 08/06/18 08/06/18 08/07/18 08/07/18 20:00 23:00 01:08 03:18 Temp 98.6 98.1 97.9 98.6 98.1 97.9 Pulse 83 81 90 Resp 17 16 16 B/P (MAP) 115/69 (84) 125/65 (85) 134/72 (92) Pulse Ox 99 98 94 O2 Delivery Room Air Room Air Room Air Room Air 08/07/18 07:00 Temp 98.4 98.4 Pulse 77 Resp 18 B/P (MAP) 119/73 (88) Pulse Ox 96 O2 Delivery Room Air Intake and Output 08/06/18 08/06/18 08/07/18 15:01 23:01 07:01 Intake Total 480 ml 490 ml Output Total 680 ml 600 ml Balance -200 ml -110 ml LIVE ACOSTA MD Aug 07, 2018 08:22
[2018-08-07] MEDS: TAMSULOSIN 0.4 MG CAP.ER.24H. PO SCH ×2 (08:27→22:37)
[2018-08-07] MEDS: LISINOPRIL 20 MG TABLET PO SCH (08:28)
[2018-08-07] MEDS: amLODIPine BESYLATE 5 MG TABLET PO SCH (08:28)
--- NOTE | 2018-08-07 10:55 | CONS ---
DATE OF CONSULTATION: 08/06/2018 REASON FOR CONSULTATION: Intracerebral hemorrhage. HISTORY OF PRESENT ILLNESS: The patient is a 57-year-old woman with a history of several previous ischemic strokes. She came to the Emergency Room after she had fallen out of bed the evening prior. The patient was hypertensive in the Emergency Room. Some left-sided weakness and facial droop was seen. CT scan of the head was obtained and she was admitted for further evaluation and treatment. PAST MEDICAL HISTORY: Includes hypertension, glucose intolerance and previous CVAs. PAST SURGICAL HISTORY: ABDI. ALLERGIES: The patient has no known drug allergies. MEDICATIONS: Reviewed on the MRAD and are noncontributory. FAMILY HISTORY: Diabetes. SOCIAL HISTORY: The patient does not smoke or drink alcohol. She is and is disabled. REVIEW OF SYSTEMS: Of ten points was performed and other than outlined above was negative. PHYSICAL EXAMINATION: GENERAL APPEARANCE: The patient is in the Intensive Care Unit, supine, head of the bed is elevated about 20 degrees. She would open her eyes to voice. She would mumble a few words. Her speech was dysarthric. She would slowly and incompletely follow commands. NEUROLOGIC: Her pupils were equal with conjugate gaze. Facial motor examination was consistent with a left facial droop. She reported decreased sensation in the left face. On motor examination, she would give a 4/5 strength in both upper and lower extremities bilaterally. She did report a decrease in sensation in the left upper extremity to light touch. She was hyporeflexic throughout. There was full range of motion of upper and lower extremities bilaterally. LABORATORY DATA: I reviewed a CT scan of the head. On that study, there is a focal right thalamic hemorrhage. IMPRESSION: Intracerebral hemorrhage. There is no significant shift associated with the hemorrhage. I recommend repeat CT scan today the day following her admission and as well control of her blood pressure. I appreciate you asking us to see her. CHELSEA CAMPOS MD DR: ALANA/tameka JOB#: [id number] / [id number] MERE
--- NOTE | 2018-08-07 14:00 | NUR ---
SW consulted for dc needs. Chart reviewed. PT/OT recommends acute rehab. DW pt and she chose [facility]. SW phoned and faxed referral to [facility]. Pt admission and acceptance pending. RADHA will continue to follow.
--- NOTE | 2018-08-07 17:00 | PDOC ---
PROGRESS NOTES Assessment Assessment Right thalamus 1.6 cm hemorrhage. Cerebral edema. Left side weakness. Metabolic encephalopathy. Hypertensive encephalopathy. Hypertensive emergency BP 233/95 mmHg. HTN. HLD. Obesity. RECOMMENDATIONS/PLAN: Continue life support in ICU. BP control, no higher than 150/90 mmHg. Repeat HCT w/o contrast if condition worse. Avoid antiplatelet and anticoagulant agent. Treat medical diseases. OT/PT. Rehab. Past Medical History Cardiovascular: HTN, Hyperlipidemia CENTRAL NERVOUS SYSTEM: CVA Endocrine: Diabetes Past Surgical History Hysterectomy Social History ALCOHOL: none Drugs: None ALLERGY: NKDA MEDICATIONS: Refer to MAR REVIEW OF SYSTEMS: Constitutional: Obesity. Head: No traumatic brain or head injury. Skin: No edema, or rash. Ear: No infection. Eyes: No vision loss, or diplopia. Nose: No bleeding or purulent discharges. Hearing: No hearing decrease. Hearing loss. Neck: No injury. Breast: No history of cancer, masses, or discharges. Cardiac: HTN, HLD Pulmonary: COPD. GI: No GI Ulcer, GI bleeding Urinary/genital: UTI. Endocrine: Obesity. Skeletomuscular: No muscular atrophy, deformity. Neurological: see HP. Psychiatric: Denies drug use/abuse. Otherwise, not [id number] review of systems. PHYSICAL EXAMINATION: General appearance in acute distress. HEENT: Normocephalic and nontraumatic. Eyes, nose, ears, and throat are unremarkable. Neck is supple. No lymphadenopathy. No Crepitus. Cardiovascular: S1, S2, regular rate and rhythm. Pulmonary: Clear to auscultation bilaterally. Abdomen: Bowel sounds are positive. Extremities: No rash, lesions, or edema. No restriction of range of motion NEUROLOGICAL EXAMINATION: Awake. Sitting in chair. Apathic. Not oriented to time, place and person. Able to follow some commands. PERRL. EOMI. CN: Left VII palsy, mild. Muscle tone: Mildly decreased in left side. Muscle strength: 4+ left side, 5 right side. DTR: 1-2 Plantar reflex: Neutral response bilaterally Gait: not examined in bed. Sensory exam: not able to access due to not follow commands. No cerebellar signs elicited. Objective Objective Vital Signs Date Time Temp Pulse Resp B/P (MAP) Pulse Ox O2 Delivery O2 Flow Rate FiO2 08/07/18 15:00 98.1 85 18 120/67 (84) 94 Room Air 98.1 Intake and Output 08/07/18 07:01 Intake Total 970 ml Output Total 1280 ml Balance -310 ml Intake Oral 970 ml Output Urine Total 1280 ml Vitals Signs Vitals VS - Last 72 Hours, by Label Date Time Temp Pulse Resp B/P (MAP) Pulse Ox O2 Delivery O2 Flow Rate FiO2 08/07/18 15:00 98.1 85 18 120/67 (84) 94 Room Air 98.1 08/07/18 11:00 98.1 94 18 102/74 (83) 95 Room Air 98.1 08/07/18 08:28 77 119/73 08/07/18 08:28 77 119/73 08/07/18 08:00 Room Air 08/07/18 07:00 98.4 77 18 119/73 (88) 96 Room Air 98.4 08/07/18 03:18 97.9 90 16 134/72 (92) 94 Room Air 97.9 08/07/18 01:08 98.1 81 16 125/65 (85) 98 Room Air 98.1 08/06/18 23:00 98.6 83 17 115/69 (84) 99 Room Air 98.6 08/06/18 20:00 Room Air 08/06/18 19:00 98.6 96 17 138/66 (90) 98 Room Air 98.6 08/06/18 15:30 72 125/59 (81) 08/06/18 15:00 98.1 86 18 150/102 (118) 100 Room Air 98.1 08/06/18 14:00 86 18 143/86 (105) 98 Room Air 08/06/18 13:45 93 145/81 08/06/18 13:44 96 145/81 08/06/18 13:00 90 16 149/93 (111) 99 Room Air 08/06/18 12:00 98.0 82 16 181/90 (120) 100 Room Air 98.0 08/06/18 12:00 Room Air 08/06/18 11:00 74 15 161/88 (112) 99 Room Air 08/06/18 10:00 78 15 138/80 (99) 100 Room Air 08/06/18 09:00 78 16 159/94 (115) 100 Room Air 08/06/18 08:00 Room Air 08/06/18 08:00 98.4 74 16 129/65 (86) 99 Room Air 98.4 08/06/18 07:00 76 14 132/69 (90) 99 Room Air Laboratory Laboratory Laboratory Tests Test 08/07/18 03:15 White Blood Count 3.7 x10^3/uL (4.0-11.0) Red Blood Count 4.30 x10^6/uL (3.50-5.40) Hemoglobin 12.8 g/dL (12.0-15.5) Hematocrit 38.3 % (36.0-47.0) Mean Corpuscular Volume 89 fL (79-100) Mean Corpuscular Hemoglobin 30 pg (25-35) Mean Corpuscular Hemoglobin Concent 33 g/dL (31-37) Red Cell Distribution Width 14.4 % (11.5-14.5) Platelet Count 256 x10^3/uL (140-400) Sodium Level 141 mmol/L (136-145) Potassium Level 4.0 mmol/L (3.5-5.1) Chloride Level 103 mmol/L (98-107) Carbon Dioxide Level 29 mmol/L (21-32) Anion Gap 9 (6-14) Blood Urea Nitrogen 14 mg/dL (7-20) Creatinine 1.1 mg/dL (0.6-1.0) Estimated GFR (Cockcroft-Gault) 62.2 Glucose Level 112 mg/dL (70-99) Calcium Level 9.3 mg/dL (8.5-10.1) Magnesium Level 2.1 mg/dL (1.8-2.4) Medication Medications Current Medications Acetaminophen (Tylenol) 650 mg PRN Q6HRS PRN PO MILD PAIN / TEMP Last administered on 08/06/18at 20:29; Start 08/06/18 at 20:15 Comment Review of Relevant I have reviewed the following items pranav (where applicable) has been applied. ANUEL MORA MD Aug 07, 2018 17:00
[2018-08-07] MEDS: ATORVASTATIN CALCIUM 20 MG TABLET PO SCH (19:11)
[2018-08-08 03:45] VITALS: BP 138/66
[2018-08-08 07:00] VITALS: BP 122/61
[2018-08-08] MEDS ORDERED: BARIUM SULFATE 40% (APPLE) 148 GM PWD. PO ONE (07:30)
[2018-08-08] MEDS: TAMSULOSIN 0.4 MG CAP.ER.24H. PO SCH (07:54)
[2018-08-08] MEDS: LISINOPRIL 20 MG TABLET PO SCH (07:55)
[2018-08-08] MEDS: amLODIPine BESYLATE 5 MG TABLET PO SCH (07:55)
--- NOTE | 2018-08-08 08:43 | PDOC ---
PROGRESS NOTES Subjective Subjective Patient without complaint. Objective Objective Vital Signs Date Time Temp Pulse Resp B/P (MAP) Pulse Ox O2 Delivery O2 Flow Rate FiO2 08/08/18 07:55 81 122/61 08/08/18 07:18 Room Air 08/08/18 07:00 98.5 16 97 98.5 Intake and Output 08/08/18 07:01 Intake Total 280 ml Output Total 350 ml Balance -70 ml Intake Oral 280 ml Output Urine Total 350 ml # Voids 1 Physical Exam Abdomen: Normal bowel sounds, Soft, No tenderness Heart: Regular rate Extremities: No edema General: Alert, Oriented X3, No acute distress Lungs: Clear to auscultation Assessment Assessment Problems Medical Problems: (1) Acute spont intraparenchymal hemorrhage assoc w/ hypertension Status: Acute Plan Plan of Care 1. Acute hemorrhagic CVA - stable, transfer to Acute Rehab today if arrangements can be made. Video swallow this AM to reevaluate swallow. 2. HTN - controlled, continue home medications. 3. UTI - preliminary culture positive for GNR, will start Bactrim. 4. glucose intolerance - diet-controlled. Comment Review of Relevant I have reviewed the following items pranav (where applicable) has been applied. Labs Laboratory Tests Test 08/06/18 13:55 08/07/18 03:15 Urine Opiates Screen Neg (NEG) Urine Methadone Screen Neg (NEG) Urine Barbiturates Neg (NEG) Urine Phencyclidine Screen Neg (NEG) Urine Amphetamine/Methamphetamine Neg (NEG) Urine Benzodiazepines Screen Neg (NEG) Urine Cocaine Screen Neg (NEG) Urine Cannabinoids Screen Neg (NEG) Urine Ethyl Alcohol Neg (NEG) White Blood Count 3.7 x10^3/uL (4.0-11.0) Red Blood Count 4.30 x10^6/uL (3.50-5.40) Hemoglobin 12.8 g/dL (12.0-15.5) Hematocrit 38.3 % (36.0-47.0) Mean Corpuscular Volume 89 fL (79-100) Mean Corpuscular Hemoglobin 30 pg (25-35) Mean Corpuscular Hemoglobin Concent 33 g/dL (31-37) Red Cell Distribution Width 14.4 % (11.5-14.5) Platelet Count 256 x10^3/uL (140-400) Sodium Level 141 mmol/L (136-145) Potassium Level 4.0 mmol/L (3.5-5.1) Chloride Level 103 mmol/L (98-107) Carbon Dioxide Level 29 mmol/L (21-32) Anion Gap 9 (6-14) Blood Urea Nitrogen 14 mg/dL (7-20) Creatinine 1.1 mg/dL (0.6-1.0) Estimated GFR (Cockcroft-Gault) 62.2 Glucose Level 112 mg/dL (70-99) Calcium Level 9.3 mg/dL (8.5-10.1) Magnesium Level 2.1 mg/dL (1.8-2.4) Microbiology 08/05/18 Urine Culture - Preliminary, Resulted 08/05/18 Urine Culture Result 1 (VERONICA) - Preliminary, Resulted Medications Current Medications Labetalol HCl (Normodyne Iv Push) 10 mg 1X ONCE IVP Last administered on at 12:20; Start 08/05/18 at 12:15; Stop 08/05/18 at 12:16; Status DC Nicardipine HCl 50 mg/Sodium Chloride 250 ml @ 25 mls/hr CONT PRN IV SEE I/O RECORD Last administered on 08/06/18at 07:40; Start 08/05/18 at 13:00; Stop 08/06 at 15:41; Status DC Ondansetron HCl (Zofran) 4 mg PRN Q8HRS PRN IV NAUSEA/VOMITING; Start 08/05/18 at 13:15; Stop 08/06/18 at 13:14; Status DC Fentanyl Citrate (Fentanyl 2ml Vial) 50 mcg PRN Q1HR PRN IV PAIN; Start at 13:15; Stop 08/06/18 at 13:14; Status DC Atorvastatin Calcium (Lipitor) 20 mg QHS PO ; Start 08/05/18 at 21:00 Iohexol (Omnipaque 350 Mg/ml) 75 ml 1X ONCE IV Last administered on 08/05/18at 16:30; Start 08/05/18 at 16:30; Stop 08/05/18 at 16:31; Status DC Info (CONTRAST GIVEN -- Rx MONITORING) 1 each PRN DAILY PRN MC SEE COMMENTS; Start 08/05/18 at 16:30; Stop 08/07/18 at 16:29; Status DC Potassium Chloride/Dextrose/ Sod Cl 1,000 ml @ 75 mls/hr [id number] IV Last administered on 08/06/18at 06:38; Start 08/05/18 at 17:30; Stop 08/06/18 at 15:41 ; Status DC Magnesium Sulfate 50 ml @ 25 mls/hr 1X ONCE IV Last administered on 08/06/18at 09:55; Start 08/06/18 at 08:30; Stop 08/06/18 at 10:29; Status DC Amlodipine Besylate (Norvasc) 5 mg DAILY PO Last administered on 08/08/18at 07: 55; Start 08/06/18 at 13:00 Tamsulosin HCl (Flomax) 0.4 mg DAILY PO Last administered on 08/08/18at 07:54; Start 08/06/18 at 13:00 Lisinopril (Prinivil) 40 mg DAILY PO Last administered on 08/08/18at 07:55; Start 08/06/18 at 13:00 Acetaminophen (Tylenol) 650 mg PRN Q6HRS PRN PO MILD PAIN / TEMP Last administered on 08/06/18at 20:29; Start 08/06/18 at 20:15 Barium Sulfate (Varibar Thin Liquid Apple) 148 gm 1X ONCE PO ; Start 08/08/18 at 07:30; Stop 08/08/18 at 07:31; Status DC Active Scripts Active Benazepril Hcl 40 Mg Tablet 1 Tab PO DAILY 30 Days Amlodipine Besylate 5 Mg Tablet 5 Mg PO DAILY 30 Days Aspirin 81 Mg Tab.chew 1 Tab PO DAILY Flomax (Tamsulosin Hcl) 0.4 Mg Cap.er.24h 1 Cap PO DAILY Vitals/I & O Vital Sign - Last 24 Hours 08/07/18 08/07/18 08/07/18 08/07/18 11:00 15:00 19:45 20:00 Temp 98.1 98.1 98.1 98.1 98.1 98.1 Pulse 94 85 91 Resp 18 18 20 B/P (MAP) 102/74 (83) 120/67 (84) 142/85 (104) Pulse Ox 95 94 98 O2 Delivery Room Air Room Air Room Air Room Air 08/07/18 08/08/18 08/08/18 08/08/18 23:27 03:45 07:00 07:18 Temp 98.4 98.4 98.5 98.4 98.4 98.5 Pulse 85 75 81 Resp 20 18 16 B/P (MAP) 150/81 (104) 138/66 (90) 122/61 (81) Pulse Ox 96 95 97 O2 Delivery Room Air Room Air Room Air Room Air 08/08/18 08/08/18 07:55 07:55 Pulse 81 81 B/P (MAP) 122/61 122/61 Intake and Output 08/07/18 08/07/18 08/08/18 15:01 23:01 07:01 Intake Total 180 ml 100 ml Output Total 350 ml Balance 180 ml -250 ml LIVE ACOSTA MD Aug 08, 2018 08:43
[2018-08-08] MEDS ORDERED: ACET325T9 PO (08:48)
[2018-08-08] MEDS ORDERED: SULF-143 PO (08:48)
--- NOTE | 2018-08-08 08:50 | DISCH ---
DISCHARGE DISCHARGE INFORMATION: FINAL DIAGNOSIS Problems Medical Problems: (1) Acute spont intraparenchymal hemorrhage assoc w/ hypertension Status: Acute CONDITION ON DISCHARGE: Stable CODE STATUS: Code Status: Full [facility] SN[facility] STAY <30 DAYS: Yes POST DISCHARGE ORDERS: ACTIVITY ORDERS: Activity as tolerated WEIGHT BEARING STATUS: As tolerated DIET AFTER DISCHARGE: Dysphagia II mechanical soft, thin liquids. TREATMENT/EQUIPMENT ORDERS: Physical Therapy For: Evalulation/Treatment Occupational Therapy For: Evaluation/Treatment Speech Language Pathology For: Evaluation/Treatment (No aspirin.) DISCHARGE MEDICATIONS: Home Meds Active Scripts Benazepril Hcl (BENAZEPRIL HCL) 40 Mg Tablet, 1 TAB PO DAILY for htn for 30 Days , #30 TAB 5 Refills Prov:LIVE ACOSTA MD 08/05/18 Amlodipine Besylate (AMLODIPINE BESYLATE) 5 Mg Tablet, 5 MG PO DAILY for htn for 30 Days, #30 TAB Prov:LIVE ACOSTA MD 08/05/18 Aspirin (ASPIRIN) 81 Mg Tab.chew, 1 TAB PO DAILY for cva, #30 TAB 3 Refills Prov:LIVE ACOSTA MD 08/05/18 Tamsulosin Hcl (FLOMAX) 0.4 Mg Cap.er.24h, 1 CAP PO DAILY, #7 CAP 0 Refills Prov:JHOANA MIRANDA SENIOR COURT OFFICE ASSISTANT 03/07/18 Discontinued Reported Medications Amlodipine Besylate (AMLODIPINE BESYLATE) 10 Mg Tablet, 10 MG PO DAILY, TAB 01/17/17 Metformin Hcl (METFORMIN HCL) 1,000 Mg Tablet, 1 TAB PO BID, #60 TAB 5 Refills 02/02/15 Discontinued Scripts Cephalexin (CEPHALEXIN) 500 Mg Capsule, 1 CAP PO BID for 5 Days, #10 CAP Prov:ANN MAURER SENIOR COURT OFFICE ASSISTANT 04/13/18 Ciprofloxacin Hcl (CIPRO) 500 Mg Tablet, 1 TAB PO BID, #14 TAB Prov:JHOANA MIRANDA SENIOR COURT OFFICE ASSISTANT 03/07/18 Cephalexin (KEFLEX) 500 Mg Capsule, 1 CAP PO BID, #14 CAP 0 Refills Prov:ROSSI TAYLOR APRN 02/13/18 Nitrofurantoin Monohyd/M-Cryst (MACROBID 100 MG CAPSULE) 100 Mg Capsule, 100 MG PO BID for 5 Days, #10 CAP Prov:DIOMEDES CLIFFORD DO 01/23/18 Clopidogrel Bisulfate (CLOPIDOGREL) 75 Mg Tablet, 75 MG PO DAILYWBKFT for 30 Days, #30 TAB Prov:SOLITARIO DOHERTY MD 01/18/17 Benazepril Hcl (BENAZEPRIL HCL) 20 Mg Tablet, 1 TAB PO DAILY, #30 TAB 5 Refills Prov:LIVE ACOSTA MD 02/03/15 LIVE ACOSTA MD Aug 08, 2018 08:50
--- NOTE | 2018-08-08 08:59 | NUR ---
SW following. Pt has been accepted at [facility] pending insurance approval. Insurance auth for rehab pending. TALYA AMBRIZ.
[2018-08-08] MEDS ORDERED: SMZ/TMP 800/160MG TABLET. PO SCH (09:00)
--- NOTE | 2018-08-08 09:26 | DS ---
DATE OF DISCHARGE: 08/08/2018 CHIEF COMPLAINT: Left-sided weakness. HISTORY OF PRESENT ILLNESS: The patient is a 57-year-old female with a history of several previous ischemic CVAs. She was brought to the Emergency Room via ambulance with the above complaint. She had apparently fallen out of bed at home on the evening prior to admission. She may have laid there for some time until the family found her the next day and called paramedics. Initial evaluation in the Emergency Room showed the patient to have a significantly elevated blood pressure. She had some left-sided weakness and left facial droop. A CT of the head showed an acute intraparenchymal hemorrhage within the right thalamus, and the patient was admitted for further care. HOSPITAL COURSE: The patient was seen in consultation by Neurology and Neurosurgery. A repeat CT of the head the next day showed no worsening of the area of hemorrhage. She had been taking aspirin daily at home prior to admission, and this was discontinued. Her hypertensive urgency was initially treated with a Cardene drip. Her blood pressure quickly improved, and she was transitioned to oral medication. Her blood pressure has been well controlled with these. The patient reported she had not been taking her blood pressure medication daily at home. The patient had some metabolic encephalopathy at admission, but this quickly resolved, and she appears to be at her baseline mental status now. She had some chronic dysarthria from her previous strokes. Speech Therapy has been evaluating the patient's swallowing, which seems to have improved. She is now on a dysphagia 2 diet with thin liquids. A video swallow has been ordered for this morning for reevaluation of her swallowing. The patient had 1-4 wbc's in her urine at admission. She did not complain of any symptoms of a urinary tract infection. Urine culture is now positive for gram-negative rods, and she will be started on Bactrim for treatment of presumed UTI. Her magnesium was a little low at admission, this was replaced IV and is now normal. The patient has chronic urinary retention and takes Flomax for this. She will transfer to acute rehab today if her insurance approves this. FINAL DIAGNOSES: 1. Acute hemorrhagic cerebrovascular accident. 2. History of ischemic cerebrovascular accidents. 3. Hypertension with hypertensive urgency. 4. Urinary tract infection, present on admission. 5. Glucose intolerance. DISCHARGE MEDICATIONS: Bactrim-DS 1 p.o. b.i.d. x 5 days, then discontinue. Tylenol p.r.n., amlodipine 5 mg daily, benazepril 40 mg daily, Flomax 0.4 mg daily. The patient's aspirin 81 mg daily has been discontinued at this time. Follow up with Dr. Knox after discharge from rehabilitation. LIVE KNOX MD DR: GAEL/tameka JOB#: [id number] / [id number]
--- NOTE | 2018-08-08 10:33 | RAD ---
Fluoroscopic video swallow study 08/08/2018 Clinical indications: Dysphagia COMPARISON: None. Findings/technique: Total fluoroscopy time: 4.3 minutes Dose area product: 113.9 uGym2 No images were saved. The examination was performed in conjunction with speech pathology. There are multiple episodes of partial penetration aspiration with thin, nectar and honey barium consistencies with an intermittent spontaneous cough. There is early spillover and mild pyriform residuals. IMPRESSION: Laryngeal penetration and aspiration, as detailed. Please see separately dictated speech pathology report for additional findings and recommendations. Electronically signed by: Demarco Schwarz MD (08/08/2018 10:28 AM) [facility]
[2018-08-08 11:00] VITALS: BP 113/77
--- NOTE | 2018-08-08 13:00 | NUR ---
RADHA following pt. RADHA notified by Christi at [facility] pt is showing to have Medicare A&B as primary and they do not need to authorization. Christi reports she found pt's medicare to be active under the name "Farida Gibson' and has been effective starting May 2018. Pt and pt's daughter also confirmed pt does have medicare. RADHA informed them, they will need to call and notify Colton calzada regarding Medicare coverage. Pt's daughter verbalized understanding. Orders faxed to [facility] and pt will transport to [facility] at 1400. Pt is aware she will be in a semi-private room until [facility] has an open private room. Packet on chart. TALYA RN and RINA Jo notified.
--- NOTE | 2018-08-08 13:50 | NUR ---
Discharge Note: JAMES VIEYRA [address] Discharge instructions and discharge home medications reviewed with Other facility and a copy given. All questions have been answered and understanding verbalized. Report given to PB Mendoza at [facility]. The following instructions and handouts were given: plan of care, medications, tests,etc. Discontinued lines and drains: IV line in right AC removed, catheter tip intact. Patient discharged to [facility] with transportation services representative, wheelchair used for mobility to discharge vehicle.
--- NOTE | 2018-08-08 16:02 | PDOC ---
PROGRESS NOTES Assessment Assessment Right thalamus 1.6 cm hemorrhage. Cerebral edema. Left side weakness. Metabolic encephalopathy. Hypertensive encephalopathy. Hypertensive emergency BP 233/95 mmHg. HTN. HLD. Obesity. RECOMMENDATIONS/PLAN: BP control, no higher than 150/90 mmHg. Repeat HCT w/o contrast if condition worse. Avoid antiplatelet and anticoagulant agent. Treat medical diseases. Rehab. FU with PCP. FU with NS. FU with Neurology as needed. Discussed with her daughter, son and son-in-law at bedside on 08/08/18. Past Medical History Cardiovascular: HTN, Hyperlipidemia CENTRAL NERVOUS SYSTEM: CVA Endocrine: Diabetes Past Surgical History Hysterectomy Social History ALCOHOL: none Drugs: None ALLERGY: NKDA MEDICATIONS: Refer to MAR REVIEW OF SYSTEMS: Constitutional: Obesity. Head: No traumatic brain or head injury. Skin: No edema, or rash. Ear: No infection. Eyes: No vision loss, or diplopia. Nose: No bleeding or purulent discharges. Hearing: No hearing decrease. Hearing loss. Neck: No injury. Breast: No history of cancer, masses, or discharges. Cardiac: HTN, HLD Pulmonary: COPD. GI: No GI Ulcer, GI bleeding Urinary/genital: UTI. Endocrine: Obesity. Skeletomuscular: No muscular atrophy, deformity. Neurological: see HP. Psychiatric: Denies drug use/abuse. Otherwise, not [id number] review of systems. PHYSICAL EXAMINATION: General appearance in acute distress. HEENT: Normocephalic and nontraumatic. Eyes, nose, ears, and throat are unremarkable. Neck is supple. No lymphadenopathy. No Crepitus. Cardiovascular: S1, S2, regular rate and rhythm. Pulmonary: Clear to auscultation bilaterally. Abdomen: Bowel sounds are positive. Extremities: No rash, lesions, or edema. No restriction of range of motion NEUROLOGICAL EXAMINATION: Awake. Sitting in chair eating. Not oriented to time, but knew place and person. Able to follow some commands. PERRL. EOMI. CN: Left VII palsy, mild. Muscle tone: Mildly decreased in left side. Muscle strength: 4+ left side, 5 right side. DTR: 1-2 Plantar reflex: Neutral response bilaterally Gait: not examined in chair. Sensory exam: not able to access due to not follow commands. No cerebellar signs elicited. Objective Objective Vital Signs Date Time Temp Pulse Resp B/P (MAP) Pulse Ox O2 Delivery O2 Flow Rate FiO2 1/30/19 11:00 98.2 109 18 113/77 (89) 98 Room Air 98.2 Intake and Output 08/08/18 07:01 Intake Total 280 ml Output Total 350 ml Balance -70 ml Intake Oral 280 ml Output Urine Total 350 ml # Voids 1 Vitals Signs Vitals VS - Last 72 Hours, by Label Date Time Temp Pulse Resp B/P (MAP) Pulse Ox O2 Delivery O2 Flow Rate FiO2 08/08/18 11:00 98.2 109 18 113/77 (89) 98 Room Air 98.2 08/08/18 07:55 81 122/61 08/08/18 07:55 81 122/61 08/08/18 07:18 Room Air 08/08/18 07:00 98.5 81 16 122/61 (81) 97 Room Air 98.5 08/08/18 03:45 98.4 75 18 138/66 (90) 95 Room Air 98.4 08/07/18 23:27 98.4 85 20 150/81 (104) 96 Room Air 98.4 08/07/18 20:00 Room Air 08/07/18 19:45 98.1 91 20 142/85 (104) 98 Room Air 98.1 08/07/18 15:00 98.1 85 18 120/67 (84) 94 Room Air 98.1 08/07/18 11:00 98.1 94 18 102/74 (83) 95 Room Air 98.1 08/07/18 08:28 77 119/73 08/07/18 08:28 77 119/73 08/07/18 08:00 Room Air 08/07/18 07:00 98.4 77 18 119/73 (88) 96 Room Air 98.4 Laboratory Laboratory Microbiology 08/05/18 Urine Culture - Preliminary, Resulted 08/05/18 Urine Culture Result 1 (VERONICA) - Preliminary, Resulted Medication Medications Current Medications Barium Sulfate (Varibar Thin Liquid Apple) 148 gm 1X ONCE PO Last administered on 08/08/18at 10:05; Start 08/08/18 at 07:30; Stop 08/08/18 at 07:31 ; Status DC Trimethoprim/ Sulfamethoxazole (Bactrim Ds) 1 tab BID PO Last administered on at 08:43; Start 08/08/18 at 09:00; Stop 08/08/18 at 13:57; Status DC Comment Review of Relevant I have reviewed the following items pranav (where applicable) has been applied. ANUEL MORA MD Aug 08, 2018 16:02
== END 2018-08-08 13:50 | DRG 64 ==
LOC: ER 11:14 → 1 WEST ICU 12:55 → 6 SOUTH 08-07 00:30
PROVIDERS: ADMIT Family Medicine; ATTEND Family Medicine
DX: I61.9 Nontraumatic intracerebral hemorrhage, unspecified (principal); G93.6 Cerebral edema; I67.4 Hypertensive encephalopathy; I16.1 Hypertensive emergency; N39.0 Urinary tract infection, site not specified; I10 Essential (primary) hypertension; E11.9 Type 2 diabetes mellitus without complications; E83.42 Hypomagnesemia; E78.5 Hyperlipidemia, unspecified; R29.810 Facial weakness; E66.9 Obesity, unspecified; Z90.710 Acquired absence of both cervix and uterus; Z79.82 Long term (current) use of aspirin; Z79.899 Other long term (current) drug therapy; Z83.3 Family history of diabetes mellitus; Z68.31 Body mass index [BMI] 31.0-31.9, adult; I69.322 Dysarthria following cerebral infarction
CPT/HCPCS: 36415; 51701; 70450; 70496; 70498; 71045; 74230; 80048; 80053; 80061; 80307; 81001; 82962; 83735; 84484; 85025; 85027; 87086; 87641; 93005; 93306; 96374; J3475; J3490; J7042; J7050; Q9967; 92526; 92610; 92611; 97110; 97116; 97530; 97535; 99285-25; J7030